=== PATIENT | female | born 1945 ===

== ENCOUNTER 2017-10-30 06:40 | Day surgery (SDC) | payer MEDICARE, OTHER ==
[2015-12-10 11:20] VITALS: BMI 24.7
[2017-10-30 07:34] LABS: INR 1.3; PROTHROMBIN TIME 14.8 SECONDS (9.7-12.2)
[2017-10-30] MEDS ORDERED: Propofol 10 mg/ml Inj (20 ML) ONE (07:43)
--- NOTE | 2017-10-30 07:46 | CP.SDSHP ---
Same Day Surgery H & P - History Proposed Procedure: EGD Pre-Op Diagnosis: epigastric pain. heartburn refractory to therapy - Previous Medical/Surgical History Cardiac: Hypertension, PVD (hyperlipidemia, Iliac occlusion/clot) Previous Surgical History: Embolectomy. EDELMIRA. Cataracts bilat - Allergies Allergies: Allergies No Known Allergies Allergy (Verified 04/23/13 07:48) - Physical Exam Vital Signs: Vital Signs 10/30/17 07:03 Temperature 99 F Pulse Rate 79 Respiratory 19 Rate Blood Pressure 145/73 O2 Sat by Pulse 100 Oximetry Mental Status: Alert & Oriented x3 Neuro: WNL Heart: WNL Lungs: WNL GI: WNL - {Optional Preform as Required} Other Pertinent Findings: Coumadin held for 4 days - Impression Impression: epigastric pain. heartburn refractory to therapy Pt. Evaluated Today:Candidate for Anesthesia & Procedure: Yes - Date & Time Date: 10/30/17 Time: 07:46 Short Stay Discharge - Short Stay Discharge Admitting Diagnosis/Reason for Visit: EPIGASTRIC PAIN / HEARTBURN / NAUSEA Disposition: HOME/ ROUTINE
[2017-10-30] MEDS ORDERED: Lactated Ringer's 1,000 ML IV ONE (07:50)
[2017-10-30] MEDS ORDERED: Pantoprazole 40 mg EC Tab PO ONE (08:00)
[2017-10-30 08:26] VITALS: TEMP 98.1
[2017-10-30 08:59] VITALS: O2SAT 100
[2017-10-30 09:04] VITALS: BP 116/70; PULSE 77; RESP 12
== END 2017-10-30 09:18 | disposition home or self-care (01) ==
LOC: C.ENDO 06:40
PROVIDERS: ATTEND Internal Medicine Gastroenterology
DX: R12 Heartburn (principal); R11.0 Nausea; K21.0 Gastro-esophageal reflux disease with esophagitis; E78.5 Hyperlipidemia, unspecified; I10 Essential (primary) hypertension; I73.9 Peripheral vascular disease, unspecified; K44.9 Diaphragmatic hernia without obstruction or gangrene; K29.50 Unspecified chronic gastritis without bleeding
CPT/HCPCS: 36415; 43239; 85610; 85730; 88305; J2001; J2704; J7120

== ENCOUNTER 2018-09-05 12:13 | Inpatient (IN) | payer MEDICARE, OTHER | END 2018-09-07 19:51 | disposition home or self-care (01) | LOC: C.ER 12:13 → C.6T 09-06 14:08 → C.3T 19:08 → C.9E 21:06 ==

== ENCOUNTER 2018-09-17 11:27 | Outpatient (CLI) | payer MEDICARE, OTHER | END 2018-09-17 11:28 | disposition home or self-care (01) | LOC: C.CTH 11:27 ==

== ENCOUNTER 2018-09-17 19:29 | Inpatient (IN) | payer MEDICARE, OTHER ==
[2018-09-17 19:29] VITALS: BMI 24.7
--- NOTE | 2018-09-17 20:00 | C.PDOC ---
History Of Present Illness The patient is a 72 year old female whose past medical history includes gastritis, hypertension, high cholesterol, previous blood clot in right lower extremity, and recent diagnosis of retroperitoneal bleed. Patent presents to the ED s/p CT angio that indicated occlusion of left lower extremity artery. Patient was endorsed by Dr. Pichardo to be started on Heparin. Patient currently reports only mild pain to her left lower extremity. She denies fever, chills, night sweats, chest pain, dark/bloody stool, back pain, abdominal pain, right-sided pain or recent falls/trauma. Time Seen by Provider: 09/17/18 20:00 Chief Complaint (Nursing): Lower Extremity Problem/Injury History Per: Patient History/Exam Limitations: no limitations Onset/Duration Of Symptoms: Hrs Current Symptoms Are (Timing): Still Present Additional History Per: Patient - Knee Description Of Injury: denies: Fell - Ankle/Foot Description Of Injury: denies: Fell Past Medical History Reviewed: Historical Data, Nursing Documentation, Vital Signs Vital Signs: Last Vital Signs Temp 98.0 F 09/17/18 19:32 Pulse 60 09/17/18 19:32 Resp 18 09/17/18 19:32 BP 127/60 09/17/18 19:32 Pulse Ox 98 09/17/18 19:32 - Medical History PMH: Alzheimer's Disease (EARLY), Gastritis, HTN, Hypercholesterolemia, Pneumonia Denies: Chronic Kidney Disease Surgical History: Endoscopy, - [facility] Procedures COLONOSCOPY (04/23/13) ESOPHAGOGASTRODUODENOSCOPY [EGD] W/CLOSED BIOPSY (04/23/13) Family History: States: Unknown Family Hx - Social History Hx Alcohol Use: No Hx Substance Use: No - Immunization History Hx Tetanus Toxoid Vaccination: (unk) Hx Influenza Vaccination: Yes Hx Pneumococcal Vaccination: No Review Of Systems Constitutional: Negative for: Fever, Chills Gastrointestinal: Negative for: Abdominal Pain Musculoskeletal: Positive for: Leg Pain (left, lower ). Negative for: Back Pain Physical Exam - Physical Exam Appears: Non-toxic, No Acute Distress Skin: Normal Color, Warm, Dry Head: Atraumatic, Normacephalic Eye(s): bilateral: Normal Inspection Oral Mucosa: Moist Neck: Supple Chest: Symmetrical, No Deformity, No Tenderness Cardiovascular: Rhythm Regular, No Murmur Respiratory: Normal Breath Sounds, No Rales, No Rhonchi, No Wheezing Back: Normal Inspection, No CVA Tenderness, No Vertebral Tenderness, No Decreased ROM, No Muscle Spasm, No Paraspinal Tenderness Extremity: Normal ROM, Capillary Refill (less than 2 seconds ), Other (no discoloration, warm to touch ) Extremity: Bilateral: Atraumatic Pulses: Left Dorsalis Pedis: Normal, Right Dorsalis Pedis: Normal Neurological/Psych: Oriented x3, Normal Speech, Normal Cognition, Normal Motor, Normal Sensation ED Course And Treatment - Laboratory Results Result Diagrams: 09/27/18 06:08 09/27/18 06:00 O2 Sat by Pulse Oximetry: 98 (on RA ) Pulse Ox Interpretation: Normal Medical Decision Making Medical Decision Making: Impression: left lower extremity arterial occlusion Progress: Bloodwork ordered and reviewed. Pt denies any flank pain or vertebral pain. No ecchymosis noted on exam. Appreciate consult with Dr. Pichardo, recommends Heparin. Case discussed with Dr. Holly, who will admit patient to his service and recommends DVT/PE nomogram without bolus. DVT/PE nomogram without bolus ordered and reviewed. Heparin IV given. Disposition - Disposition Disposition: HOSPITALIZED Disposition Time: 21:32 Condition: GOOD - Clinical Impression Clinical Impression: Arterial occlusion - Scribe Statement The provider has reviewed the documentation as recorded by the Scribe (Kiesha Mcduffie) Provider Attestation: All medical record entries made by the Scribe were at my direction and personally dictated by me. I have reviewed the chart and agree that the record accurately reflects my personal performance of the history, physical exam, medical decision making, and the department course for this patient. I have also personally directed, reviewed, and agree with the discharge instructions and disposition.
[2018-09-17] MEDS ORDERED: Heparin25000 units/250ml 1/2NS 25,000 UNITS/250 ML BAG IV ONE (20:29)
[2018-09-17 20:49] LABS: BASO # 0.1 K/uL (0.0-0.2); EOS # 0.3 K/uL (0.0-0.7); LYMPH % 9.6 % (20.0-40.0); MONO # 1.1 K/uL (0.0-0.8)
[2018-09-17 20:56] LABS: BASO % 0.8 % (0.0-2.0); EOS % 2.7 % (0.0-4.0); HEMOGLOBIN 14.6 g/dL (11.0-16.0); LYMPH # 1.1 K/uL (1.0-4.3); MEAN CORPUSCULAR HEMOGLOBIN 26.9 pg (27.0-31.0); MEAN CORPUSCULAR HGB CONC 31.7 g/dL (33.0-37.0); MEAN PLATELET VOLUME 8.5 fL (7.2-11.7); MONO % 9.3 % (0.0-10.0); NEUT # 9.2 K/uL (1.8-7.0); NEUT % 77.6 % (50.0-75.0); PLATELET COUNT 531 K/uL (130-400); RBC 5.45 Mil/uL (3.80-5.20); RED CELL DISTRIBUTION WIDTH 17.4 % (11.5-14.5); WHITE BLOOD COUNT 11.9 K/uL (4.8-10.8)
[2018-09-17 20:57] LABS: MEAN CELL VOLUME 84.7 fL (81.0-99.0)
[2018-09-17 21:06] LABS: ALB/GLOB RATIO 1.4 (1.0-2.1); ALBUMIN 4.5 g/dL (3.5-5.0); ALT/SGPT 21 U/L (9-52); AST/SGOT 68 U/L (14-36); BLOOD UREA NITROGEN 19 mg/dL (7-17); CALCIUM 9.2 mg/dl (8.6-10.4); GFR NON-AFRICAN AMERICAN > 60
[2018-09-17 21:19] LABS: EOSINOPHIL 2 % (0-4); HYPOCHROMIC SLIGHT; LYMPHOCYTE 11 % (20-40); MICROCYTOSIS SLIGHT; MONOCYTE 7 % (0-10); NEUTROPHIL 80 % (50-75); PLATELET ESTIMATE NORMAL (NORMAL); TOTAL CELLS COUNTED 100
[2018-09-17 21:23] LABS: INR 1.1; PROTHROMBIN TIME 12.2 SECONDS (9.7-12.2)
--- NOTE | 2018-09-18 02:05 | CP.PCM.CON ---
History of Present Illness - History of Present Illness History of Present Illness: Vascular Surgery Re: LLE arterial occlusion HPI: 72F well know to Dr. Pichardo's service. Pt presented to the ED s/p CTA tshowing occlusion of the left popliteal artery. Dr. Pichardo told her to come to ED for treatment and possible intervention. Pt currently has mild pain left lower extremity. Denies fever, chills, night sweats, chest pain, dark/bloody stool, back pain, abdominal pain. PMH: GERD, HTN, HLD, hx RLE DVT, hx retroperitoneal bleed, Alzheimers PSH: , Hysterectomy SH: Denies tobacco, EtOH, and drug use FH: Noncontributory All: NKDA Meds: See MAR Review of Systems - Review of Systems All systems: reviewed and no additional remarkable complaints except (as per HPI) Past Patient History - Past Medical History & Family History Past Medical History?: Yes - Past Social History Smoking Status: Never Smoked - CARDIAC Hx Hypercholesterolemia: Yes Hx Hypertension: Yes - PULMONARY Hx Pneumonia: Yes - NEUROLOGICAL Hx Alzheimer's Disease: Yes (EARLY) - HEENT Hx HEENT Problems: Yes Hx Cataracts: Yes (JOSH) - RENAL Hx Chronic Kidney Disease: No - ENDOCRINE/METABOLIC Hx Endocrine Disorders: No - HEMATOLOGICAL/ONCOLOGICAL Hx Blood Disorders: No - INTEGUMENTARY Hx Dermatological Problems: No - MUSCULOSKELETAL/RHEUMATOLOGICAL Hx Musculoskeletal Disorders: Yes Hx Degenerative Joint Disease: Yes Hx Falls: No - GASTROINTESTINAL Hx Gastritis: Yes - GENITOURINARY/GYNECOLOGICAL Hx Genitourinary Disorders: No - PSYCHIATRIC Hx Substance Use: No - SURGICAL HISTORY Hx Surgeries: Yes Hx Cataract Extraction: Yes - ANESTHESIA Hx Anesthesia: Yes Hx Anesthesia Reactions: No Hx Malignant Hyperthermia: No Meds Allergies/Adverse Reactions: Allergies Allergy/AdvReac Type Severity Reaction Status Date / Time No Known Allergies Allergy Verified 09/17/18 19:43 - Medications Medications: Current Medications Amlodipine Besylate (Norvasc) 5 mg PO DAILY [facility] Heparin Sodium/Sodium Chloride (Heparin 18135 Units/250ml 1/2 Normal Saline) 25,000 units in 250 mls @ 11.186 mls/hr IV .[id number] ONE; Protocol Stop: 09/18/18 18:49 Last Admin: 09/17/18 22:10 Dose: 18 units/kg/hr, 11.186 mls/hr Losartan Potassium (Cozaar) 25 mg PO DAILY [facility] Pneumococcal Polyvalent Vaccine (Pneumovax 23 Vaccine) 0.5 ml IM .ONCE ONE Stop: 09/20/18 14:01 Physical Exam - Constitutional Appears: Non-toxic, No Acute Distress - Head Exam Head Exam: ATRAUMATIC, NORMOCEPHALIC - Eye Exam Eye Exam: EOMI. absent: Scleral icterus - ENT Exam ENT Exam: Mucous Membranes Moist Additional comments: trachea midline - Neck Exam Neck exam: Negative for: Lymphadenopathy, Tenderness - Respiratory Exam Respiratory Exam: NORMAL BREATHING PATTERN. absent: Respiratory Distress - Cardiovascular Exam Cardiovascular Exam: +S1, +S2. absent: Bradycardia, Tachycardia - GI/Abdominal Exam GI & Abdominal Exam: Soft. absent: Distended, Tenderness - Rectal Exam Rectal Exam: Deferred - Extremities Exam Extremities exam: Positive for: pedal edema (mild). Negative for: calf tenderness Additional comments: Dopplerable pulse on RLE, no signal on LLE., legs warm to touch - Back Exam Back exam: CVA tenderness (L), CVA tenderness (R) - Neurological Exam Neurological exam: Alert, Oriented x3 - Skin Skin Exam: Dry, Warm Results - Vital Signs Recent Vital Signs: Last Vital Signs Temp 98.3 F 09/17/18 23:47 Pulse 65 09/17/18 23:47 Resp 20 09/17/18 23:47 BP 132/70 09/17/18 23:47 Pulse Ox 95 09/17/18 23:47 - Labs Result Diagrams: 09/17/18 20:37 09/17/18 20:37 Labs: Laboratory Results - last 24 hr 09/17/18 09/17/18 09/17/18 20:37 20:37 21:09 WBC 11.9 H RBC 5.45 H Hgb 14.6 Hct 46.1 MCV 84.7 D MCH 26.9 L MCHC 31.7 L RDW 17.4 H Plt Count 531 H MPV 8.5 Neut % (Auto) 77.6 H Lymph % (Auto) 9.6 L [place] % (Auto) 9.3 Eos % (Auto) 2.7 Baso % (Auto) 0.8 Neut # (Auto) 9.2 H Lymph # (Auto) 1.1 [place] # (Auto) 1.1 H Eos # (Auto) 0.3 Baso # (Auto) 0.1 Neutrophils % (Manual) 80 H Lymphocytes % (Manual) 11 L Monocytes % (Manual) 7 Eosinophils % (Manual) 2 Platelet Estimate Normal Hypochromasia (manual) Slight Microcytosis (manual) Slight PT 12.2 INR 1.1 APTT 30 Sodium 138 Potassium 5.2 Chloride 104 Carbon Dioxide 25 Anion Gap 15 BUN 19 H Creatinine 0.9 Est GFR ( Amer) > 60 Est GFR (Non-Af Amer) > 60 Random Glucose 143 H Calcium 9.2 Total Bilirubin 0.7 AST 68 H D ALT 21 Alkaline Phosphatase 68 Total Protein 7.7 Albumin 4.5 Globulin 3.2 Albumin/Globulin Ratio 1.4 Blood Type Antibody Screen 09/17/18 21:09 WBC RBC Hgb Hct MCV MCH MCHC RDW Plt Count MPV Neut % (Auto) Lymph % (Auto) [place] % (Auto) Eos % (Auto) Baso % (Auto) Neut # (Auto) Lymph # (Auto) [place] # (Auto) Eos # (Auto) Baso # (Auto) Neutrophils % (Manual) Lymphocytes % (Manual) Monocytes % (Manual) Eosinophils % (Manual) Platelet Estimate Hypochromasia (manual) Microcytosis (manual) PT INR APTT Sodium Potassium Chloride Carbon Dioxide Anion Gap BUN Creatinine Est GFR ( Amer) Est GFR (Non-Af Amer) Random Glucose Calcium Total Bilirubin AST ALT Alkaline Phosphatase Total Protein Albumin Globulin Albumin/Globulin Ratio Blood Type A POSITIVE Antibody Screen Negative - Imaging and Cardiology CT scan - abdomen Status: Image reviewed by me, Report reviewed by me CT scan - Angio Status: Image reviewed by me, Report reviewed by me Assessment & Plan - Assessment and Plan (Free Text) Assessment: 72F with LLE popliteal occlusion Plan: Heparin GTT CTA Chest in AM NPO Planning for Thrombectomy D/W Dr. Kylee Randolph PGY4
[2018-09-18 09:40] LABS: HEMOGLOBIN 14.5 g/dL (11.0-16.0); MEAN CELL VOLUME 83.5 fL (81.0-99.0); MEAN CORPUSCULAR HEMOGLOBIN 27.6 pg (27.0-31.0); MEAN CORPUSCULAR HGB CONC 33.1 g/dL (33.0-37.0); RBC 5.26 Mil/uL (3.80-5.20); RED CELL DISTRIBUTION WIDTH 16.6 % (11.5-14.5); WHITE BLOOD COUNT 9.7 K/uL (4.8-10.8)
[2018-09-18 10:00] LABS: ALB/GLOB RATIO 1.4 (1.0-2.1); ALBUMIN 4.2 g/dL (3.5-5.0); ALT/SGPT 26 U/L (9-52); AST/SGOT 41 U/L (14-36); BLOOD UREA NITROGEN 11 mg/dL (7-17); CALCIUM 9.3 mg/dl (8.6-10.4); GFR NON-AFRICAN AMERICAN > 60
--- NOTE | 2018-09-18 11:56 | CP.PCM.CON ---
History of Present Illness - History of Present Illness History of Present Illness: CC: CLI HPI: 72 year old female with following chronic medical problems 1. PVD s/p revascularization now with occlusion of popliteal artery 2. hyperlipidemia chronic and stable on statin 3. HTN is chronic and stable on losartan and norvasc Review of Systems - Review of Systems All systems: reviewed and no additional remarkable complaints except Review of Systems: + Leg pain Past Patient History - Past Medical History & Family History Past Medical History?: Yes - Past Social History Smoking Status: Never Smoked - CARDIAC Hx Hypercholesterolemia: Yes Hx Hypertension: Yes - PULMONARY Hx Pneumonia: Yes - NEUROLOGICAL Hx Alzheimer's Disease: Yes (EARLY) - HEENT Hx HEENT Problems: Yes Hx Cataracts: Yes (JOSH) - RENAL Hx Chronic Kidney Disease: No - ENDOCRINE/METABOLIC Hx Endocrine Disorders: No - HEMATOLOGICAL/ONCOLOGICAL Hx Blood Disorders: No - INTEGUMENTARY Hx Dermatological Problems: No - MUSCULOSKELETAL/RHEUMATOLOGICAL Hx Musculoskeletal Disorders: Yes Hx Degenerative Joint Disease: Yes Hx Falls: No - GASTROINTESTINAL Hx Gastritis: Yes - GENITOURINARY/GYNECOLOGICAL Hx Genitourinary Disorders: No - PSYCHIATRIC Hx Substance Use: No - SURGICAL HISTORY Hx Surgeries: Yes Hx Cataract Extraction: Yes - ANESTHESIA Hx Anesthesia: Yes Hx Anesthesia Reactions: No Hx Malignant Hyperthermia: No Meds Allergies/Adverse Reactions: Allergies Allergy/AdvReac Type Severity Reaction Status Date / Time No Known Allergies Allergy Verified 09/17/18 19:43 - Medications Medications: Current Medications Amlodipine Besylate (Norvasc) 5 mg PO DAILY [facility] Heparin Sodium/Sodium Chloride (Heparin 46055 Units/250ml 1/2 Normal Saline) 25,000 units in 250 mls @ 11.186 mls/hr IV .[id number] ONE; Protocol Stop: 09/18/18 18:49 Last Admin: 09/17/18 22:10 Dose: 18 units/kg/hr, 11.186 mls/hr Losartan Potassium (Cozaar) 25 mg PO DAILY [facility] Pneumococcal Polyvalent Vaccine (Pneumovax 23 Vaccine) 0.5 ml IM .ONCE ONE Stop: 09/20/18 14:01 Physical Exam - Constitutional Appears: Well, Non-toxic - Head Exam Head Exam: ATRAUMATIC, NORMAL INSPECTION - Eye Exam Eye Exam: PERRL, Scleral icterus - ENT Exam ENT Exam: Mucous Membranes Moist, Normal External Ear Exam - Neck Exam Neck exam: Positive for: Full Rom. Negative for: Lymphadenopathy, Thyromegaly - Respiratory Exam Respiratory Exam: Clear to Auscultation Bilateral, NORMAL BREATHING PATTERN - Cardiovascular Exam Cardiovascular Exam: REGULAR RHYTHM, RRR, +S1, +S2. absent: JVD Additional comments: cool right lower extremtiy, + sensation, absent DP, absent PT - GI/Abdominal Exam GI & Abdominal Exam: Normal Bowel Sounds. absent: Organomegaly - Extremities Exam Extremities exam: Positive for: normal inspection. Negative for: calf tenderness - Neurological Exam Neurological exam: CN II-XII Intact, Oriented x3 - Psychiatric Exam Psychiatric exam: Normal Affect, Normal Mood Results - Vital Signs Recent Vital Signs: Last Vital Signs Temp 98.3 F 09/17/18 23:47 Pulse 68 09/18/18 01:00 Resp 20 09/17/18 23:47 BP 132/70 09/17/18 23:47 Pulse Ox 95 09/17/18 23:47 - Labs Result Diagrams: 09/18/18 09:15 09/18/18 09:15 Labs: Laboratory Results - last 24 hr 09/17/18 09/17/18 09/17/18 20:37 20:37 21:09 WBC 11.9 H RBC 5.45 H Hgb 14.6 Hct 46.1 MCV 84.7 D MCH 26.9 L MCHC 31.7 L RDW 17.4 H Plt Count 531 H MPV 8.5 Neut % (Auto) 77.6 H Lymph % (Auto) 9.6 L [place] % (Auto) 9.3 Eos % (Auto) 2.7 Baso % (Auto) 0.8 Neut # (Auto) 9.2 H Lymph # (Auto) 1.1 [place] # (Auto) 1.1 H Eos # (Auto) 0.3 Baso # (Auto) 0.1 Neutrophils % (Manual) 80 H Lymphocytes % (Manual) 11 L Monocytes % (Manual) 7 Eosinophils % (Manual) 2 Platelet Estimate Normal Hypochromasia (manual) Slight Microcytosis (manual) Slight PT 12.2 INR 1.1 APTT 30 Sodium 138 Potassium 5.2 Chloride 104 Carbon Dioxide 25 Anion Gap 15 BUN 19 H Creatinine 0.9 Est GFR ( Amer) > 60 Est GFR (Non-Af Amer) > 60 Random Glucose 143 H Calcium 9.2 Phosphorus Magnesium Total Bilirubin 0.7 AST 68 H D ALT 21 Alkaline Phosphatase 68 Total Protein 7.7 Albumin 4.5 Globulin 3.2 Albumin/Globulin Ratio 1.4 Blood Type Antibody Screen 09/17/18 09/18/18 09/18/18 21:09 03:32 09:15 WBC 9.7 RBC 5.26 H Hgb 14.5 Hct 43.9 MCV 83.5 MCH 27.6 MCHC 33.1 RDW 16.6 H Plt Count 439 H MPV 8.0 Neut % (Auto) Lymph % (Auto) [place] % (Auto) Eos % (Auto) Baso % (Auto) Neut # (Auto) Lymph # (Auto) [place] # (Auto) Eos # (Auto) Baso # (Auto) Neutrophils % (Manual) Lymphocytes % (Manual) Monocytes % (Manual) Eosinophils % (Manual) Platelet Estimate Hypochromasia (manual) Microcytosis (manual) PT INR APTT 77 H D Sodium Potassium Chloride Carbon Dioxide Anion Gap BUN Creatinine Est GFR ( Amer) Est GFR (Non-Af Amer) Random Glucose Calcium Phosphorus Magnesium Total Bilirubin AST ALT Alkaline Phosphatase Total Protein Albumin Globulin Albumin/Globulin Ratio Blood Type A POSITIVE Antibody Screen Negative 09/18/18 09/18/18 09:15 09:15 WBC RBC Hgb Hct MCV MCH MCHC RDW Plt Count MPV Neut % (Auto) Lymph % (Auto) [place] % (Auto) Eos % (Auto) Baso % (Auto) Neut # (Auto) Lymph # (Auto) [place] # (Auto) Eos # (Auto) Baso # (Auto) Neutrophils % (Manual) Lymphocytes % (Manual) Monocytes % (Manual) Eosinophils % (Manual) Platelet Estimate Hypochromasia (manual) Microcytosis (manual) PT INR APTT 73 H Sodium 138 Potassium 4.4 Chloride 104 Carbon Dioxide 28 Anion Gap 10 BUN 11 Creatinine 0.7 Est GFR ( Amer) > 60 Est GFR (Non-Af Amer) > 60 Random Glucose 156 H Calcium 9.3 Phosphorus 3.3 Magnesium 1.9 Total Bilirubin 0.5 AST 41 H D ALT 26 Alkaline Phosphatase 78 Total Protein 7.1 Albumin 4.2 Globulin 2.9 Albumin/Globulin Ratio 1.4 Blood Type Antibody Screen - Imaging and Cardiology CT scan - abdomen Status: Pending Assessment & Plan - Assessment and Plan (Free Text) Assessment: 72 year old female wtih coagulopathy now with critical limb ischemia she is acceptable risk for urgent procedure, 2D echo shows normal filling pressures and normal systolic function no further work up is required hypercoagulable state - Hematology, anticoagulation Ideally the bleeding nidus should be identified and possibly removed surgically to allow watcher automat long goods anticoagulation Hyperlipidemia chronic and stable on statin HTN is chronic amlodipine and losartan Discussed the difficult therapeutic challenge we are in with the patient and her daughter
[2018-09-18] MEDS: Morphine 4 MG/ML VIAL IVP PRN (12:56)
--- NOTE | 2018-09-18 12:56 | CT ---
Date of service: 09/18/2018 PROCEDURE: CT Abdomen and Pelvis without intravenous contrast HISTORY: bleeding COMPARISON: 09/07/2018 TECHNIQUE: Without contrast.. Contrast dose: 0 Radiation dose: Total exam DLP = 520.56 mGy-cm. This CT exam was performed using one or more of the following dose reduction techniques: Automated exposure control, adjustment of the mA and/or kV according to patient size, and/or use of iterative reconstruction technique. FINDINGS: LOWER THORAX: Unremarkable. LIVER: Normal size, contour and attenuation. Rounded low-attenuation 1.5 cm mass in right lobe of liver. Nonspecific. Possible cyst or hemangioma. GALLBLADDER AND BILE DUCTS: Unremarkable. PANCREAS: Unremarkable. No gross lesion or ductal dilatation. SPLEEN: Unremarkable. ADRENALS: There is a subacute hematoma in the region of the right adrenal gland, possibly an adrenal hemorrhage. There is retroperitoneal hemorrhage adjacent to the right adrenal gland extending to the level of the inferior vena cava the retroperitoneal hemorrhage seen inferior to this on examination of 09/07/2018 has resolved. The left adrenal is unremarkable in appearance. KIDNEYS AND URETERS: There is residual contrast seen still within the renal cortex bilaterally raising suspicion of acute kidney injury, possibly contrast induced. In addition, there are several wedge shaped areas of nonenhancement in the right renal cortex which may reflect pyelonephritis or areas of focal cortical infarction. There is some linear high attenuation seen in the upper pole right kidney extending through the cortex. There is similar linear high attenuation seen in the mid left kidney extending through the cortex. Significance uncertain on these long delayed images following contrast administration on the previous day. VASCULATURE: Unremarkable. No aortic aneurysm. There is calcification of the abdominal aorta. BOWEL: Unremarkable. No obstruction. No gross mural thickening. APPENDIX: Unremarkable. Normal appendix. PERITONEUM: No ascites or pneumoperitoneum. There is a small amount of blood seen along the lower right paracolic gutter. LYMPH NODES: Unremarkable. No enlarged lymph nodes. BLADDER: Bladder is poorly distended. High attenuation excreted contrast material is seen within the bladder lumen. REPRODUCTIVE: Status post hysterectomy BONES: Thoracolumbar levoscoliosis. No acute fracture. OTHER FINDINGS: None. IMPRESSION: Retained cortical contrast in both kidneys from contrast study of the previous day. This raises a suspicion of contrast induced nephropathy or acute kidney injury. Also noted is several wedge-shaped areas of poor enhancement in the right renal cortex raising suspicion of renal infarcts. Differential diagnosis includes pyelonephritis. Correlate with urinalysis and history.. Right adrenal hemorrhage, subacute. Additional minor findings as above.
[2018-09-18] MEDS ORDERED: Iohexol 350mg/ml 100 ML ONE (13:23)
--- NOTE | 2018-09-18 13:50 | CARD ---
APPROVED REPORT Date of service: 09/18/2018 EXAM: Two-dimensional and M-mode echocardiogram with Doppler and color Doppler. Other Information Quality : GoodRhythm : INDICATION Pre-Op RISK FACTORS Hypertension 2D DIMENSIONS IVSd0.7 (0.7-1.1cm)LVDd3.8 (3.9-5.9cm) PWd1.0 (0.7-1.1cm)LA Sznuvx35 (18-58mL) LVDs2.7 (2.5-4.0cm)FS (%) 28.4 % LVEF (%)55.5 (>50%)LVEF (Story's)68.48 % IVC0.00 cm M-Mode DIMENSIONS RVDd1.31 (2.1-3.2cm)Left Atrium (MM)4.16 (2.5-4.0cm) IVSd1.28 (0.7-1.1cm)Aortic Root2.67 (2.2-3.7cm) LVDd5.04 (4.0-5.6cm)Aortic Cusp Exc.1.99 (1.5-2.0cm) PWd0.85 (0.7-1.1cm)FS (%) 51 % LVDs2.46 (2.0-3.8cm)LVEF (%)60 (>50%) Mitral Valve MV E Amyxrucf386.1cm/sMV A Bfwpvpbm89.8cm/sE/A ratio1.2 TDI Lateral E' Peak V8.35cm/sMedial E' Peak V8.48cm/sE/Lateral E'12.0 E/Medial E'11.8 Tricuspid Valve TR Peak [id number]/sTR Peak Gr.[id number] LEFT VENTRICLE The left ventricle is normal size. There is normal left ventricular wall thickness. The Ejection Fraction is 60-65%. There is normal LV segmental wall motion. The left ventricular diastolic function is normal. RIGHT VENTRICLE The right ventricle is normal size. The right ventricular systolic function is normal. ATRIA The left atrium is mildly dilated. The right atrium size is normal. The interatrial septum is intact with no evidence for an atrial septal defect. AORTIC VALVE The aortic valve is normal in structure. No aortic regurgitation is present. MITRAL VALVE The mitral valve is normal in structure. Mitral regurgitation is trace. TRICUSPID VALVE The tricuspid valve is normal in structure. There is mild tricuspid regurgitation. Right ventricular systolic pressure is estimated at 28 mmHg. There is no pulmonary hypertension. PULMONIC VALVE The pulmonary valve is normal in structure. There is mild pulmonic valvular regurgitation. GREAT VESSELS The aortic root is normal in size. The IVC is normal in size and collapses >50% with inspiration. PERICARDIAL EFFUSION small posterior pericardial effusion is noted. <Conclusion> The left ventricle is normal size. There is normal left ventricular wall thickness. The Ejection Fraction is 60-65%. The left ventricular diastolic function is normal. The left atrium is mildly dilated. There is mild tricuspid regurgitation. Right ventricular systolic pressure is estimated at 28 mmHg. There is no pulmonary hypertension. The aortic root is normal in size. The IVC is normal in size and collapses >50% with inspiration. small posterior pericardial effusion is noted.
[2018-09-18] MEDS ORDERED: Magnesium Citrate Oral SOL (300 ml) PO ONE (14:30)
[2018-09-18] MEDS ORDERED: Iodixanol 320 mg/ml 150 ml Bottle IV ONE (15:43)
--- NOTE | 2018-09-18 17:00 | CP.PCM.CON ---
History of Present Illness - History of Present Illness History of Present Illness: 72 yo woman admitted for thrombectomy after she was seen by Vascular and found to have an acute popliteal artery thrombus. PMHx- The patient has a history of Rt. lower extremity thrombus in 2016, s/p thrombectomy, placed on coumadin and Pletal, did fairly well, until recently when she c/o Rt. flank pain and a scan showed adrenal and retroperitoneal hemorrhage, requiring her to stop the Coumadin and Pletal. 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 The patient denies any past history of bleeding, easy bruising, other DVTs, early losses Past Patient History - Past Medical History & Family History Past Medical History?: Yes - Past Social History Smoking Status: Never Smoked - CARDIAC Hx Hypercholesterolemia: Yes Hx Hypertension: Yes - PULMONARY Hx Pneumonia: Yes - NEUROLOGICAL Hx Alzheimer's Disease: Yes (EARLY) - HEENT Hx HEENT Problems: Yes Hx Cataracts: Yes (JOSH) - RENAL Hx Chronic Kidney Disease: No - ENDOCRINE/METABOLIC Hx Endocrine Disorders: No - HEMATOLOGICAL/ONCOLOGICAL Hx Blood Disorders: No - INTEGUMENTARY Hx Dermatological Problems: No - MUSCULOSKELETAL/RHEUMATOLOGICAL Hx Musculoskeletal Disorders: Yes Hx Degenerative Joint Disease: Yes Hx Falls: No - GASTROINTESTINAL Hx Gastritis: Yes - GENITOURINARY/GYNECOLOGICAL Hx Genitourinary Disorders: No - PSYCHIATRIC Hx Substance Use: No - SURGICAL HISTORY Hx Surgeries: Yes Hx Cataract Extraction: Yes - ANESTHESIA Hx Anesthesia: Yes Hx Anesthesia Reactions: No Hx Malignant Hyperthermia: No Meds Allergies/Adverse Reactions: Allergies Allergy/AdvReac Type Severity Reaction Status Date / Time No Known Allergies Allergy Verified 09/17/18 19:43 - Medications Medications: Current Medications Amlodipine Besylate (Norvasc) 5 mg PO DAILY [facility] Last Admin: 09/18/18 12:06 Dose: 5 mg Heparin Sodium/Sodium Chloride (Heparin 81201 Units/250ml 1/2 Normal Saline) 25,000 units in 250 mls @ 11.186 mls/hr IV .[id number] ONE; Protocol Stop: 09/18/18 18:49 Last Admin: 09/17/18 22:10 Dose: 18 units/kg/hr, 11.186 mls/hr Losartan Potassium (Cozaar) 25 mg PO DAILY [facility] Last Admin: 09/18/18 12:06 Dose: 25 mg Morphine Sulfate (Morphine) 2 mg IVP Q4 PRN PRN Reason: Pain, severe (8-10) Last Admin: 09/18/18 12:56 Dose: 2 mg Pneumococcal Polyvalent Vaccine (Pneumovax 23 Vaccine) 0.5 ml IM .ONCE ONE Stop: 09/20/18 14:01 Results - Vital Signs Recent Vital Signs: Last Vital Signs Temp 98 F 09/18/18 16:48 Pulse 78 09/18/18 16:48 Resp 20 09/18/18 16:48 BP 156/78 H 09/18/18 16:48 Pulse Ox 95 09/18/18 16:48 - Labs Result Diagrams: 09/18/18 09:15 09/18/18 09:15 Labs: Laboratory Results - last 24 hr 09/17/18 09/17/18 09/17/18 20:37 20:37 21:09 WBC 11.9 H RBC 5.45 H Hgb 14.6 Hct 46.1 MCV 84.7 D MCH 26.9 L MCHC 31.7 L RDW 17.4 H Plt Count 531 H MPV 8.5 Neut % (Auto) 77.6 H Lymph % (Auto) 9.6 L [place] % (Auto) 9.3 Eos % (Auto) 2.7 Baso % (Auto) 0.8 Neut # (Auto) 9.2 H Lymph # (Auto) 1.1 [place] # (Auto) 1.1 H Eos # (Auto) 0.3 Baso # (Auto) 0.1 Neutrophils % (Manual) 80 H Lymphocytes % (Manual) 11 L Monocytes % (Manual) 7 Eosinophils % (Manual) 2 Platelet Estimate Normal Hypochromasia (manual) Slight Microcytosis (manual) Slight PT 12.2 INR 1.1 APTT 30 Sodium 138 Potassium 5.2 Chloride 104 Carbon Dioxide 25 Anion Gap 15 BUN 19 H Creatinine 0.9 Est GFR ( Amer) > 60 Est GFR (Non-Af Amer) > 60 Random Glucose 143 H Calcium 9.2 Phosphorus Magnesium Total Bilirubin 0.7 AST 68 H D ALT 21 Alkaline Phosphatase 68 Total Protein 7.7 Albumin 4.5 Globulin 3.2 Albumin/Globulin Ratio 1.4 Blood Type Antibody Screen 09/17/18 09/18/18 09/18/18 21:09 03:32 09:15 WBC 9.7 RBC 5.26 H Hgb 14.5 Hct 43.9 MCV 83.5 MCH 27.6 MCHC 33.1 RDW 16.6 H Plt Count 439 H MPV 8.0 Neut % (Auto) Lymph % (Auto) [place] % (Auto) Eos % (Auto) Baso % (Auto) Neut # (Auto) Lymph # (Auto) [place] # (Auto) Eos # (Auto) Baso # (Auto) Neutrophils % (Manual) Lymphocytes % (Manual) Monocytes % (Manual) Eosinophils % (Manual) Platelet Estimate Hypochromasia (manual) Microcytosis (manual) PT INR APTT 77 H D Sodium Potassium Chloride Carbon Dioxide Anion Gap BUN Creatinine Est GFR ( Amer) Est GFR (Non-Af Amer) Random Glucose Calcium Phosphorus Magnesium Total Bilirubin AST ALT Alkaline Phosphatase Total Protein Albumin Globulin Albumin/Globulin Ratio Blood Type A POSITIVE Antibody Screen Negative 09/18/18 09/18/18 09:15 09:15 WBC RBC Hgb Hct MCV MCH MCHC RDW Plt Count MPV Neut % (Auto) Lymph % (Auto) [place] % (Auto) Eos % (Auto) Baso % (Auto) Neut # (Auto) Lymph # (Auto) [place] # (Auto) Eos # (Auto) Baso # (Auto) Neutrophils % (Manual) Lymphocytes % (Manual) Monocytes % (Manual) Eosinophils % (Manual) Platelet Estimate Hypochromasia (manual) Microcytosis (manual) PT INR APTT 73 H Sodium 138 Potassium 4.4 Chloride 104 Carbon Dioxide 28 Anion Gap 10 BUN 11 Creatinine 0.7 Est GFR ( Amer) > 60 Est GFR (Non-Af Amer) > 60 Random Glucose 156 H Calcium 9.3 Phosphorus 3.3 Magnesium 1.9 Total Bilirubin 0.5 AST 41 H D ALT 26 Alkaline Phosphatase 78 Total Protein 7.1 Albumin 4.2 Globulin 2.9 Albumin/Globulin Ratio 1.4 Blood Type Antibody Screen Assessment & Plan - Assessment and Plan (Free Text) Assessment: 72 yo woman admitted with left lower extremity acute arterial thrombus, found when she c/o leg pain and went to see the vascular surgeon. The patient has a history of recurrent arterial thrombi, with no obvious risk factors or atherosclerotic changes in her vessels. Will do a hypercoagulable work up, including lupus anticoagulant. Agree with AC+ antiplatelet agent. Because of her persistently elevated platelet count, need to r/o myeloproliferative disease even though the increase is mild and likely reactive.
--- NOTE | 2018-09-18 17:18 | CT ---
PROCEDURE: CT Angiography Chest, Abdomen and Pelvis with and without intravenous contrast HISTORY: Evaluate Thoracic Aorta COMPARISON: CT abdomen/pelvis 09/18/2018 and 09/07/2018 TECHNIQUE: Contiguous axial images of the chest, abdomen and pelvis were obtained in the phase of aortic enhancement. A noncontrast enhanced CT of the chest was also obtained to evaluate for possible intramural thrombus. Coronal and sagittal reformats were generated. IV dose administered: 100 mL Visipaque 320 Radiation dose: Total exam DLP = 953.79 mGy-cm. This CT exam was performed using one or more of the following dose reduction techniques: Automated exposure control, adjustment of the mA and/or kV according to patient size, and/or use of iterative reconstruction technique. FINDINGS: CT ANGIOGRAPHY OF THE CHEST WITH & WITHOUT CONTRAST: AORTA (CHEST AND ABDOMEN): There is no evidence of thoracic aortic dissection. There is atherosclerotic plaque seen in the mid to distal descending thoracic aorta. There is no atherosclerotic plaque seen in the aortic arch or ascending thoracic aorta. There is minimal atherosclerotic intimal calcification seen throughout the thoracic aorta The celiac axis, superior mesenteric artery, inferior mesenteric artery and the renal arteries are widely patent. The iliac bifurcation is unremarkable. LUNGS: Minimal linear scar/atelectasis in the left lower lobe. No pulmonary mass. No infiltrate. MEDIASTINUM: Unremarkable. Normal caliber aorta and pulmonary arterial trunk. No aortic dissection. Normal size heart. LYMPH NODES: Unremarkable. PLEURA: Unremarkable. No pneumothorax. No pleural fluid. BONES: Unremarkable. OTHER FINDINGS: None. CT ANGIOGRAPHY OF THE ABDOMEN AND PELVIS WITH CONTRAST: LIVER: Nonspecific 1.5 cm rounded low low-attenuation mass in the right lobe of the liver otherwise unremarkable. GALLBLADDER AND BILE DUCTS: Unremarkable. PANCREAS: Diffuse pancreatic ductal dilatation.. No pancreatic mass identified. There is a question of pancreas divisum on the basis of this examination. Recommend gastroenterology consult in consideration of possible endoscopic ultrasound examination the possibility of ampullary stricture or ampullary neoplasm should also be considered.. SPLEEN: Several wedge-shaped areas of low attenuation may reflect prior splenic infarcts. No discrete mass. ADRENALS: Right adrenal hemorrhage again noted as described on earlier examination of the same date. Unremarkable left adrenal. KIDNEYS AND URETERS: Several wedge-shaped areas of poor enhancement in the right renal cortex may reflect areas of infarction or pyelonephritis. There is probable old infarct in the upper pole left kidney with cortical scar VASCULATURE: No evidence of abdominal aortic aneurysm. There is atherosclerotic calcification of the abdominal aorta STOMACH AND BOWEL: Unremarkable. No obstruction. No gross mural thickening. APPENDIX: Not included PERITONEUM: Unremarkable. No free fluid. No free air. LYMPH NODES: Unremarkable. No enlarged lymph nodes. BLADDER: Not incur REPRODUCTIVE: Not included BONES: No acute fracture. OTHER FINDINGS: None. IMPRESSION: Atherosclerotic plaque is seen along the mid and distal thoracic aorta. No evidence of aortic dissection or aneurysmal dilatation. Question is raised of possible pancreas divisum. Recommend gastroenterology consult in consideration of possible the endoscopic ultrasound. Question of splenic infarcts. Question of right renal infarcts versus right pyelonephritis right adrenal hemorrhage, stable
--- NOTE | 2018-09-18 20:42 | CP.PCM.HP ---
History of Present Illness - History of Present Illness History of Present Illness: Chief complaint: Worsening left leg pain. HPI: 72-year-old female with a history of thromboembolism, hypertension, hyperlipidemia, gastroesophageal reflux disease came to the emergency room with increasing pain in the left leg. She was recently hospitalized with a retroperitoneal bleed. Following that episode the patient was not taking the Coumadin as well as a Pletal as per cardiology, vascular surgical and PMD opinion.. Patient went to see PMD. At that time she was complaining of left leg pain. Patient was also seen by program project analyst, and then seen by electronic industrial controls mechanic vascular surgery. Patient was having increasing pain in the left leg. Immediately she had CT angiogram, showing evidence of arterial occlusion of the left leg. I spoke to the vascular surgeon Dr. Pichardo, patient needed hospitalization. She came into the emergency room with worsening pain. She has a cold lower extremity on the left side. Worsening pain even at rest noted. Mild nausea vomiting no abdominal pain. Past medical history: DVT, hypertension, hyperlipidemia, gastroesophageal reflux disease Surgical history: Hysterectomy. CT angiogram of the right leg with thrombolysis for acute thrombotic ectatic of the right leg Family history noncontributory Social history non-smoker nonalcoholic. No known drug allergy Medications reviewed. Review of system: Patient is currently having flank pain. Mild nausea noted. No chest pain or shortness of breath On examination: Vital signs stable otherwise. Chest good air entry no rales noted. Heart sounds are regular Abdomen soft. Tenderness in the left leg noted. Patient has a cold lower extremity in the left side. Labs reviewed Persistent bleeding. Stable. Bleeding in the CT scan of the abdomen showing Otherwise labs are stable. Assessment and recommendation: 72-year-old female with a history of arterial thromboembolism, hypertension, hyperlipidemia, gastroesophageal reflux disease. Patient also has a thrombotic episodes. History of thrombocytosis. Patient now admitted with acute retroperitoneal bleeding on the right side involving the adrenal glands. Patient now admitted with a possible ischemia of the left lower extremity. We will get vascular surgery evaluation. Started on IV heparin. We will closely monitor the retroperitoneal hematoma. Patient is at high risk for bleeding and also high risk for thrombosis. Cardiology, hematology evaluation. Discussed with the family. We will follow the patient Present on Admission - Present on Admission Any Indicators Present on Admission: No History of DVT/PE: No History of Uncontrolled Diabetes: No Urinary Catheter: No Decubitus Ulcer Present: No Past Patient History - Past Medical History & Family History Past Medical History?: Yes - Past Social History Smoking Status: Never Smoked - CARDIAC Hx Hypercholesterolemia: Yes Hx Hypertension: Yes - PULMONARY Hx Pneumonia: Yes - NEUROLOGICAL Hx Alzheimer's Disease: Yes (EARLY) - HEENT Hx HEENT Problems: Yes Hx Cataracts: Yes (JOSH) - RENAL Hx Chronic Kidney Disease: No - ENDOCRINE/METABOLIC Hx Endocrine Disorders: No - HEMATOLOGICAL/ONCOLOGICAL Hx Blood Disorders: No - INTEGUMENTARY Hx Dermatological Problems: No - MUSCULOSKELETAL/RHEUMATOLOGICAL Hx Musculoskeletal Disorders: Yes Hx Degenerative Joint Disease: Yes Hx Falls: No - GASTROINTESTINAL Hx Gastritis: Yes - GENITOURINARY/GYNECOLOGICAL Hx Genitourinary Disorders: No - PSYCHIATRIC Hx Substance Use: No - SURGICAL HISTORY Hx Surgeries: Yes Hx Cataract Extraction: Yes - ANESTHESIA Hx Anesthesia: Yes Hx Anesthesia Reactions: No Hx Malignant Hyperthermia: No Meds Allergies/Adverse Reactions: Allergies Allergy/AdvReac Type Severity Reaction Status Date / Time No Known Allergies Allergy Verified 09/17/18 19:43 Results - Vital Signs Recent Vital Signs: Last Vital Signs Temp 98 F 09/18/18 16:48 Pulse 78 09/18/18 16:48 Resp 20 09/18/18 16:48 BP 156/78 H 09/18/18 16:48 Pulse Ox 95 09/18/18 16:48 - Labs Result Diagrams: 09/18/18 09:15 09/18/18 09:15 Labs: Laboratory Results - last 24 hr 09/17/18 09/17/18 09/17/18 20:37 20:37 21:09 WBC 11.9 H RBC 5.45 H Hgb 14.6 Hct 46.1 MCV 84.7 D MCH 26.9 L MCHC 31.7 L RDW 17.4 H Plt Count 531 H MPV 8.5 Neut % (Auto) 77.6 H Lymph % (Auto) 9.6 L [place] % (Auto) 9.3 Eos % (Auto) 2.7 Baso % (Auto) 0.8 Neut # (Auto) 9.2 H Lymph # (Auto) 1.1 [place] # (Auto) 1.1 H Eos # (Auto) 0.3 Baso # (Auto) 0.1 Neutrophils % (Manual) 80 H Lymphocytes % (Manual) 11 L Monocytes % (Manual) 7 Eosinophils % (Manual) 2 Platelet Estimate Normal Hypochromasia (manual) Slight Microcytosis (manual) Slight PT 12.2 INR 1.1 APTT 30 Sodium 138 Potassium 5.2 Chloride 104 Carbon Dioxide 25 Anion Gap 15 BUN 19 H Creatinine 0.9 Est GFR ( Amer) > 60 Est GFR (Non-Af Amer) > 60 Random Glucose 143 H Calcium 9.2 Phosphorus Magnesium Total Bilirubin 0.7 AST 68 H D ALT 21 Alkaline Phosphatase 68 Total Protein 7.7 Albumin 4.5 Globulin 3.2 Albumin/Globulin Ratio 1.4 Blood Type Antibody Screen 09/17/18 09/18/18 09/18/18 21:09 03:32 09:15 WBC 9.7 RBC 5.26 H Hgb 14.5 Hct 43.9 MCV 83.5 MCH 27.6 MCHC 33.1 RDW 16.6 H Plt Count 439 H MPV 8.0 Neut % (Auto) Lymph % (Auto) [place] % (Auto) Eos % (Auto) Baso % (Auto) Neut # (Auto) Lymph # (Auto) [place] # (Auto) Eos # (Auto) Baso # (Auto) Neutrophils % (Manual) Lymphocytes % (Manual) Monocytes % (Manual) Eosinophils % (Manual) Platelet Estimate Hypochromasia (manual) Microcytosis (manual) PT INR APTT 77 H D Sodium Potassium Chloride Carbon Dioxide Anion Gap BUN Creatinine Est GFR ( Amer) Est GFR (Non-Af Amer) Random Glucose Calcium Phosphorus Magnesium Total Bilirubin AST ALT Alkaline Phosphatase Total Protein Albumin Globulin Albumin/Globulin Ratio Blood Type A POSITIVE Antibody Screen Negative 09/18/18 09/18/18 09:15 09:15 WBC RBC Hgb Hct MCV MCH MCHC RDW Plt Count MPV Neut % (Auto) Lymph % (Auto) [place] % (Auto) Eos % (Auto) Baso % (Auto) Neut # (Auto) Lymph # (Auto) [place] # (Auto) Eos # (Auto) Baso # (Auto) Neutrophils % (Manual) Lymphocytes % (Manual) Monocytes % (Manual) Eosinophils % (Manual) Platelet Estimate Hypochromasia (manual) Microcytosis (manual) PT INR APTT 73 H Sodium 138 Potassium 4.4 Chloride 104 Carbon Dioxide 28 Anion Gap 10 BUN 11 Creatinine 0.7 Est GFR ( Amer) > 60 Est GFR (Non-Af Amer) > 60 Random Glucose 156 H Calcium 9.3 Phosphorus 3.3 Magnesium 1.9 Total Bilirubin 0.5 AST 41 H D ALT 26 Alkaline Phosphatase 78 Total Protein 7.1 Albumin 4.2 Globulin 2.9 Albumin/Globulin Ratio 1.4 Blood Type Antibody Screen
[2018-09-19] MEDS ORDERED: ceFAZolin 1 gm in NS 1 GM/100 ML BAG IVPB ONE ×2 (07:01→12:49)
[2018-09-19] MEDS ORDERED: HEPARIN-NS 5,000 UNITS/500 ML 5,000 UNIT/500 ML BAG IV ONE ×2 (07:01→10:54)
[2018-09-19] MEDS ORDERED: Iodixanol 320 MG/ML 200 ML BOTTLE IV ONE ×2 (07:02→10:54)
[2018-09-19] MEDS ORDERED: Thrombin Topical 20,000 Intl Units Spray Kit TOP ONE (07:02)
[2018-09-19 07:29] LABS: BASO # 0.1 K/uL (0.0-0.2); BASO % 1.2 % (0.0-2.0); EOS # 0.2 K/uL (0.0-0.7); EOS % 2.6 % (0.0-4.0); HEMOGLOBIN 14.4 g/dL (11.0-16.0); LYMPH # 0.9 K/uL (1.0-4.3); LYMPH % 10.1 % (20.0-40.0); MEAN CELL VOLUME 84.1 fL (81.0-99.0); MEAN CORPUSCULAR HEMOGLOBIN 26.9 pg (27.0-31.0); MEAN PLATELET VOLUME 7.9 fL (7.2-11.7); MONO # 0.8 K/uL (0.0-0.8); MONO % 9.4 % (0.0-10.0); NEUT # 6.9 K/uL (1.8-7.0); NEUT % 76.7 % (50.0-75.0); RBC 5.35 Mil/uL (3.80-5.20); RED CELL DISTRIBUTION WIDTH 17.4 % (11.5-14.5)
[2018-09-19 07:31] LABS: INR 1.1; PROTHROMBIN TIME 11.8 SECONDS (9.7-12.2)
[2018-09-19] MEDS ORDERED: Propofol 10 mg/ml Inj (20 ML) ONE (07:55)
[2018-09-19 08:05] LABS: BLOOD UREA NITROGEN 16 mg/dL (7-17); CALCIUM 9.3 mg/dl (8.6-10.4); GFR NON-AFRICAN AMERICAN > 60
[2018-09-19] MEDS ORDERED: Heparin25000 units/250ml 1/2NS 25,000 UNITS/250 ML BAG IV PRN (08:42)
[2018-09-19] MEDS ORDERED: Rocuronium 10 mg/ml (10 ml) ONE (09:51)
[2018-09-19] MEDS ORDERED: HEPARIN-NS 5,000 UNITS/500 ML 10,000 UNIT/1,000 ML BAG IV ONE (12:08)
[2018-09-19] MEDS: Iodixanol 320 MG/ML 200 ML BOTTLE IV ONE ×2 (12:47→17:08)
[2018-09-19] MEDS ORDERED: Lactated Ringer's 1,000 ML IV ONE (13:35)
[2018-09-19] MEDS ORDERED: HYDROmorphone 0.5 mg/0.5 ml ISec IVP PRN ×2 (13:54→14:01)
--- NOTE | 2018-09-19 14:19 | PCM.SURG1 ---
Surgeon's Initial Post Op Note - Surgeon's Notes Surgeon: Dr. Pichardo Abrasive Water Jet Cutter Operator: Estrada PGY2; Beni MS3 Type of Anesthesia: General Endo Anesthesia Administered By: Dr. Casper Pre-Operative Diagnosis: Bilateral Lower Extremity Embolic Occlusive Disease Operative Findings: See operative report. Retained clot left AT. No doppler signals at L DP. Post-Operative Diagnosis: same Operation Performed: Bilateral Transfemoral Embolectomy. Patch closure Right Common Femoral. Balloon Angioplasty Left Anterior Tibial and Left Peroneal. Thrombolysis Left Anterior Tibial and Left Peroneal. Specimen/Specimens Removed: Right leg emboli. Left leg emboli Estimated Blood Loss: EBL {In ML}: 350 Blood Products Given: N/A Drains Used: No Drains Post-Op Condition: Fair Date of Surgery/Procedure: 09/19/18 Time of Surgery/Procedure: 14:00
--- NOTE | 2018-09-19 14:21 | CP.PCM.CON ---
<Chung Teixeira - Last Filed: 09/19/18 16:26> History of Present Illness - History of Present Illness History of Present Illness: PGY-1 ICU consult note for Dr Yvonne Forde reason for consult: s/p b/l femoral embolectomy Patient is a 72 year old female with pmhx of GERD, HTN, HLD, RLE DVT s/p embolectomy 10 years ago, came to ED for increasing pain in left leg, was on c oumadin and Pletal, but was stopped 2-3 weeks ago due to patient diagnosed with a retroperitoneal bleed. 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 Patient was seen by vascular surgeon Dr Pichardo, performed a bilateral transfemoral embolectomy on 09/19, with patch closure right common femoral, balloon angioplasty left anterior tibial and left perioneal thrombolysis, with EBL of 350ml. As per surgery, clots are still present in anterior tibial arteries that will require patient to return to OR on sunday. Patient currently now on heparin drip. Patient complaints of throat pain and leg pain from the surgery. Denies any other complaints, states original left leg pain has improved. denies fevers, chills, chest pain, shortness of breath or abdominal pain. PMhx: as stated in HPI Shx: embolectomy (2008), , hysterectomy, Gluteal debridement from abscess All: NKDA Meds: see MAR FH: Alzheimers, throat cancer (mother) Schx: denies tobacco, ETOH and drug use Past Patient History - Past Medical History & Family History Past Medical History?: Yes - Past Social History Smoking Status: Never Smoked - CARDIAC Hx Hypercholesterolemia: Yes Hx Hypertension: Yes - PULMONARY Hx Pneumonia: Yes - NEUROLOGICAL Hx Alzheimer's Disease: Yes (EARLY) - HEENT Hx HEENT Problems: Yes Hx Cataracts: Yes (JOSH) - RENAL Hx Chronic Kidney Disease: No - ENDOCRINE/METABOLIC Hx Endocrine Disorders: No - HEMATOLOGICAL/ONCOLOGICAL Hx Blood Disorders: No - INTEGUMENTARY Hx Dermatological Problems: No - MUSCULOSKELETAL/RHEUMATOLOGICAL Hx Musculoskeletal Disorders: Yes Hx Degenerative Joint Disease: Yes Hx Falls: No - GASTROINTESTINAL Hx Gastritis: Yes - GENITOURINARY/GYNECOLOGICAL Hx Genitourinary Disorders: No - PSYCHIATRIC Hx Substance Use: No - SURGICAL HISTORY Hx Surgeries: Yes Hx Cataract Extraction: Yes - ANESTHESIA Hx Anesthesia: Yes Hx Anesthesia Reactions: No Hx Malignant Hyperthermia: No Meds Allergies/Adverse Reactions: Allergies Allergy/AdvReac Type Severity Reaction Status Date / Time No Known Allergies Allergy Verified 09/17/18 19:43 - Medications Medications: Current Medications Amlodipine Besylate (Norvasc) 5 mg PO DAILY [facility] Last Admin: 09/18/18 12:06 Dose: 5 mg Folic Acid (Folic Acid) 1 mg PO DAILY [facility] Hydromorphone HCl (Dilaudid) 0.5 mg IVP Q5M PRN PRN Reason: Pain, severe (8-10) Last Admin: 09/19/18 14:05 Dose: 0.5 mg Heparin Sodium/Sodium Chloride (Heparin 29731 Units/250ml 1/2 Normal Saline) 25,000 units in 250 mls @ 11.186 mls/hr IV .[id number] PRN; Protocol PRN Reason: PROTOCOL Losartan Potassium (Cozaar) 25 mg PO DAILY [facility] Last Admin: 09/18/18 12:06 Dose: 25 mg Morphine Sulfate (Morphine) 2 mg IVP Q4 PRN PRN Reason: Pain, severe (8-10) Last Admin: 09/18/18 12:56 Dose: 2 mg Pneumococcal Polyvalent Vaccine (Pneumovax 23 Vaccine) 0.5 ml IM .ONCE ONE Stop: 09/20/18 14:01 Trazodone HCl (Desyrel) 50 mg PO [facility] Last Admin: 09/18/18 21:44 Dose: 50 mg Physical Exam - Constitutional Appears: Non-toxic, No Acute Distress - Head Exam Head Exam: ATRAUMATIC, NORMAL INSPECTION, NORMOCEPHALIC - Eye Exam Eye Exam: EOMI, Normal appearance - ENT Exam ENT Exam: Mucous Membranes Moist, Normal Exam - Neck Exam Neck exam: Positive for: Normal Inspection - Respiratory Exam Respiratory Exam: Clear to Auscultation Bilateral, NORMAL BREATHING PATTERN - Cardiovascular Exam Cardiovascular Exam: REGULAR RHYTHM, +S1, +S2 - GI/Abdominal Exam GI & Abdominal Exam: Normal Bowel Sounds, Soft. absent: Tenderness - Extremities Exam Extremities exam: Negative for: pedal edema Additional comments: left foot cold to palpation subtle DP pulse on left foot, no TP pulse Right foot DP pulse - Back Exam Back exam: NORMAL INSPECTION - Neurological Exam Neurological exam: Alert, Normal Gait, Oriented x3 - Psychiatric Exam Psychiatric exam: Normal Affect, Normal Mood - Skin Skin Exam: Dry, Intact, Normal Color, Warm Results - Vital Signs Recent Vital Signs: Last Vital Signs Temp 97.2 F L 09/19/18 13:35 Pulse 116 H 09/19/18 13:35 Resp 16 09/19/18 13:35 BP 122/69 09/19/18 13:35 Pulse Ox 98 09/19/18 13:35 - Labs Result Diagrams: 09/19/18 07:18 09/19/18 07:18 Labs: Laboratory Results - last 24 hr 09/19/18 09/19/18 09/19/18 07:18 07:18 07:18 WBC 9.0 RBC 5.35 H Hgb 14.4 Hct 44.9 MCV 84.1 MCH 26.9 L MCHC 32.0 L RDW 17.4 H Plt Count 474 H MPV 7.9 Neut % (Auto) 76.7 H Lymph % (Auto) 10.1 L [place] % (Auto) 9.4 Eos % (Auto) 2.6 Baso % (Auto) 1.2 Neut # (Auto) 6.9 Lymph # (Auto) 0.9 L [place] # (Auto) 0.8 Eos # (Auto) 0.2 Baso # (Auto) 0.1 ESR 26 H PT 11.8 INR 1.1 APTT 33 D Sodium 138 Potassium 4.6 Chloride 103 Carbon Dioxide 30 Anion Gap 8 L BUN 16 Creatinine 0.8 Est GFR ( Amer) > 60 Est GFR (Non-Af Amer) > 60 Random Glucose 112 H D Calcium 9.3 C-Reactive Protein 21.20 H Vitamin B12 557 Blood Type Antibody Screen 09/19/18 07:18 WBC RBC Hgb Hct MCV MCH MCHC RDW Plt Count MPV Neut % (Auto) Lymph % (Auto) [place] % (Auto) Eos % (Auto) Baso % (Auto) Neut # (Auto) Lymph # (Auto) [place] # (Auto) Eos # (Auto) Baso # (Auto) ESR PT INR APTT Sodium Potassium Chloride Carbon Dioxide Anion Gap BUN Creatinine Est GFR ( Amer) Est GFR (Non-Af Amer) Random Glucose Calcium C-Reactive Protein Vitamin B12 Blood Type A POSITIVE Antibody Screen Negative Assessment & Plan - Assessment and Plan (Free Text) Plan: Patient is a 72 year old female with pmhx of HTN, GERD, HLD, RLE DVT s/p embolectomy, retroperitoneal bleed admitted to hospital for occlusion of left popliteal artery as showed on CTA, Vasc surgery on case performed B/l femoral embolectomy on 09/17 with patch closure right common fem and ballon angioplasty left ant tibial and left peroneal with thrombolysis left ant tibial and left peroneal, on heparin drip transferred to ICU for further management, possible going to OR for further vasc surgery on saturday 09/23 Neuro AAOx3 no acute issues Cardio repeat labs tonight am labs On heparin drip - DVT protocol Hx of HTN - continue amlodipine and coozar fluids for washing IV contrast A line placed Pulm O2 via nasal canula GI Heart healthy diet Endo hx of retroperitoneal hematoma - right adrenal gland CTA - subacute right adrenal hemorrhage continue to monitor Nephro continue LR @ 75 cc/hr continue fluids for washing IV contrast on randolph - monitor I/O - goal 30-40 cc/hr Ext Left popliteal occlusion on CTA s/p bl l femoral embolectomy/thrombectomy 09/19 Heparin drip continue fluids repeat pm labs and am labs tomorrow Kylee - vasc surgery PPx DVT :heparin GI: not indicated Morphine 2mg IVP Q4 PRN Percocet 1 tab PO Q6 PRN, Dilaudid .5 mg PRN Dispo: will follow with Dr Pichardo's team on cont surgical intervention and management. Plan discussed with Dr Maurisio Teixeira, PGY-1 - Date & Time Date: 09/19/18 Time: 15:55 <Del Forde - Last Filed: 09/19/18 18:03> Meds - Medications Medications: Current Medications Amlodipine Besylate (Norvasc) 5 mg PO DAILY [facility] Last Admin: 09/18/18 12:06 Dose: 5 mg Folic Acid (Folic Acid) 1 mg PO DAILY [facility] Hydromorphone HCl (Dilaudid) 0.5 mg IVP Q5M PRN PRN Reason: Pain, severe (8-10) Last Admin: 09/19/18 14:05 Dose: 0.5 mg Heparin Sodium/Sodium Chloride (Heparin 27457 Units/250ml 1/2 Normal Saline) 25,000 units in 250 mls @ 11.186 mls/hr IV .[id number] PRN; Protocol PRN Reason: PROTOCOL Last Admin: 09/19/18 17:05 Dose: 18 units/kg/hr, 11.186 mls/hr Lactated Ringer's (Lactated Ringer's) 1,000 mls @ 75 mls/hr IV .[id number] [facility] Last Admin: 09/19/18 17:00 Dose: 75 mls/hr Losartan Potassium (Cozaar) 25 mg PO DAILY [facility] Last Admin: 09/18/18 12:06 Dose: 25 mg Morphine Sulfate (Morphine) 2 mg IVP Q4 PRN PRN Reason: Pain, severe (8-10) Last Admin: 09/18/18 12:56 Dose: 2 mg Oxycodone/Acetaminophen (Percocet 5/325 Mg Tab) 1 tab PO Q6H PRN PRN Reason: Pain, moderate (4-7) Stop: 09/22/18 14:40 Pneumococcal Polyvalent Vaccine (Pneumovax 23 Vaccine) 0.5 ml IM .ONCE ONE Stop: 09/20/18 14:01 Trazodone HCl (Desyrel) 50 mg PO HS [facility] Last Admin: 09/18/18 21:44 Dose: 50 mg Results - Vital Signs Recent Vital Signs: Last Vital Signs Temp 97.7 F 09/19/18 15:26 Pulse 79 09/19/18 15:50 Resp 10 L 09/19/18 15:50 BP 134/58 L 09/19/18 15:19 Pulse Ox 100 09/19/18 15:50 - Labs Result Diagrams: 09/19/18 07:18 09/19/18 07:18 Labs: Laboratory Results - last 24 hr 09/19/18 09/19/18 09/19/18 07:18 07:18 07:18 WBC 9.0 RBC 5.35 H Hgb 14.4 Hct 44.9 MCV 84.1 MCH 26.9 L MCHC 32.0 L RDW 17.4 H Plt Count 474 H MPV 7.9 Neut % (Auto) 76.7 H Lymph % (Auto) 10.1 L [place] % (Auto) 9.4 Eos % (Auto) 2.6 Baso % (Auto) 1.2 Neut # (Auto) 6.9 Lymph # (Auto) 0.9 L [place] # (Auto) 0.8 Eos # (Auto) 0.2 Baso # (Auto) 0.1 ESR 26 H PT 11.8 INR 1.1 APTT 33 D Sodium 138 Potassium 4.6 Chloride 103 Carbon Dioxide 30 Anion Gap 8 L BUN 16 Creatinine 0.8 Est GFR ( Amer) > 60 Est GFR (Non-Af Amer) > 60 Random Glucose 112 H D Calcium 9.3 C-Reactive Protein 21.20 H Vitamin B12 557 Blood Type Antibody Screen 09/19/18 07:18 WBC RBC Hgb Hct MCV MCH MCHC RDW Plt Count MPV Neut % (Auto) Lymph % (Auto) [place] % (Auto) Eos % (Auto) Baso % (Auto) Neut # (Auto) Lymph # (Auto) [place] # (Auto) Eos # (Auto) Baso # (Auto) ESR PT INR APTT Sodium Potassium Chloride Carbon Dioxide Anion Gap BUN Creatinine Est GFR ( Amer) Est GFR (Non-Af Amer) Random Glucose Calcium C-Reactive Protein Vitamin B12 Blood Type A POSITIVE Antibody Screen Negative Attending/Attestation - Attestation I have personally seen and examined this patient.: Yes I have fully participated in the care of the patient.: Yes I have reviewed all pertinent clinical information: Yes Notes (Text): 09/19/18 18:02 I have seen and examined the patient. Medical records, lab studies, and imaging were reviewed by me and a management plan was formulated on multidisciplinary rounds with resident Dr. Teixeira. I agree with their documented assessment and plan. Patient to be monitored s/p thrombectomy. Thrombectomy not complete and patient may need to go back to the OR for LE arterial bypass. Continued on heparin gtt. Monitor in ICU for any post-op bleeding complications. Critical Care Time 35 minutes. Multi-disciplinary rounds were performed with house staff, nursing, speech therapy, respiratory therapy, pharmacy and nutrition with integrated input from the primary team/attending and other consulting services. The documented time is cumulative and includes review of patient data/exams/labs/chart review and examination of the patient on rounds and throughout the day; time is exclusive of any procedures or teaching time.
[2018-09-19] MEDS: Lactated Ringer's 1,000 ML IV SCH (17:00)
[2018-09-19] MEDS: Heparin25000 units/250ml 1/2NS 25,000 UNITS/250 ML BAG IV PRN (17:05)
--- NOTE | 2018-09-19 18:30 | RAD ---
Date of service: 09/19/2018 PROCEDURE: Intraoperative Fluoroscopy. HISTORY: PVD FINDINGS: Fluoroscopic assistance was provided for roadmap, peripheral vascular disease.. Please refer to the operative report from ESTEVAN Serrano. Total fluoroscopic time (continuous mode) utilized during the procedure 1170.4 seconds. Total exam DLP: 53.94 (mGy).
[2018-09-19 21:06] LABS: ALBUMIN 2.1 g/dL (3.5-5.0); ALT/SGPT 20 U/L (9-52); AST/SGOT 18 U/L (14-36); BLOOD UREA NITROGEN 10 mg/dL (7-17); CALCIUM 6.2 mg/dl (8.6-10.4); GFR NON-AFRICAN AMERICAN > 60
[2018-09-19 21:13] LABS: BASO # 0.1 K/uL (0.0-0.2); BASO % 0.5 % (0.0-2.0); EOS # 0.1 K/uL (0.0-0.7); EOS % 0.5 % (0.0-4.0); LYMPH # 0.6 K/uL (1.0-4.3); LYMPH % 4.5 % (20.0-40.0); MEAN CELL VOLUME 83.7 fL (81.0-99.0); MEAN CORPUSCULAR HEMOGLOBIN 27.3 pg (27.0-31.0); MEAN CORPUSCULAR HGB CONC 32.6 g/dL (33.0-37.0); MEAN PLATELET VOLUME 7.9 fL (7.2-11.7); MONO # 0.9 K/uL (0.0-0.8); MONO % 7.2 % (0.0-10.0); NEUT # 11.2 K/uL (1.8-7.0); NEUT % 87.3 % (50.0-75.0); PLATELET COUNT 478 K/uL (130-400); RBC 4.11 Mil/uL (3.80-5.20); RED CELL DISTRIBUTION WIDTH 17.3 % (11.5-14.5); WHITE BLOOD COUNT 12.8 K/uL (4.8-10.8)
[2018-09-19 21:16] LABS: CK-MB 0.57 ng/mL (0.0-3.38)
[2018-09-19 21:17] LABS: HEMOGLOBIN 11.2 g/dL (11.0-16.0)
[2018-09-19 22:03] LABS: BANDS 1 % (0-2); HYPOCHROMIC SLIGHT; LARGE PLATELETS PRESENT; LYMPHOCYTE 2 % (20-40); MICROCYTOSIS SLIGHT; MONOCYTE 10 % (0-10); NEUTROPHIL 87 % (50-75); OVALOCYTES SLIGHT; PLATELET ESTIMATE NORMAL (NORMAL); TOTAL CELLS COUNTED 100
[2018-09-19] MEDS: Morphine 4 MG/ML VIAL IVP PRN (22:30)
[2018-09-19 23:35] LABS: INR 1.2; PROTHROMBIN TIME 13.5 SECONDS (9.7-12.2)
--- NOTE | 2018-09-20 02:06 | OP ---
PROCEDURE DATE: 09/19/2018 PREOPERATIVE DIAGNOSIS: Left popliteal thrombosis and right profundus thrombosis. SURGEON: Zak Pichardo Jr., MD [employer] INSTRUCTOR: Kian Dorado DO ANESTHESIOLOGIST: Israel Casper MD ANESTHESIA: General anesthesia. INDICATIONS: A 72-year-old woman who approximately 10 years ago presented with arterial and venous thrombosis to the right leg. At that time, she underwent sympathectomy in [place] and subsequently underwent a right common and external iliac thrombectomy and hinduism of the flow into the right leg. Since that time, she has been maintained on Coumadin and has done relatively well. Recently, she was admitted to hospital with severe anemia and back pain. At that time, she was found to have retroperitoneal bleed on the right side, on Coumadin. The INR was not particularly elevated. Coumadin was then suspended. She was subsequently discharged to home. She came back again complaining of pain in both legs. CT angiography demonstrated the patient had popliteal thrombosis on the left side as well as right SFA occlusion. Tibial vessels available below this and clots throughout her profundus system. The patient was admitted, started on heparin. Appropriate consultation is required. OPERATION CARRIED OUT: Bilateral transfemoral embolectomy, multiple intraoperative arteriograms, patch angioplasty to right common femoral artery, and then thrombolysis of left popliteal artery and tibial vessels using a Morenita catheter, also used Penumbra Catheter System to try to extract residual clot and subsequently balloon angioplasty of the anterior tibial and perineal artery. ESTIMATED BLOOD LOSS OF THIS PROCEDURE: About 400 mL. DESCRIPTION OF PROCEDURE: The patient was given general anesthesia and intravenous antibiotics. Both legs were entirely prepped from the lower abdomen down to the legs. Both groins were dissected out. The right side was far more difficult because of the previous surgery in this area, but the common femoral profunda and superficial femoral arteries were all controlled. Heparin was given. The left side was explored first. We were able to extract initially great deal of clot and pass the catheter all way down into the perineum. However at this point, we were unable to extract all the clots. Completion of angiogram showed that despite removing great deal of clots there was residual clot present. We then placed a Morenita catheter and instilled tPA approximately 6 mg into this area with improvement in removal of residual clot. We then used an [id number] balloon embolectomy assistance to extract clot from the distal popliteal artery. This resulted in no flow into the anterior tibial, perineal, or posterior tibial. The posterior tibial in particular was seen distally. We then with a variety of wires and devices including the use of a Penumbra suction system and instillation of tPA, we were unable to extract this. We then used a 2-mm balloon and attempted to do angioplasty, clots that we cannot remove, may be atherosclerotic debris. This was unsuccessful. Throughout at the end, we had restored the flow down through the popliteal artery into the trifurcation, but none of the main vessels were identified at the trifurcation on completion films. We tried different maneuvers again including use of [id number] embolectomy catheters, traditional Telly catheters, Morenita catheter to instill tPA and these balloon angioplasties were unsuccessful and . We then closed the groin without the use of patch and went to the other side. In the right side, we had removed a great deal of clot from the profunda femoris artery but this was in segment, some areas removed fair amount but there was good retrieval of clot from the right side. We also removed some clot from right superficial femoral artery. This appeared to be old. We then closed the patch on the right side. This was an area of previous scarring. We then terminated the procedure. Numerous intraoperative arteriograms were taken showing various degrees of removable clot, very successful placement of catheters and variety of other devices. However, the final completion films still showed a direct flow into the anterior tibial which is not successful. The proximal portion of the peroneal and distally only showed the PT as a significant vessel. We then terminated the procedure, closed the groins. OPERATION CARRIED OUT: Bilateral femoral embolectomy, patch angioplasty of right common femoral artery, tPA infusion using Morenita catheter in the left popliteal artery with angioplasty of the anterior tibial, posterior tibial, and perineal arteries. Zak Pichardo Jr., MD [facility]
[2018-09-20] MEDS: Lactated Ringer's 1,000 ML IV SCH ×2 (06:15→21:28)
[2018-09-20 06:31] LABS: BASO # 0.1 K/uL (0.0-0.2); BASO % 0.5 % (0.0-2.0); EOS # 0.1 K/uL (0.0-0.7); EOS % 1.1 % (0.0-4.0); HEMOGLOBIN 10.2 g/dL (11.0-16.0); LYMPH % 8.4 % (20.0-40.0); MEAN CELL VOLUME 84.1 fL (81.0-99.0); MEAN CORPUSCULAR HEMOGLOBIN 27.5 pg (27.0-31.0); MEAN CORPUSCULAR HGB CONC 32.7 g/dL (33.0-37.0); MEAN PLATELET VOLUME 8.9 fL (7.2-11.7); MONO % 8.7 % (0.0-10.0); NEUT # 9.8 K/uL (1.8-7.0); NEUT % 81.3 % (50.0-75.0); PLATELET COUNT 475 K/uL (130-400); RBC 3.72 Mil/uL (3.80-5.20); RED CELL DISTRIBUTION WIDTH 17.2 % (11.5-14.5); WHITE BLOOD COUNT 12.1 K/uL (4.8-10.8)
[2018-09-20 06:54] LABS: ALB/GLOB RATIO 1.2 (1.0-2.1); ALBUMIN 2.7 g/dL (3.5-5.0); ALT/SGPT 22 U/L (9-52); AST/SGOT 29 U/L (14-36); BLOOD UREA NITROGEN 12 mg/dL (7-17); CALCIUM 8.2 mg/dl (8.6-10.4); GFR NON-AFRICAN AMERICAN > 60
[2018-09-20 08:37] LABS: ANISOCYTOSIS SLIGHT; EOSINOPHIL 1 % (0-4); LYMPHOCYTE 5 % (20-40); MONOCYTE 8 % (0-10); NEUTROPHIL 86 % (50-75); PLATELET ESTIMATE SLIGHTLY INCREASED (NORMAL); TOTAL CELLS COUNTED 100
--- NOTE | 2018-09-20 09:40 | CP.PCM.PN ---
Subjective - Date & Time of Evaluation Date of Evaluation: 09/20/18 Time of Evaluation: 07:00 - Subjective Subjective: VASCULAR SURGERY PROGRESS NOTE FOR DR. VALENZUELA Pt seen and examined at bedside in ICU. Reports pain in her legs. Remains on heparin drip. Objective - Vital Signs/Intake and Output Vital Signs (last 24 hours): Temp Pulse Resp BP Pulse Ox 98.6 F 78 16 128/55 L 99 09/20/18 08:00 09/20/18 08:19 09/20/18 08:19 09/20/18 08:19 09/20/18 08:19 Intake and Output: 09/20/18 09/20/18 06:59 18:59 Intake Total 1134.4 172.4 Output Total 390 135 Balance 744.4 37.4 - Medications Medications: Current Medications Amlodipine Besylate (Norvasc) 5 mg PO DAILY [facility] Last Admin: 09/19/18 18:37 Dose: 5 mg Folic Acid (Folic Acid) 1 mg PO DAILY [facility] Last Admin: 09/20/18 09:25 Dose: 1 mg Hydromorphone HCl (Dilaudid) 0.5 mg IVP Q5M PRN PRN Reason: Pain, severe (8-10) Last Admin: 09/19/18 14:05 Dose: 0.5 mg Heparin Sodium/Sodium Chloride (Heparin 14602 Units/250ml 1/2 Normal Saline) 25,000 units in 250 mls @ 11.186 mls/hr IV .[id number] PRN; Protocol PRN Reason: PROTOCOL Last Admin: 09/19/18 17:05 Dose: 18 units/kg/hr, 11.186 mls/hr Lactated Ringer's (Lactated Ringer's) 1,000 mls @ 75 mls/hr IV .[id number] [facility] Last Admin: 09/20/18 06:15 Dose: 75 mls/hr Losartan Potassium (Cozaar) 25 mg PO DAILY [facility] Last Admin: 09/19/18 18:37 Dose: 25 mg Morphine Sulfate (Morphine) 2 mg IVP Q4 PRN PRN Reason: Pain, severe (8-10) Last Admin: 09/19/18 22:30 Dose: 2 mg Oxycodone/Acetaminophen (Percocet 5/325 Mg Tab) 1 tab PO Q6H PRN PRN Reason: Pain, moderate (4-7) Stop: 09/22/18 14:40 Pneumococcal Polyvalent Vaccine (Pneumovax 23 Vaccine) 0.5 ml IM .ONCE ONE Stop: 09/20/18 14:01 Trazodone HCl (Desyrel) 50 mg PO HS [facility] Last Admin: 09/19/18 21:35 Dose: 50 mg - Labs Labs: 09/20/18 06:26 09/20/18 06:24 PT 13.5 SECONDS (9.7-12.2) H 09/19/18 23:23 INR 1.2 09/19/18 23:23 APTT 73 SECONDS (21-34) H 09/20/18 06:26 - Constitutional Appears: Non-toxic, No Acute Distress - Respiratory Exam Respiratory Exam: NORMAL BREATHING PATTERN. absent: Respiratory Distress - Cardiovascular Exam Cardiovascular Exam: +S1, +S2 - GI/Abdominal Exam GI & Abdominal Exam: Distended, Soft. absent: Tenderness - Extremities Exam Additional comments: Bilateral groin pressure dressings clean/dry/intact Doppler signals to bilateral DP & PT Bilateral feet warm - Neurological Exam Neurological Exam: Alert, Awake, Oriented x3 - Psychiatric Exam Psychiatric exam: Normal Affect, Normal Mood - Skin Skin Exam: Dry, Warm Assessment and Plan - Assessment and Plan (Free Text) Assessment: 72yo F with bilateral lower extremity embolic occlusive disease now s/p alexei ateral transfemoral embolectomy w/ balloon angioplasty left anterior tibial and left peroneal. Thrombolysis left anterior tibial and left peroneal,POD#1 - Dopper signals to bilateral DP & PT - No need for bypass - Continue heparin drip - Discussed plan with Dr. Kylee Carcamo PGY-4
[2018-09-20] MEDS: Oxycodone/Acetaminophen 5/325 mg Tab PO PRN ×2 (10:27→17:25)
--- NOTE | 2018-09-20 12:32 | CP.PCM.CON ---
History of Present Illness - History of Present Illness History of Present Illness: Patient is a 72 yo female known to me previously due to GERD with esophagitis, Gastritis S/P EGD 2017. I am asked to evaluate due to pancreatic ductal dilatation showing on arteriography and possible pancreas divisum. No pancreatic findings on CT Scan performed earlier. Patient has h/o HTN, HLD, RLE DVT s/p embolectomy 10 years ago, came to ED for increasing pain in left leg, was on coumadin and Pletal, but was stopped 2-3 weeks ago due to patient diagnosed with a retroperitoneal bleed. 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 Patient was seen by vascular surgeon Dr Pichardo, performed a bilateral transfemoral embolectomy on 09/19, with patch closure right common femoral, balloon angioplasty left anterior tibial and left perioneal thrombolysis, with EBL of 350ml. As per surgery, clots are still present in anterior tibial arteries that will require patient to return to OR on sunday. Patient currently now on heparin drip. Patient complaints of throat pain and leg pain from the surgery. Denies any other complaints, states original left leg pain has improved. denies fevers, chills, chest pain, shortness of breath or abdominal pain. Patient denies abdominal pain or other GI complaints. Has not been seen in my office in one year. Had last been given Protonix and Carafate for complaints of epigastric pain, heartburn and bloating. Review of Systems - Cardiovascular Cardiovascular: absent: Chest Pain, Dyspnea - Respiratory Respiratory: absent: Cough, Snoring - Gastrointestinal Gastrointestinal: As Per HPI. absent: Abdominal Pain, Melena, Nausea, Vomiting Past Patient History - Past Medical History & Family History Past Medical History?: Yes - Past Social History Smoking Status: Never Smoked - CARDIAC Hx Hypercholesterolemia: Yes Hx Hypertension: Yes - PULMONARY Hx Pneumonia: Yes - NEUROLOGICAL Hx Alzheimer's Disease: Yes (EARLY) - HEENT Hx HEENT Problems: Yes Hx Cataracts: Yes (JOSH) - RENAL Hx Chronic Kidney Disease: No - ENDOCRINE/METABOLIC Hx Endocrine Disorders: No - HEMATOLOGICAL/ONCOLOGICAL Hx Blood Disorders: No - INTEGUMENTARY Hx Dermatological Problems: No - MUSCULOSKELETAL/RHEUMATOLOGICAL Hx Musculoskeletal Disorders: Yes Hx Degenerative Joint Disease: Yes Hx Falls: No - GASTROINTESTINAL Hx Gastrointestinal Disorders: Yes Hx Bowel Surgery: No Hx Clostridium Difficile: No Hx Colitis: No Hx Colostomy: No Hx Constipation: No Hx Crohn's Disease: No Hx Diarrhea: No Hx Diverticulitis: No Hx Esophageal Varices: No Hx Fatty Liver Disease: No Hx Gall Bladder Disease: No Hx Gastritis: Yes Hx Gastroesophageal Reflux: Yes Hx Hemorrhoids: Yes Hx Ileostomy: No Hx Irritable Bowel: No Hx Liver Failure: No Hx Nausea: No Hx Pancreatitis: No HX Swallowing Problems: No Hx Ulcer: No Hx Vomiting: No - GENITOURINARY/GYNECOLOGICAL Hx Genitourinary Disorders: No - PSYCHIATRIC Hx Substance Use: No - SURGICAL HISTORY Hx Surgeries: Yes Hx Cataract Extraction: Yes - ANESTHESIA Hx Anesthesia: Yes Hx Anesthesia Reactions: No Hx Malignant Hyperthermia: No Meds Allergies/Adverse Reactions: Allergies Allergy/AdvReac Type Severity Reaction Status Date / Time No Known Allergies Allergy Verified 09/17/18 19:43 - Medications Medications: Current Medications Amlodipine Besylate (Norvasc) 5 mg PO DAILY [facility] Last Admin: 09/20/18 10:00 Dose: Not Given Folic Acid (Folic Acid) 1 mg PO DAILY [facility] Last Admin: 09/20/18 09:25 Dose: 1 mg Hydromorphone HCl (Dilaudid) 0.5 mg IVP Q5M PRN PRN Reason: Pain, severe (8-10) Last Admin: 09/19/18 14:05 Dose: 0.5 mg Heparin Sodium/Sodium Chloride (Heparin 02856 Units/250ml 1/2 Normal Saline) 25,000 units in 250 mls @ 11.186 mls/hr IV .[id number] PRN; Protocol PRN Reason: PROTOCOL Last Admin: 09/19/18 17:05 Dose: 18 units/kg/hr, 11.186 mls/hr Lactated Ringer's (Lactated Ringer's) 1,000 mls @ 75 mls/hr IV .[id number] [facility] Last Admin: 09/20/18 06:15 Dose: 75 mls/hr Losartan Potassium (Cozaar) 25 mg PO DAILY [facility] Last Admin: 09/20/18 10:00 Dose: Not Given Morphine Sulfate (Morphine) 2 mg IVP Q4 PRN PRN Reason: Pain, severe (8-10) Last Admin: 09/19/18 22:30 Dose: 2 mg Oxycodone/Acetaminophen (Percocet 5/325 Mg Tab) 1 tab PO Q6H PRN PRN Reason: Pain, moderate (4-7) Stop: 09/22/18 14:40 Last Admin: 09/20/18 10:27 Dose: 1 tab Pneumococcal Polyvalent Vaccine (Pneumovax 23 Vaccine) 0.5 ml IM .ONCE ONE Stop: 09/20/18 14:01 Trazodone HCl (Desyrel) 50 mg PO HS [facility] Last Admin: 09/19/18 21:35 Dose: 50 mg Physical Exam - Constitutional Appears: No Acute Distress - Head Exam Head Exam: ATRAUMATIC, NORMOCEPHALIC - Eye Exam Eye Exam: EOMI, PERRL - Respiratory Exam Respiratory Exam: NORMAL BREATHING PATTERN - Cardiovascular Exam Cardiovascular Exam: REGULAR RHYTHM, +S1 - GI/Abdominal Exam GI & Abdominal Exam: Normal Bowel Sounds, Soft. absent: Mass, Rigid, Tenderness - Rectal Exam Rectal Exam: Deferred Results - Vital Signs Recent Vital Signs: Last Vital Signs Temp 98.9 F 09/20/18 12:00 Pulse 82 09/20/18 12:00 Resp 17 09/20/18 12:00 BP 122/54 L 09/20/18 11:47 Pulse Ox 99 09/20/18 12:00 - Labs Result Diagrams: 09/20/18 06:26 09/20/18 06:24 Labs: Laboratory Results - last 24 hr 09/19/18 09/19/18 09/19/18 20:47 21:10 23:23 WBC 12.8 H RBC 4.11 Hgb 11.2 D Hct 34.3 MCV 83.7 MCH 27.3 MCHC 32.6 L RDW 17.3 H Plt Count 478 H MPV 7.9 Neut % (Auto) 87.3 H Lymph % (Auto) 4.5 L [place] % (Auto) 7.2 Eos % (Auto) 0.5 Baso % (Auto) 0.5 Neut # (Auto) 11.2 H Lymph # (Auto) 0.6 L [place] # (Auto) 0.9 H Eos # (Auto) 0.1 Baso # (Auto) 0.1 Neutrophils % (Manual) 87 H Band Neutrophils % 1 Lymphocytes % (Manual) 2 L Monocytes % (Manual) 10 Eosinophils % (Manual) Platelet Estimate Normal Large Platelets Present Hypochromasia (manual) Slight Anisocytosis (manual) Microcytosis (manual) Slight Ovalocytes Slight PT 13.5 H INR 1.2 APTT 77 H D Sodium 138 Potassium 3.6 Chloride 114 H Carbon Dioxide 22 Anion Gap 6 L BUN 10 Creatinine 0.5 L Est GFR ( Amer) > 60 Est GFR (Non-Af Amer) > 60 Random Glucose 132 H Calcium 6.2 L Phosphorus 2.7 Magnesium 1.6 Total Bilirubin 0.3 AST 18 ALT 20 Alkaline Phosphatase 45 Total Creatine Kinase 110 CK-MB (Mass) 0.57 Troponin I < 0.0120 Total Protein 4.1 L Albumin 2.1 L D Globulin 2.1 L Albumin/Globulin Ratio 1.0 09/20/18 09/20/18 09/20/18 06:24 06:26 06:26 WBC 12.1 H RBC 3.72 L Hgb 10.2 L Hct 31.3 L MCV 84.1 MCH 27.5 MCHC 32.7 L RDW 17.2 H Plt Count 475 H MPV 8.9 Neut % (Auto) 81.3 H Lymph % (Auto) 8.4 L [place] % (Auto) 8.7 Eos % (Auto) 1.1 Baso % (Auto) 0.5 Neut # (Auto) 9.8 H Lymph # (Auto) 1.0 [place] # (Auto) 1.0 H Eos # (Auto) 0.1 Baso # (Auto) 0.1 Neutrophils % (Manual) 86 H Band Neutrophils % Lymphocytes % (Manual) 5 L Monocytes % (Manual) 8 Eosinophils % (Manual) 1 Platelet Estimate Slightly increased H Large Platelets Hypochromasia (manual) Anisocytosis (manual) Slight Microcytosis (manual) Ovalocytes PT INR APTT 73 H Sodium 132 Potassium 4.4 Chloride 100 Carbon Dioxide 28 Anion Gap 8 L BUN 12 Creatinine 0.7 Est GFR ( Amer) > 60 Est GFR (Non-Af Amer) > 60 Random Glucose 159 H D Calcium 8.2 L Phosphorus 3.2 Magnesium 2.1 Total Bilirubin 0.3 AST 29 ALT 22 Alkaline Phosphatase 49 Total Creatine Kinase CK-MB (Mass) Troponin I Total Protein 5.1 L Albumin 2.7 L D Globulin 2.3 Albumin/Globulin Ratio 1.2 - Imaging and Cardiology CT scan - abdomen Status: Image reviewed by me, Report reviewed by me Assessment & Plan (1) Reflux esophagitis Assessment and Plan: Continue Protonix Iv/po and observe Status: Acute (2) Dilated pancreatic duct Assessment and Plan: In absence of mass or pathology on CT and no enzyme abnormalities this may be a normal variant, Pancreas Divisum. Can obtain MRCP to better identify ductal anatomy and r/o PD or referral can be made for EUS when patients current medical problems have been resolved. No acute pathology suspected at this time. Will follow as needed. Status: Acute
--- NOTE | 2018-09-20 12:56 | CP.CCUPN ---
<Chung Teixeira - Last Filed: 09/20/18 16:04> CCU Subjective - Physician Review Subjective (Free Text): PGY-1 ICU consult note for Dr Yvonne Forde Patient is seen and examined at bedside. no acute events overnight. Patient states feeling better today. Admits to pain in her left arm/hand from IV line site, reports no pain in her legs. denies any other complaints at this time. Critical Care Time Spent (in minutes): 40 CCU Objective - Vital Signs / Intake & Output Vital Signs (Last 4 hours): Vital Signs Temp Pulse Resp BP BP Pulse Ox 09/20/18 12:00 98.9 F 82 17 99 09/20/18 11:47 80 19 122/54 L 100 09/20/18 11:18 82 15 121/58 L 98 09/20/18 11:00 83 14 100 09/20/18 10:18 77 16 107/42 L 100 09/20/18 10:00 90 16 100/55 L 99 09/20/18 09:19 80 16 125/49 L 100 09/20/18 09:00 91 H 19 100 Intake and Output (Last 8hrs): Intake & Output 09/19/18 09/20/18 09/20/18 22:59 06:59 14:59 Intake Total 897.2 689.6 757.2 Output Total 515 255 335 Balance 382.2 434.6 422.2 Weight 137 lb Intake: Intake, IV Amount 517.2 689.6 517.2 Left Forearm 375 Left Hand 450 600 75 Right Hand 67.2 89.6 11.2 Right Wrist 56.0 Oral 380 240 Output: Urine 515 255 335 Urethral (Randolph) 365 255 335 Stool 0 0 - Physical Exam Head: Positive for: Atraumatic, Normocephalic Pupils: Positive for: PERRL Extroacular Muscles: Positive for: EOMI Conjunctiva: Positive for: Normal Mouth: Positive for: Moist Mucous Membranes Neck: Positive for: Normal Range of Motion Respiratory/Chest: Positive for: Clear to Auscultation Cardiovascular: Positive for: Regular Rate and Rhythm, Normal S1, S2 Abdomen: Positive for: Normal Bowel Sounds Upper Extremity: Positive for: Normal Inspection. Negative for: Edema Lower Extremity: Positive for: Normal Inspection. Negative for: Edema Neurological: Positive for: CN II-XII Intact Skin: Positive for: Warm, Normal Color Psychiatric: Positive for: Alert, Oriented x 3, Normal Insight, Normal Concentration - Medications Active Medications: Active Medications Generic Name Dose Route Start Last Admin Trade Name Freq PRN Reason Stop Dose Admin Amlodipine Besylate 5 mg 09/18/18 10:00 09/20/18 10:00 Norvasc PO Not Given DAILY VIVIAN Folic Acid 1 mg 09/19/18 10:00 09/20/18 09:25 Folic Acid PO 1 mg DAILY VIVIAN Administration Hydromorphone HCl 0.5 mg 09/19/18 14:01 09/19/18 14:05 Dilaudid IVP 0.5 mg Q5M PRN Administration Pain, severe (8-10) Heparin Sodium/Sodium Chloride 25,000 units in 250 mls @ 11.186 mls/hr 09/19/18 08:45 09/19/18 17:05 Heparin 79410 Units/250ml 1/2 Normal Saline IV 18 units/kg/hr .[id number] PRN 11.186 mls/hr PROTOCOL Administration Protocol 18 UNITS/KG/HR Lactated Ringer's 1,000 mls @ 75 mls/hr 09/19/18 16:45 09/20/18 06:15 Lactated Ringer's IV 75 mls/hr .[id number] VIVIAN Administration Losartan Potassium 25 mg 09/18/18 10:00 09/20/18 10:00 Cozaar PO Not Given DAILY [facility] Morphine Sulfate 2 mg 09/18/18 12:31 09/19/18 22:30 Morphine IVP 2 mg Q4 PRN Administration Pain, severe (8-10) Oxycodone/Acetaminophen 1 tab 09/19/18 14:39 09/20/18 10:27 Percocet 5/325 Mg Tab PO 09/22/18 14:40 1 tab Q6H PRN Administration Pain, moderate (4-7) Pneumococcal Polyvalent Vaccine 0.5 ml 09/20/18 14:00 Pneumovax 23 Vaccine IM 09/20/18 14:01 .ONCE ONE Trazodone HCl 50 mg 09/18/18 22:00 09/19/18 21:35 Desyrel PO 50 mg HS VIVIAN Administration - Patient Studies Lab Studies: Lab Studies 09/20/18 09/20/18 09/20/18 Range/Units 06:26 06:26 06:24 WBC 12.1 H (4.8-10.8) K/uL RBC 3.72 L (3.80-5.20) Mil/uL Hgb 10.2 L (11.0-16.0) g/dL Hct 31.3 L (34.0-47.0) % MCV 84.1 (81.0-99.0) fL MCH 27.5 (27.0-31.0) pg MCHC 32.7 L (33.0-37.0) g/dL RDW 17.2 H (11.5-14.5) % Plt Count 475 H (130-400) K/uL MPV 8.9 (7.2-11.7) fL Neut % (Auto) 81.3 H (50.0-75.0) % Lymph % (Auto) 8.4 L (20.0-40.0) % [place] % (Auto) 8.7 (0.0-10.0) % Eos % (Auto) 1.1 (0.0-4.0) % Baso % (Auto) 0.5 (0.0-2.0) % Neut # (Auto) 9.8 H (1.8-7.0) K/uL Lymph # (Auto) 1.0 (1.0-4.3) K/uL [place] # (Auto) 1.0 H (0.0-0.8) K/uL Eos # (Auto) 0.1 (0.0-0.7) K/uL Baso # (Auto) 0.1 (0.0-0.2) K/uL Neutrophils % (Manual) 86 H (50-75) % Band Neutrophils % (0-2) % Lymphocytes % (Manual) 5 L (20-40) % Monocytes % (Manual) 8 (0-10) % Eosinophils % (Manual) 1 (0-4) % Platelet Estimate Slightly increased H (NORMAL) Large Platelets Hypochromasia (manual) Anisocytosis (manual) Slight Microcytosis (manual) Ovalocytes PT (9.7-12.2) SECONDS INR APTT 73 H (21-34) SECONDS Sodium 132 (132-148) mmol/L Potassium 4.4 (3.6-5.2) mmol/L Chloride 100 (98-107) mmol/L Carbon Dioxide 28 (22-30) mmol/L Anion Gap 8 L (10-20) BUN 12 (7-17) mg/dL Creatinine 0.7 (0.7-1.2) mg/dL Est GFR ( Amer) > 60 Est GFR (Non-Af Amer) > 60 Random Glucose 159 H D (65-105) mg/dL Calcium 8.2 L (8.6-10.4) mg/dl Phosphorus 3.2 (2.5-4.5) mg/dL Magnesium 2.1 (1.6-2.3) mg/dL Total Bilirubin 0.3 (0.2-1.3) mg/dL AST 29 (14-36) U/L ALT 22 (9-52) U/L Alkaline Phosphatase 49 (38-126) U/L Total Creatine Kinase (30-135) U/L CK-MB (Mass) (0.0-3.38) ng/mL Troponin I (0.00-0.120) ng/mL Total Protein 5.1 L (6.3-8.3) g/dL Albumin 2.7 L D (3.5-5.0) g/dL Globulin 2.3 (2.2-3.9) gm/dL Albumin/Globulin Ratio 1.2 (1.0-2.1) 09/19/18 09/19/18 09/19/18 Range/Units 23:23 21:10 20:47 WBC 12.8 H (4.8-10.8) K/uL RBC 4.11 (3.80-5.20) Mil/uL Hgb 11.2 D (11.0-16.0) g/dL Hct 34.3 (34.0-47.0) % MCV 83.7 (81.0-99.0) fL MCH 27.3 (27.0-31.0) pg MCHC 32.6 L (33.0-37.0) g/dL RDW 17.3 H (11.5-14.5) % Plt Count 478 H (130-400) K/uL MPV 7.9 (7.2-11.7) fL Neut % (Auto) 87.3 H (50.0-75.0) % Lymph % (Auto) 4.5 L (20.0-40.0) % [place] % (Auto) 7.2 (0.0-10.0) % Eos % (Auto) 0.5 (0.0-4.0) % Baso % (Auto) 0.5 (0.0-2.0) % Neut # (Auto) 11.2 H (1.8-7.0) K/uL Lymph # (Auto) 0.6 L (1.0-4.3) K/uL [place] # (Auto) 0.9 H (0.0-0.8) K/uL Eos # (Auto) 0.1 (0.0-0.7) K/uL Baso # (Auto) 0.1 (0.0-0.2) K/uL Neutrophils % (Manual) 87 H (50-75) % Band Neutrophils % 1 (0-2) % Lymphocytes % (Manual) 2 L (20-40) % Monocytes % (Manual) 10 (0-10) % Eosinophils % (Manual) (0-4) % Platelet Estimate Normal (NORMAL) Large Platelets Present Hypochromasia (manual) Slight Anisocytosis (manual) Microcytosis (manual) Slight Ovalocytes Slight PT 13.5 H (9.7-12.2) SECONDS INR 1.2 APTT 77 H D (21-34) SECONDS Sodium 138 (132-148) mmol/L Potassium 3.6 (3.6-5.2) mmol/L Chloride 114 H (98-107) mmol/L Carbon Dioxide 22 (22-30) mmol/L Anion Gap 6 L (10-20) BUN 10 (7-17) mg/dL Creatinine 0.5 L (0.7-1.2) mg/dL Est GFR ( Amer) > 60 Est GFR (Non-Af Amer) > 60 Random Glucose 132 H (65-105) mg/dL Calcium 6.2 L (8.6-10.4) mg/dl Phosphorus 2.7 (2.5-4.5) mg/dL Magnesium 1.6 (1.6-2.3) mg/dL Total Bilirubin 0.3 (0.2-1.3) mg/dL AST 18 (14-36) U/L ALT 20 (9-52) U/L Alkaline Phosphatase 45 (38-126) U/L Total Creatine Kinase 110 (30-135) U/L CK-MB (Mass) 0.57 (0.0-3.38) ng/mL Troponin I < 0.0120 (0.00-0.120) ng/mL Total Protein 4.1 L (6.3-8.3) g/dL Albumin 2.1 L D (3.5-5.0) g/dL Globulin 2.1 L (2.2-3.9) gm/dL Albumin/Globulin Ratio 1.0 (1.0-2.1) Laboratory Results - last 24 hr 09/19/18 09/19/18 09/19/18 20:47 21:10 23:23 WBC 12.8 H RBC 4.11 Hgb 11.2 D Hct 34.3 MCV 83.7 MCH 27.3 MCHC 32.6 L RDW 17.3 H Plt Count 478 H MPV 7.9 Neut % (Auto) 87.3 H Lymph % (Auto) 4.5 L [place] % (Auto) 7.2 Eos % (Auto) 0.5 Baso % (Auto) 0.5 Neut # (Auto) 11.2 H Lymph # (Auto) 0.6 L [place] # (Auto) 0.9 H Eos # (Auto) 0.1 Baso # (Auto) 0.1 Neutrophils % (Manual) 87 H Band Neutrophils % 1 Lymphocytes % (Manual) 2 L Monocytes % (Manual) 10 Eosinophils % (Manual) Platelet Estimate Normal Large Platelets Present Hypochromasia (manual) Slight Anisocytosis (manual) Microcytosis (manual) Slight Ovalocytes Slight PT 13.5 H INR 1.2 APTT 77 H D Sodium 138 Potassium 3.6 Chloride 114 H Carbon Dioxide 22 Anion Gap 6 L BUN 10 Creatinine 0.5 L Est GFR ( Amer) > 60 Est GFR (Non-Af Amer) > 60 Random Glucose 132 H Calcium 6.2 L Phosphorus 2.7 Magnesium 1.6 Total Bilirubin 0.3 AST 18 ALT 20 Alkaline Phosphatase 45 Total Creatine Kinase 110 CK-MB (Mass) 0.57 Troponin I < 0.0120 Total Protein 4.1 L Albumin 2.1 L D Globulin 2.1 L Albumin/Globulin Ratio 1.0 09/20/18 09/20/1819 06:24 06:26 06:26 WBC 12.1 H RBC 3.72 L Hgb 10.2 L Hct 31.3 L MCV 84.1 MCH 27.5 MCHC 32.7 L RDW 17.2 H Plt Count 475 H MPV 8.9 Neut % (Auto) 81.3 H Lymph % (Auto) 8.4 L [place] % (Auto) 8.7 Eos % (Auto) 1.1 Baso % (Auto) 0.5 Neut # (Auto) 9.8 H Lymph # (Auto) 1.0 [place] # (Auto) 1.0 H Eos # (Auto) 0.1 Baso # (Auto) 0.1 Neutrophils % (Manual) 86 H Band Neutrophils % Lymphocytes % (Manual) 5 L Monocytes % (Manual) 8 Eosinophils % (Manual) 1 Platelet Estimate Slightly increased H Large Platelets Hypochromasia (manual) Anisocytosis (manual) Slight Microcytosis (manual) Ovalocytes PT INR APTT 73 H Sodium 132 Potassium 4.4 Chloride 100 Carbon Dioxide 28 Anion Gap 8 L BUN 12 Creatinine 0.7 Est GFR ( Amer) > 60 Est GFR (Non-Af Amer) > 60 Random Glucose 159 H D Calcium 8.2 L Phosphorus 3.2 Magnesium 2.1 Total Bilirubin 0.3 AST 29 ALT 22 Alkaline Phosphatase 49 Total Creatine Kinase CK-MB (Mass) Troponin I Total Protein 5.1 L Albumin 2.7 L D Globulin 2.3 Albumin/Globulin Ratio 1.2 Critical Care Progress Note - Nutrition Nutrition: Nutrition Category Date Time Status Heart Healthy Diet [DIET] Diets 09/19/18 Breakfast Active Assessment/Plan - Assessment and Plan (Free Text) Plan: Patient is a 72 year old female with pmhx of HTN, GERD, HLD, RLE DVT s/p embolectomy in 2008, retroperitoneal bleed admitted to hospital for occlusion of left popliteal artery as showed on CTA, Vasc surgery on case performed B/l femoral embolectomy pod#1 with patch closure right common fem and ballon angioplasty left ant tibial and left peroneal with thrombolysis left ant tibial and left peroneal, continued on heparin drip transferred to ICU for further management, and for possible surgical intervention. no acute changes overnight, pedal pulses noted b/l with doppler Neuro AAOx3 no acute issues Cardio continue heparin drip - DVT protocol - as per surgery coags yesterday - PT 13.5, PTT 77, INR 1.2 Hx of HTN - amlodipine and coozar Pulm O2 via nasal canula O2 wnl, RR 17 GI Heart healthy diet Endo hx of retroperitoneal hematoma - right adrenal gland CTA - subacute right adrenal hemorrhage continue to monitor Heme H/H stable at 10.2, prev 11.2 continue to mon platelets 475 Nephro LR @ 75 cc/hr continue fluids for washing IV contrast on randolph - monitor I/O - 709ml past 24 hours no electrolytes abnormalities cont to monitor Ext Left popliteal occlusion on CTA s/p bl l femoral embolectomy/thrombectomy 09/19 Heparin drip continue fluids pulses noted with doppler. [facility] surgery - as per surgical team, no plans for bypass PPx DVT :heparin drip GI: not indicated Morphine 2mg IVP Q4 PRN Percocet 1 tab PO Q6 PRN, Dilaudid .5 mg PRN Dispo: will follow with Dr Colby's team on cont surgical intervention and management. Plan discussed with Dr Maurisio Teixeira, PGY-1 - Date & Time Date: 09/20/18 Time: 09:00 <Del Forde - Last Filed: 09/20/18 17:09> CCU Objective - Vital Signs / Intake & Output Vital Signs (Last 4 hours): Vital Signs Temp Pulse Resp BP BP Pulse Ox 09/20/18 16:00 98.4 F 74 16 91/46 L 99 09/20/18 15:44 77 16 118/44 L 100 09/20/18 15:18 73 13 109/44 L 99 09/20/18 14:18 77 17 115/47 L 100 09/20/18 14:00 108/96 H 09/20/18 13:18 74 16 124/53 L 100 Intake and Output (Last 8hrs): Intake & Output 09/20/18 09/20/18 09/20/18 06:59 14:59 22:59 Intake Total 689.6 1169.6 422.4 Output Total 255 710 90 Balance 434.6 459.6 332.4 Weight 137 lb Intake: IV 250 Intake, IV Amount 689.6 689.6 172.4 Left Forearm 525 150 Left Hand 600 75 Right Hand 89.6 11.2 Right Wrist 78.4 22.4 Oral 480 Output: Urine 255 710 90 Urethral (Randolph) 255 710 90 Stool 0 - Medications Active Medications: Active Medications Generic Name Dose Route Start Last Admin Trade Name Freq PRN Reason Stop Dose Admin Amlodipine Besylate 5 mg 09/18/18 10:00 09/20/18 10:00 Norvasc PO Not Given DAILY VIVIAN Folic Acid 1 mg 09/19/18 10:00 09/20/18 09:25 Folic Acid PO 1 mg DAILY VIVIAN Administration Hydromorphone HCl 0.5 mg 09/19/18 14:01 09/19/18 14:05 Dilaudid IVP 0.5 mg Q5M PRN Administration Pain, severe (8-10) Heparin Sodium/Sodium Chloride 25,000 units in 250 mls @ 11.186 mls/hr 09/19/18 08:45 09/20/18 15:11 Heparin 54838 Units/250ml 1/2 Normal Saline IV 18 units/kg/hr .[id number] PRN 11.186 mls/hr PROTOCOL Administration Protocol 18 UNITS/KG/HR Lactated Ringer's 1,000 mls @ 75 mls/hr 09/19/18 16:45 09/20/18 06:15 Lactated Ringer's IV 75 mls/hr .[id number] VIVIAN Administration Losartan Potassium 25 mg 09/18/18 10:00 09/20/18 10:00 Cozaar PO Not Given DAILY VIVIAN Morphine Sulfate 2 mg 09/18/18 12:31 09/19/18 22:30 Morphine IVP 2 mg Q4 PRN Administration Pain, severe (8-10) Oxycodone/Acetaminophen 1 tab 09/19/18 14:39 09/20/18 10:27 Percocet 5/325 Mg Tab PO 09/22/18 14:40 1 tab Q6H PRN Administration Pain, moderate (4-7) Trazodone HCl 50 mg 09/18/18 22:00 09/19/18 21:35 Desyrel PO 50 mg HS VIVIAN Administration - Patient Studies Lab Studies: Lab Studies 09/20/18 09/20/18 09/20/18 Range/Units 06:26 06:26 06:24 WBC 12.1 H (4.8-10.8) K/uL RBC 3.72 L (3.80-5.20) Mil/uL Hgb 10.2 L (11.0-16.0) g/dL Hct 31.3 L (34.0-47.0) % MCV 84.1 (81.0-99.0) fL MCH 27.5 (27.0-31.0) pg MCHC 32.7 L (33.0-37.0) g/dL RDW 17.2 H (11.5-14.5) % Plt Count 475 H (130-400) K/uL MPV 8.9 (7.2-11.7) fL Neut % (Auto) 81.3 H (50.0-75.0) % Lymph % (Auto) 8.4 L (20.0-40.0) % [place] % (Auto) 8.7 (0.0-10.0) % Eos % (Auto) 1.1 (0.0-4.0) % Baso % (Auto) 0.5 (0.0-2.0) % Neut # (Auto) 9.8 H (1.8-7.0) K/uL Lymph # (Auto) 1.0 (1.0-4.3) K/uL [place] # (Auto) 1.0 H (0.0-0.8) K/uL Eos # (Auto) 0.1 (0.0-0.7) K/uL Baso # (Auto) 0.1 (0.0-0.2) K/uL Neutrophils % (Manual) 86 H (50-75) % Band Neutrophils % (0-2) % Lymphocytes % (Manual) 5 L (20-40) % Monocytes % (Manual) 8 (0-10) % Eosinophils % (Manual) 1 (0-4) % Platelet Estimate Slightly increased H (NORMAL) Large Platelets Hypochromasia (manual) Anisocytosis (manual) Slight Microcytosis (manual) Ovalocytes PT (9.7-12.2) SECONDS INR APTT 73 H (21-34) SECONDS Sodium 132 (132-148) mmol/L Potassium 4.4 (3.6-5.2) mmol/L Chloride 100 (98-107) mmol/L Carbon Dioxide 28 (22-30) mmol/L Anion Gap 8 L (10-20) BUN 12 (7-17) mg/dL Creatinine 0.7 (0.7-1.2) mg/dL Est GFR ( Amer) > 60 Est GFR (Non-Af Amer) > 60 Random Glucose 159 H D (65-105) mg/dL Calcium 8.2 L (8.6-10.4) mg/dl Phosphorus 3.2 (2.5-4.5) mg/dL Magnesium 2.1 (1.6-2.3) mg/dL Total Bilirubin 0.3 (0.2-1.3) mg/dL AST 29 (14-36) U/L ALT 22 (9-52) U/L Alkaline Phosphatase 49 (38-126) U/L Total Creatine Kinase (30-135) U/L CK-MB (Mass) (0.0-3.38) ng/mL Troponin I (0.00-0.120) ng/mL Total Protein 5.1 L (6.3-8.3) g/dL Albumin 2.7 L D (3.5-5.0) g/dL Globulin 2.3 (2.2-3.9) gm/dL Albumin/Globulin Ratio 1.2 (1.0-2.1) 09/19/18 09/19/18 09/19/18 Range/Units 23:23 21:10 20:47 WBC 12.8 H (4.8-10.8) K/uL RBC 4.11 (3.80-5.20) Mil/uL Hgb 11.2 D (11.0-16.0) g/dL Hct 34.3 (34.0-47.0) % MCV 83.7 (81.0-99.0) fL MCH 27.3 (27.0-31.0) pg MCHC 32.6 L (33.0-37.0) g/dL RDW 17.3 H (11.5-14.5) % Plt Count 478 H (130-400) K/uL MPV 7.9 (7.2-11.7) fL Neut % (Auto) 87.3 H (50.0-75.0) % Lymph % (Auto) 4.5 L (20.0-40.0) % [place] % (Auto) 7.2 (0.0-10.0) % Eos % (Auto) 0.5 (0.0-4.0) % Baso % (Auto) 0.5 (0.0-2.0) % Neut # (Auto) 11.2 H (1.8-7.0) K/uL Lymph # (Auto) 0.6 L (1.0-4.3) K/uL [place] # (Auto) 0.9 H (0.0-0.8) K/uL Eos # (Auto) 0.1 (0.0-0.7) K/uL Baso # (Auto) 0.1 (0.0-0.2) K/uL Neutrophils % (Manual) 87 H (50-75) % Band Neutrophils % 1 (0-2) % Lymphocytes % (Manual) 2 L (20-40) % Monocytes % (Manual) 10 (0-10) % Eosinophils % (Manual) (0-4) % Platelet Estimate Normal (NORMAL) Large Platelets Present Hypochromasia (manual) Slight Anisocytosis (manual) Microcytosis (manual) Slight Ovalocytes Slight PT 13.5 H (9.7-12.2) SECONDS INR 1.2 APTT 77 H D (21-34) SECONDS Sodium 138 (132-148) mmol/L Potassium 3.6 (3.6-5.2) mmol/L Chloride 114 H (98-107) mmol/L Carbon Dioxide 22 (22-30) mmol/L Anion Gap 6 L (10-20) BUN 10 (7-17) mg/dL Creatinine 0.5 L (0.7-1.2) mg/dL Est GFR ( Amer) > 60 Est GFR (Non-Af Amer) > 60 Random Glucose 132 H (65-105) mg/dL Calcium 6.2 L (8.6-10.4) mg/dl Phosphorus 2.7 (2.5-4.5) mg/dL Magnesium 1.6 (1.6-2.3) mg/dL Total Bilirubin 0.3 (0.2-1.3) mg/dL AST 18 (14-36) U/L ALT 20 (9-52) U/L Alkaline Phosphatase 45 (38-126) U/L Total Creatine Kinase 110 (30-135) U/L CK-MB (Mass) 0.57 (0.0-3.38) ng/mL Troponin I < 0.0120 (0.00-0.120) ng/mL Total Protein 4.1 L (6.3-8.3) g/dL Albumin 2.1 L D (3.5-5.0) g/dL Globulin 2.1 L (2.2-3.9) gm/dL Albumin/Globulin Ratio 1.0 (1.0-2.1) Laboratory Results - last 24 hr 09/19/18 09/19/18 09/19/18 20:47 21:10 23:23 WBC 12.8 H RBC 4.11 Hgb 11.2 D Hct 34.3 MCV 83.7 MCH 27.3 MCHC 32.6 L RDW 17.3 H Plt Count 478 H MPV 7.9 Neut % (Auto) 87.3 H Lymph % (Auto) 4.5 L [place] % (Auto) 7.2 Eos % (Auto) 0.5 Baso % (Auto) 0.5 Neut # (Auto) 11.2 H Lymph # (Auto) 0.6 L [place] # (Auto) 0.9 H Eos # (Auto) 0.1 Baso # (Auto) 0.1 Neutrophils % (Manual) 87 H Band Neutrophils % 1 Lymphocytes % (Manual) 2 L Monocytes % (Manual) 10 Eosinophils % (Manual) Platelet Estimate Normal Large Platelets Present Hypochromasia (manual) Slight Anisocytosis (manual) Microcytosis (manual) Slight Ovalocytes Slight PT 13.5 H INR 1.2 APTT 77 H D Sodium 138 Potassium 3.6 Chloride 114 H Carbon Dioxide 22 Anion Gap 6 L BUN 10 Creatinine 0.5 L Est GFR ( Amer) > 60 Est GFR (Non-Af Amer) > 60 Random Glucose 132 H Calcium 6.2 L Phosphorus 2.7 Magnesium 1.6 Total Bilirubin 0.3 AST 18 ALT 20 Alkaline Phosphatase 45 Total Creatine Kinase 110 CK-MB (Mass) 0.57 Troponin I < 0.0120 Total Protein 4.1 L Albumin 2.1 L D Globulin 2.1 L Albumin/Globulin Ratio 1.0 09/20/18 09/20/18 09/20/18 06:24 06:26 06:26 WBC 12.1 H RBC 3.72 L Hgb 10.2 L Hct 31.3 L MCV 84.1 MCH 27.5 MCHC 32.7 L RDW 17.2 H Plt Count 475 H MPV 8.9 Neut % (Auto) 81.3 H Lymph % (Auto) 8.4 L [place] % (Auto) 8.7 Eos % (Auto) 1.1 Baso % (Auto) 0.5 Neut # (Auto) 9.8 H Lymph # (Auto) 1.0 [place] # (Auto) 1.0 H Eos # (Auto) 0.1 Baso # (Auto) 0.1 Neutrophils % (Manual) 86 H Band Neutrophils % Lymphocytes % (Manual) 5 L Monocytes % (Manual) 8 Eosinophils % (Manual) 1 Platelet Estimate Slightly increased H Large Platelets Hypochromasia (manual) Anisocytosis (manual) Slight Microcytosis (manual) Ovalocytes PT INR APTT 73 H Sodium 132 Potassium 4.4 Chloride 100 Carbon Dioxide 28 Anion Gap 8 L BUN 12 Creatinine 0.7 Est GFR ( Amer) > 60 Est GFR (Non-Af Amer) > 60 Random Glucose 159 H D Calcium 8.2 L Phosphorus 3.2 Magnesium 2.1 Total Bilirubin 0.3 AST 29 ALT 22 Alkaline Phosphatase 49 Total Creatine Kinase CK-MB (Mass) Troponin I Total Protein 5.1 L Albumin 2.7 L D Globulin 2.3 Albumin/Globulin Ratio 1.2 Critical Care Progress Note - Nutrition Nutrition: Nutrition Category Date Time Status Heart Healthy Diet [DIET] Diets 09/19/18 Breakfast Active Attending/Attestation - Attestation I have personally seen and examined this patient.: Yes I have fully participated in the care of the patient.: Yes I have reviewed all pertinent clinical information: Yes Notes (Text): 09/20/18 17:08 I have seen and examined the patient. Medical records, lab studies, and imaging were reviewed by me and a management plan was formulated on multidisciplinary rounds with resident Dr. Teixeira. I agree with their documented assessment and plan. Patient is clinically stable, has dopplerable pulses bilaterally, no current need for bypass, continuing heparin gtt, no bleeding complications so far. Critical Care Time 35 minutes. Multi-disciplinary rounds were performed with house staff, nursing, speech therapy, respiratory therapy, pharmacy and nutrition with integrated input from the primary team/attending and other consulting services. The documented time is cumulative and includes review of patient data/exams/labs/chart review and examination of the patient on rounds and throughout the day; time is exclusive of any procedures or teaching time.
[2018-09-20] MEDS ORDERED: Pneumococcal 23-Valent Vaccine IM ONE (14:00)
[2018-09-20] MEDS: Heparin25000 units/250ml 1/2NS 25,000 UNITS/250 ML BAG IV PRN (15:11)
--- NOTE | 2018-09-20 19:44 | CP.PCM.PN ---
Subjective - Date & Time of Evaluation Date of Evaluation: 09/20/18 Time of Evaluation: 19:38 - Subjective Subjective: The pt is alert, awake, c/o some pain at the A-line site, Hgb decreased from baseline, no active bleeding from catheter sites, no bruising. Objective - Vital Signs/Intake and Output Vital Signs (last 24 hours): Temp Pulse Resp BP Pulse Ox 98.4 F 84 14 125/56 L 99 09/20/18 16:00 09/20/18 18:00 09/20/18 18:00 09/20/18 17:18 09/20/18 18:00 Intake and Output: 09/20/18 09/21/18 18:59 06:59 Intake Total 2004.4 Output Total 1000 Balance 1004.4 - Medications Medications: Current Medications Amlodipine Besylate (Norvasc) 5 mg PO DAILY [facility] Last Admin: 09/20/18 10:00 Dose: Not Given Folic Acid (Folic Acid) 1 mg PO DAILY [facility] Last Admin: 09/20/18 09:25 Dose: 1 mg Hydromorphone HCl (Dilaudid) 0.5 mg IVP Q5M PRN PRN Reason: Pain, severe (8-10) Last Admin: 09/19/18 14:05 Dose: 0.5 mg Heparin Sodium/Sodium Chloride (Heparin 90074 Units/250ml 1/2 Normal Saline) 25,000 units in 250 mls @ 11.186 mls/hr IV .[id number] PRN; Protocol PRN Reason: PROTOCOL Last Admin: 09/20/18 15:11 Dose: 18 units/kg/hr, 11.186 mls/hr Lactated Ringer's (Lactated Ringer's) 1,000 mls @ 75 mls/hr IV .[id number] [facility] Last Admin: 09/20/18 06:15 Dose: 75 mls/hr Losartan Potassium (Cozaar) 25 mg PO DAILY [facility] Last Admin: 09/20/18 10:00 Dose: Not Given Morphine Sulfate (Morphine) 2 mg IVP Q4 PRN PRN Reason: Pain, severe (8-10) Last Admin: 09/19/18 22:30 Dose: 2 mg Oxycodone/Acetaminophen (Percocet 5/325 Mg Tab) 1 tab PO Q6H PRN PRN Reason: Pain, moderate (4-7) Stop: 09/22/18 14:40 Last Admin: 09/20/18 17:25 Dose: 1 tab Trazodone HCl (Desyrel) 50 mg PO HS [facility] Last Admin: 09/19/18 21:35 Dose: 50 mg - Labs Labs: 09/20/18 06:26 09/20/18 06:24 PT 13.5 SECONDS (9.7-12.2) H 09/19/18 23:23 INR 1.2 09/19/18 23:23 APTT 73 SECONDS (21-34) H 09/20/18 06:26 Assessment and Plan (1) Thrombocytosis Assessment & Plan: 72 yo woman with thrombocytosis, work up showing JEANNINE-2 mutation positive, at this time will hold off on PO hydrea because of immediate post-op status. Will monitor H/H. Status: Acute
--- NOTE | 2018-09-20 21:11 | CP.PCM.PN ---
Subjective - Date & Time of Evaluation Date of Evaluation: 09/19/18 Time of Evaluation: 21:09 - Subjective Subjective: Patient postoperative. Monitoring in the intensive care unit. Currently receiving heparin drip. Left leg thrombolysis of the popliteal artery. Still mild dopplerable pulse only, and dorsalis pedis is not dopplerable. Continue the current treatment. Pain management. Spoke to the family and will follow the patient Objective - Vital Signs/Intake and Output Vital Signs (last 24 hours): Temp Pulse Resp BP Pulse Ox 98.4 F 79 19 113/46 L 99 09/20/18 16:00 09/20/18 19:18 09/20/18 19:18 09/20/18 19:18 09/20/18 19:18 Intake and Output: 09/20/18 09/21/18 18:59 06:59 Intake Total 2004.4 86.2 Output Total 1000 75 Balance 1004.4 11.2 - Medications Medications: Current Medications Amlodipine Besylate (Norvasc) 5 mg PO DAILY [facility] Last Admin: 09/20/18 10:00 Dose: Not Given Folic Acid (Folic Acid) 1 mg PO DAILY [facility] Last Admin: 09/20/18 09:25 Dose: 1 mg Hydromorphone HCl (Dilaudid) 0.5 mg IVP Q5M PRN PRN Reason: Pain, severe (8-10) Last Admin: 09/19/18 14:05 Dose: 0.5 mg Heparin Sodium/Sodium Chloride (Heparin 28606 Units/250ml 1/2 Normal Saline) 25,000 units in 250 mls @ 11.186 mls/hr IV .[id number] PRN; Protocol PRN Reason: PROTOCOL Last Admin: 09/20/18 15:11 Dose: 18 units/kg/hr, 11.186 mls/hr Lactated Ringer's (Lactated Ringer's) 1,000 mls @ 75 mls/hr IV .[id number] [facility] Last Admin: 09/20/18 06:15 Dose: 75 mls/hr Losartan Potassium (Cozaar) 25 mg PO DAILY [facility] Last Admin: 09/20/18 10:00 Dose: Not Given Morphine Sulfate (Morphine) 2 mg IVP Q4 PRN PRN Reason: Pain, severe (8-10) Last Admin: 09/19/18 22:30 Dose: 2 mg Oxycodone/Acetaminophen (Percocet 5/325 Mg Tab) 1 tab PO Q6H PRN PRN Reason: Pain, moderate (4-7) Stop: 09/22/18 14:40 Last Admin: 09/20/18 17:25 Dose: 1 tab Saliva Substitute (First Magic Mouthwash) 5 ml PO TID [facility] Trazodone HCl (Desyrel) 50 mg PO [facility] Last Admin: 09/19/18 21:35 Dose: 50 mg - Labs Labs: 09/20/18 06:26 09/20/18 06:24 PT 13.5 SECONDS (9.7-12.2) H 09/19/18 23:23 INR 1.2 09/19/18 23:23 APTT 73 SECONDS (21-34) H 09/20/18 06:26
--- NOTE | 2018-09-20 21:12 | CP.PCM.PN ---
Subjective - Date & Time of Evaluation Date of Evaluation: 09/20/18 Time of Evaluation: 21:11 - Subjective Subjective: Patient is comfortably lying down. The left leg is more warm than yesterday. Patient has a dopplerable pulse in both the dorsalis pedis and posterior tibial on the left side. Currently receiving heparin drip. No abdominal pain. Poorly eating. Blood pressure stable Vital signs otherwise stable. Chest good air entry Regular hs Nontender abdomen Labs reviewed I discussed with the oncologist lang path therapist. We will continue to monitor. Patient is a 72-year-old female with a history of hypertension and HLD. Peripheral vascular disease. Patient also has a thrombocytosis. Associated with the atherosclerotic disease. With embolic episodes. Acute embolism of the left lower extremity, status post thrombolysis on heparin drip. We will closely monitor the hemoglobin and will follow the patient Objective - Vital Signs/Intake and Output Vital Signs (last 24 hours): Temp Pulse Resp BP Pulse Ox 98.4 F 79 19 113/46 L 99 09/20/18 16:00 09/20/18 19:18 09/20/18 19:18 09/20/18 19:18 09/20/18 19:18 Intake and Output: 09/20/18 09/21/18 18:59 06:59 Intake Total 2004.4 86.2 Output Total 1000 75 Balance 1004.4 11.2 - Medications Medications: Current Medications Amlodipine Besylate (Norvasc) 5 mg PO DAILY [facility] Last Admin: 09/20/18 10:00 Dose: Not Given Folic Acid (Folic Acid) 1 mg PO DAILY [facility] Last Admin: 09/20/18 09:25 Dose: 1 mg Hydromorphone HCl (Dilaudid) 0.5 mg IVP Q5M PRN PRN Reason: Pain, severe (8-10) Last Admin: 09/19/18 14:05 Dose: 0.5 mg Heparin Sodium/Sodium Chloride (Heparin 81424 Units/250ml 1/2 Normal Saline) 25,000 units in 250 mls @ 11.186 mls/hr IV .[id number] PRN; Protocol PRN Reason: PROTOCOL Last Admin: 09/20/18 15:11 Dose: 18 units/kg/hr, 11.186 mls/hr Lactated Ringer's (Lactated Ringer's) 1,000 mls @ 75 mls/hr IV .[id number] [facility] Last Admin: 09/20/18 06:15 Dose: 75 mls/hr Losartan Potassium (Cozaar) 25 mg PO DAILY [facility] Last Admin: 09/20/18 10:00 Dose: Not Given Morphine Sulfate (Morphine) 2 mg IVP Q4 PRN PRN Reason: Pain, severe (8-10) Last Admin: 09/19/18 22:30 Dose: 2 mg Oxycodone/Acetaminophen (Percocet 5/325 Mg Tab) 1 tab PO Q6H PRN PRN Reason: Pain, moderate (4-7) Stop: 09/22/18 14:40 Last Admin: 09/20/18 17:25 Dose: 1 tab Saliva Substitute (First Magic Mouthwash) 5 ml PO TID [facility] Trazodone HCl (Desyrel) 50 mg PO HS [facility] Last Admin: 09/19/18 21:35 Dose: 50 mg - Labs Labs: 09/20/18 06:26 09/20/18 06:24 PT 13.5 SECONDS (9.7-12.2) H 09/19/18 23:23 INR 1.2 09/19/18 23:23 APTT 73 SECONDS (21-34) H 09/20/18 06:26
--- NOTE | 2018-09-21 03:41 | CP.PCM.PN ---
Subjective - Date & Time of Evaluation Date of Evaluation: 09/21/18 Time of Evaluation: 03:40 - Subjective Subjective: SURGERY NOTE FOR DR. VALENZUELA 72F seen and examined at bedside. Tenderness in lower extremities. Heparin gtt. Objective - Vital Signs/Intake and Output Vital Signs (last 24 hours): Temp Pulse Resp BP Pulse Ox 98.1 F 80 16 132/54 L 100 09/21/18 00:00 09/21/18 01:18 09/21/18 01:18 09/21/18 01:18 09/21/18 01:18 Intake and Output: 09/20/18 09/21/18 18:59 06:59 Intake Total 2004.4 603.4 Output Total 1000 675 Balance 1004.4 -71.6 - Medications Medications: Current Medications Amlodipine Besylate (Norvasc) 5 mg PO DAILY [facility] Last Admin: 09/20/18 10:00 Dose: Not Given Folic Acid (Folic Acid) 1 mg PO DAILY [facility] Last Admin: 09/20/18 09:25 Dose: 1 mg Hydromorphone HCl (Dilaudid) 0.5 mg IVP Q5M PRN PRN Reason: Pain, severe (8-10) Last Admin: 09/19/18 14:05 Dose: 0.5 mg Heparin Sodium/Sodium Chloride (Heparin 93786 Units/250ml 1/2 Normal Saline) 25,000 units in 250 mls @ 11.186 mls/hr IV .[id number] PRN; Protocol PRN Reason: PROTOCOL Last Admin: 09/20/18 15:11 Dose: 18 units/kg/hr, 11.186 mls/hr Lactated Ringer's (Lactated Ringer's) 1,000 mls @ 75 mls/hr IV .[id number] [facility] Last Admin: 09/20/18 21:28 Dose: Not Given Losartan Potassium (Cozaar) 25 mg PO DAILY [facility] Last Admin: 09/20/18 10:00 Dose: Not Given Morphine Sulfate (Morphine) 2 mg IVP Q4 PRN PRN Reason: Pain, severe (8-10) Last Admin: 09/19/18 22:30 Dose: 2 mg Oxycodone/Acetaminophen (Percocet 5/325 Mg Tab) 1 tab PO Q6H PRN PRN Reason: Pain, moderate (4-7) Stop: 02/03/19 14:40 Last Admin: 09/20/18 17:25 Dose: 1 tab Saliva Substitute (First Magic Mouthwash) 5 ml PO TID [facility] Trazodone HCl (Desyrel) 50 mg PO HS [facility] Last Admin: 09/20/18 22:58 Dose: 50 mg - Labs Labs: 09/20/18 06:26 09/20/18 06:24 PT 13.5 SECONDS (9.7-12.2) H 09/19/18 23:23 INR 1.2 09/19/18 23:23 APTT 73 SECONDS (21-34) H 09/20/18 06:26 - Constitutional Appears: Non-toxic, No Acute Distress - Respiratory Exam Respiratory Exam: Clear to Ausculation Bilateral, NORMAL BREATHING PATTERN - Cardiovascular Exam Cardiovascular Exam: REGULAR RHYTHM, +S1, +S2 - GI/Abdominal Exam GI & Abdominal Exam: Soft. absent: Distended, Firm, Guarding, Rigid, Tenderness - Extremities Exam Additional comments: dopplerable signals in DP/PT bilaterally - Neurological Exam Neurological Exam: Alert, Awake Assessment and Plan - Assessment and Plan (Free Text) Assessment: 72yo F with bilateral lower extremity embolic occlusive disease now s/p bilateral transfemoral embolectomy w/ balloon angioplasty left anterior tibial and left peroneal. Thrombolysis left anterior tibial and left peroneal POD#2 Plan: - cont hep gtt - doppler checks Further recs discuss with Dr. Lasha Blackwell, PGY3
[2018-09-21 05:53] LABS: BASO # 0.1 K/uL (0.0-0.2); BASO % 0.6 % (0.0-2.0); EOS # 0.4 K/uL (0.0-0.7); EOS % 3.2 % (0.0-4.0); HEMOGLOBIN 9.7 g/dL (11.0-16.0); LYMPH % 9.1 % (20.0-40.0); MEAN CORPUSCULAR HEMOGLOBIN 27.2 pg (27.0-31.0); MEAN CORPUSCULAR HGB CONC 32.4 g/dL (33.0-37.0); MEAN PLATELET VOLUME 8.2 fL (7.2-11.7); MONO # 0.9 K/uL (0.0-0.8); MONO % 7.5 % (0.0-10.0); NEUT # 9.1 K/uL (1.8-7.0); NEUT % 79.6 % (50.0-75.0); PLATELET COUNT 515 K/uL (130-400); RBC 3.57 Mil/uL (3.80-5.20); RED CELL DISTRIBUTION WIDTH 17.6 % (11.5-14.5); WHITE BLOOD COUNT 11.5 K/uL (4.8-10.8)
[2018-09-21 06:08] LABS: ALB/GLOB RATIO 1.1 (1.0-2.1); ALBUMIN 2.8 g/dL (3.5-5.0); ALT/SGPT 20 U/L (9-52); AST/SGOT 24 U/L (14-36); BLOOD UREA NITROGEN 9 mg/dL (7-17); CALCIUM 8.3 mg/dl (8.6-10.4); GFR NON-AFRICAN AMERICAN > 60
[2018-09-21 06:11] LABS: INR 1.3; PROTHROMBIN TIME 14.2 SECONDS (9.7-12.2)
[2018-09-21 07:13] LABS: BANDS 1 % (0-2); EOSINOPHIL 5 % (0-4); LYMPHOCYTE 8 % (20-40); MONOCYTE 3 % (0-10); NEUTROPHIL 83 % (50-75); TOTAL CELLS COUNTED 100
[2018-09-21 07:14] LABS: PLATELET ESTIMATE NORMAL (NORMAL)
[2018-09-21] MEDS: Mag&Al/Simet/Diphen/Lido 237 ML KIT PO SCH ×3 (09:27→17:37)
--- NOTE | 2018-09-21 09:49 | CP.PCM.PN ---
Subjective - Date & Time of Evaluation Date of Evaluation: 09/21/18 Time of Evaluation: 09:35 - Subjective Subjective: Covering DR Eason. F/u panc duct dil Denies abd pain, fever, Sz, RB, melena, fever, hematuria, hemoptysis. + constip Objective - Vital Signs/Intake and Output Vital Signs (last 24 hours): Temp Pulse Resp BP Pulse Ox 99.1 F 77 14 148/61 94 L 09/21/18 08:00 09/21/18 08:18 09/21/18 08:18 09/21/18 08:18 09/21/18 08:18 Intake and Output: 09/21/18 09/21/18 06:59 18:59 Intake Total 1034.4 172.4 Output Total 1475 0 Balance -440.6 172.4 - Medications Medications: Current Medications Amlodipine Besylate (Norvasc) 5 mg PO DAILY [facility] Last Admin: 09/21/18 09:27 Dose: 5 mg Folic Acid (Folic Acid) 1 mg PO DAILY [facility] Last Admin: 09/21/18 09:26 Dose: 1 mg Hydromorphone HCl (Dilaudid) 0.5 mg IVP Q5M PRN PRN Reason: Pain, severe (8-10) Last Admin: 09/19/18 14:05 Dose: 0.5 mg Heparin Sodium/Sodium Chloride (Heparin 79363 Units/250ml 1/2 Normal Saline) 25,000 units in 250 mls @ 11.186 mls/hr IV .[id number] PRN; Protocol PRN Reason: PROTOCOL Last Admin: 09/20/18 15:11 Dose: 18 units/kg/hr, 11.186 mls/hr Lactated Ringer's (Lactated Ringer's) 1,000 mls @ 75 mls/hr IV .[id number] [facility] Last Admin: 09/20/18 21:28 Dose: Not Given Losartan Potassium (Cozaar) 25 mg PO DAILY [facility] Last Admin: 09/21/18 09:26 Dose: 25 mg Morphine Sulfate (Morphine) 2 mg IVP Q4 PRN PRN Reason: Pain, severe (8-10) Last Admin: 09/19/18 22:30 Dose: 2 mg Oxycodone/Acetaminophen (Percocet 5/325 Mg Tab) 1 tab PO Q6H PRN PRN Reason: Pain, moderate (4-7) Stop: 09/22/18 14:40 Last Admin: 09/20/18 17:25 Dose: 1 tab Saliva Substitute (First Magic Mouthwash) 5 ml PO TID [facility] Last Admin: 09/21/18 09:27 Dose: 5 ml Trazodone HCl (Desyrel) 50 mg PO HS [facility] Last Admin: 09/20/18 22:58 Dose: 50 mg - Labs Labs: 09/21/18 05:49 09/21/18 05:49 PT 14.2 SECONDS (9.7-12.2) H 09/21/18 05:49 INR 1.3 09/21/18 05:49 APTT 58 SECONDS (21-34) H D 09/21/18 05:49 - Constitutional Appears: Well - Respiratory Exam Respiratory Exam: Clear to Ausculation Bilateral - Cardiovascular Exam Cardiovascular Exam: RRR - GI/Abdominal Exam GI & Abdominal Exam: Soft, Normal Bowel Sounds. absent: Tenderness - Neurological Exam Neurological Exam: Alert, Awake, Oriented x3 Assessment and Plan (1) Dilated pancreatic duct Assessment & Plan: Consider MRCP Pt is s/p thrombectomy Status: Acute (2) Reflux esophagitis Status: Acute (3) HTN (hypertension) Status: Acute (4) Anemia Assessment & Plan: drop in Hb. P- check Hb, OB, PPI Status: Acute
[2018-09-21] MEDS: Lactated Ringer's 1,000 ML IV SCH (10:27)
--- NOTE | 2018-09-21 11:57 | CP.PCM.PN ---
Subjective - Date & Time of Evaluation Date of Evaluation: 09/21/18 Time of Evaluation: 11:55 - Subjective Subjective: No cardiac complaints of CP or SOB No fevers or chills NSR LE warm, pulses + by doppler Sitting up in chair Objective - Vital Signs/Intake and Output Vital Signs (last 24 hours): Temp Pulse Resp BP Pulse Ox 99.1 F 80 18 129/50 L 96 09/21/18 08:00 09/21/18 11:00 09/21/18 11:00 09/21/18 10:18 09/21/18 11:00 Intake and Output: 09/21/18 09/21/18 06:59 18:59 Intake Total 1034.4 731.0 Output Total 1475 400 Balance -440.6 331.0 - Medications Medications: Current Medications Amlodipine Besylate (Norvasc) 5 mg PO DAILY [facility] Last Admin: 09/21/18 09:27 Dose: 5 mg Docusate Sodium (Colace) 100 mg PO BID [facility] Last Admin: 09/21/18 10:25 Dose: 100 mg Folic Acid (Folic Acid) 1 mg PO DAILY [facility] Last Admin: 09/21/18 09:26 Dose: 1 mg Hydromorphone HCl (Dilaudid) 0.5 mg IVP Q5M PRN PRN Reason: Pain, severe (8-10) Last Admin: 09/19/18 14:05 Dose: 0.5 mg Heparin Sodium/Sodium Chloride (Heparin 12335 Units/250ml 1/2 Normal Saline) 25,000 units in 250 mls @ 11.186 mls/hr IV .[id number] PRN; Protocol PRN Reason: PROTOCOL Last Admin: 09/20/18 15:11 Dose: 18 units/kg/hr, 11.186 mls/hr Lactated Ringer's (Lactated Ringer's) 1,000 mls @ 75 mls/hr IV .[id number] [facility] Last Admin: 09/21/18 10:27 Dose: 75 mls/hr Losartan Potassium (Cozaar) 25 mg PO DAILY [facility] Last Admin: 09/21/18 09:26 Dose: 25 mg Morphine Sulfate (Morphine) 2 mg IVP Q4 PRN PRN Reason: Pain, severe (8-10) Last Admin: 09/19/18 22:30 Dose: 2 mg Oxycodone/Acetaminophen (Percocet 5/325 Mg Tab) 1 tab PO Q6H PRN PRN Reason: Pain, moderate (4-7) Stop: 09/22/18 14:40 Last Admin: 09/20/18 17:25 Dose: 1 tab Saliva Substitute (First Magic Mouthwash) 5 ml PO TID [facility] Last Admin: 09/21/18 09:27 Dose: 5 ml Trazodone HCl (Desyrel) 50 mg PO HS [facility] Last Admin: 09/20/18 22:58 Dose: 50 mg - Labs Labs: 09/21/18 05:49 09/21/18 05:49 PT 14.2 SECONDS (9.7-12.2) H 09/21/18 05:49 INR 1.3 09/21/18 05:49 APTT 58 SECONDS (21-34) H D 09/21/18 05:49 - Constitutional Appears: No Acute Distress - Head Exam Head Exam: ATRAUMATIC, NORMAL INSPECTION, NORMOCEPHALIC - Eye Exam Eye Exam: EOMI, Normal appearance - ENT Exam ENT Exam: Mucous Membranes Moist, Normal Oropharynx - Respiratory Exam Respiratory Exam: Clear to Ausculation Bilateral, NORMAL BREATHING PATTERN. absent: Rhonchi, Wheezes - Cardiovascular Exam Cardiovascular Exam: REGULAR RHYTHM, +S1, +S2. absent: Murmur - GI/Abdominal Exam GI & Abdominal Exam: Soft, Normal Bowel Sounds. absent: Tenderness - Extremities Exam Extremities Exam: Normal Inspection. absent: Calf Tenderness - Neurological Exam Neurological Exam: Alert, Awake, Oriented x3 - Psychiatric Exam Psychiatric exam: Normal Affect, Normal Mood - Skin Skin Exam: Normal Color, Warm Assessment and Plan - Assessment and Plan (Free Text) Assessment: Patient with hx of RSFA acute trombotic occlusion in 2008 RX with embolectomy and since has been on antiplatelet and coumadin. > Recent need for cessation of anticoagulation due to retroperitoneal bleed and right adrenal hemmorhage Aug 2018 complicated by recurrence of thrombotic occlusion in the LE's. Now s/p Bilateral Transfemoral Embolectomy. Patch closure Right Common Femo ral. Balloon Angioplasty Left Anterior Tibial and Left Peroneal. Thrombolysis Left Anterior Tibial and Left Peroneal. Additional suspicion of pancreatic duct dilation and possibility of renal and splenic infarcts on CT/abdominal imaging Heme w/u done [thrombocytosis, work up showing JEANNINE-2 mutation positive] may be starting Hydrea Rx Plan: Cont heparin GTT -> current Hgb 9.7, PLT 515 Eventual will need to transition into a NOAC or coumadin per HEME/ONC suggestion Monitor for any recurrence of retroperotoneal blled or GI/Abd sx's BP is controlled ECHO: normal LVEF and wall motion On norvasc and cozaar
[2018-09-21] MEDS: Heparin25000 units/250ml 1/2NS 25,000 UNITS/250 ML BAG IV PRN (13:32)
[2018-09-21] MEDS: Oxycodone/Acetaminophen 5/325 mg Tab PO PRN (14:31)
[2018-09-22 05:36] LABS: CARDIOLIPIN AB (IGA) <11 APL (<=11); CARDIOLIPIN AB (IGG) <14 GPL (<=14)
[2018-09-22 05:55] LABS: B2 GLYCOPROTEIN I AB(IGA) <9 SAU (<=20); B2 GLYCOPROTEIN I AB(IGG) <9 SGU (<=20); B2 GLYCOPROTEIN I AB(IGM) <9 SMU (<=20)
[2018-09-22 06:35] LABS: CARDIOLIPIN AB (IGM) <12 MPL (<=12); PHOSPHATIDYLSERINE AB IGA <20 U/mL (<20); PHOSPHATIDYLSERINE AB IGG <10 U/mL (<10); PHOSPHATIDYLSERINE AB IGM <25 U/mL (<25)
--- NOTE | 2018-09-22 08:04 | CP.PCM.PN ---
Subjective - Date & Time of Evaluation Date of Evaluation: 09/22/18 Time of Evaluation: 08:02 - Subjective Subjective: Vascular Surgery Dr. Pichardo Pt S&E @bedside. No acute events overnight. Pt reports OOB to chair though no ambulation through hallways. c/o pain to shoulders and low back, likely 2/2 hospital bed. denies F/C, N/V. tolerating diet. pain controlled. Objective - Vital Signs/Intake and Output Vital Signs (last 24 hours): Temp Pulse Resp BP Pulse Ox 100.0 F H 86 20 122/70 95 09/22/18 04:57 09/22/18 04:57 09/22/18 04:57 09/22/18 04:57 09/22/18 04:57 - Medications Medications: Current Medications Amlodipine Besylate (Norvasc) 5 mg PO DAILY [facility] Last Admin: 09/21/18 09:27 Dose: 5 mg Docusate Sodium (Colace) 100 mg PO BID [facility] Last Admin: 09/21/18 17:36 Dose: 100 mg Folic Acid (Folic Acid) 1 mg PO DAILY [facility] Last Admin: 09/21/18 09:26 Dose: 1 mg Hydromorphone HCl (Dilaudid) 0.5 mg IVP Q5M PRN PRN Reason: Pain, severe (8-10) Last Admin: 09/19/18 14:05 Dose: 0.5 mg Heparin Sodium/Sodium Chloride (Heparin 57589 Units/250ml 1/2 Normal Saline) 25,000 units in 250 mls @ 11.186 mls/hr IV .[id number] PRN; Protocol PRN Reason: PROTOCOL Last Admin: 09/21/18 13:32 Dose: 18 units/kg/hr, 11.186 mls/hr Losartan Potassium (Cozaar) 25 mg PO DAILY [facility] Last Admin: 09/21/18 09:26 Dose: 25 mg Morphine Sulfate (Morphine) 2 mg IVP Q4 PRN PRN Reason: Pain, severe (8-10) Last Admin: 09/19/18 22:30 Dose: 2 mg Oxycodone/Acetaminophen (Percocet 5/325 Mg Tab) 1 tab PO Q6H PRN PRN Reason: Pain, moderate (4-7) Stop: 09/22/18 14:40 Last Admin: 09/21/18 14:31 Dose: 1 tab Saliva Substitute (First Magic Mouthwash) 5 ml PO TID [facility] Last Admin: 09/21/18 17:37 Dose: 5 ml Trazodone HCl (Desyrel) 50 mg PO HS [facility] Last Admin: 09/21/18 21:27 Dose: 50 mg - Labs Labs: 09/21/18 05:49 09/21/18 05:49 PT 14.2 SECONDS (9.7-12.2) H 09/21/18 05:49 INR 1.3 09/21/18 05:49 APTT 58 SECONDS (21-34) H D 09/21/18 05:49 - Constitutional Appears: Non-toxic, No Acute Distress - Head Exam Head Exam: NORMAL INSPECTION - Eye Exam Eye Exam: Normal appearance - ENT Exam ENT Exam: Mucous Membranes Moist - Respiratory Exam Respiratory Exam: NORMAL BREATHING PATTERN. absent: Accessory Muscle Use, Respiratory Distress - Cardiovascular Exam Cardiovascular Exam: REGULAR RHYTHM. absent: Bradycardia, Tachycardia - GI/Abdominal Exam GI & Abdominal Exam: Soft. absent: Distended, Tenderness - Extremities Exam Extremities Exam: Normal Capillary Refill. absent: Tenderness Additional comments: b/l pressure dressings in place. no hematoma noted. dopplerable B/L DP/PT. B/L LE warm - Neurological Exam Neurological Exam: Alert, Awake, Oriented x3 - Psychiatric Exam Psychiatric exam: Normal Affect, Normal Mood - Skin Skin Exam: Dry, Intact, Normal Color, Warm Assessment and Plan - Assessment and Plan (Free Text) Assessment: 72 y/o F w/ B/L LE embolic occlusive disease, POD#3 s/p bilateral trans-femoral embolectomy w/ balloon angioplasty and thrombolysis of left anterior tibial and left peroneal. Plan: - cont hep gtt - will need transition to PO anticoagulation - cont vascular checks - PT eval and treat - encourage OOB to chair/Amb/IS use Pt discussed w/ Dr. Kylee Cox DO PGY3
[2018-09-22 08:30] LABS: HEMOGLOBIN 10.4 g/dL (11.0-16.0); MEAN CELL VOLUME 84.2 fL (81.0-99.0); MEAN CORPUSCULAR HEMOGLOBIN 28.4 pg (27.0-31.0); MEAN CORPUSCULAR HGB CONC 33.7 g/dL (33.0-37.0); MEAN PLATELET VOLUME 8.1 fL (7.2-11.7); RBC 3.67 Mil/uL (3.80-5.20); RED CELL DISTRIBUTION WIDTH 17.2 % (11.5-14.5); WHITE BLOOD COUNT 9.4 K/uL (4.8-10.8)
[2018-09-22 08:47] LABS: ALB/GLOB RATIO 1.2 (1.0-2.1); ALBUMIN 3.3 g/dL (3.5-5.0); ALT/SGPT 17 U/L (9-52); AST/SGOT 31 U/L (14-36); BLOOD UREA NITROGEN 11 mg/dL (7-17); CALCIUM 8.9 mg/dl (8.6-10.4); GFR NON-AFRICAN AMERICAN > 60
[2018-09-22] MEDS: Mag&Al/Simet/Diphen/Lido 237 ML KIT PO SCH ×3 (10:10→17:22)
--- NOTE | 2018-09-22 10:17 | CP.PCM.PN ---
Subjective - Date & Time of Evaluation Date of Evaluation: 09/22/18 Time of Evaluation: 09:30 - Subjective Subjective: f/u reflux, anemia Covering Dr Eason Denies Cp, SOB, LOERA, cough, SZ, abdom pain, RB, melena. + constipation Objective - Vital Signs/Intake and Output Vital Signs (last 24 hours): Temp Pulse Resp BP Pulse Ox 99.6 F 80 20 133/79 95 09/22/18 07:00 09/22/18 07:00 09/22/18 07:00 09/22/18 07:00 09/22/18 07:00 - Medications Medications: Current Medications Amlodipine Besylate (Norvasc) 5 mg PO DAILY [facility] Last Admin: 09/22/18 10:09 Dose: 5 mg Docusate Sodium (Colace) 100 mg PO BID [facility] Last Admin: 09/22/18 10:10 Dose: 100 mg Folic Acid (Folic Acid) 1 mg PO DAILY [facility] Last Admin: 09/22/18 10:10 Dose: 1 mg Hydromorphone HCl (Dilaudid) 0.5 mg IVP Q5M PRN PRN Reason: Pain, severe (8-10) Last Admin: 09/19/18 14:05 Dose: 0.5 mg Losartan Potassium (Cozaar) 25 mg PO DAILY [facility] Last Admin: 09/22/18 10:10 Dose: 25 mg Morphine Sulfate (Morphine) 2 mg IVP Q4 PRN PRN Reason: Pain, severe (8-10) Last Admin: 09/19/18 22:30 Dose: 2 mg Oxycodone/Acetaminophen (Percocet 5/325 Mg Tab) 1 tab PO Q6H PRN PRN Reason: Pain, moderate (4-7) Stop: 09/22/18 14:40 Last Admin: 09/21/18 14:31 Dose: 1 tab Saliva Substitute (First Magic Mouthwash) 5 ml PO TID [facility] Last Admin: 09/22/18 10:10 Dose: 5 ml Trazodone HCl (Desyrel) 50 mg PO HS [facility] Last Admin: 09/21/18 21:27 Dose: 50 mg - Labs Labs: 09/22/18 08:10 09/22/18 08:10 PT 14.2 SECONDS (9.7-12.2) H 02/02/19 05:49 INR 1.3 09/21/18 05:49 APTT 65 SECONDS (21-34) H D 09/22/18 08:10 - Constitutional Appears: Well - Respiratory Exam Respiratory Exam: Clear to Ausculation Bilateral - Cardiovascular Exam Cardiovascular Exam: RRR - GI/Abdominal Exam GI & Abdominal Exam: Soft, Normal Bowel Sounds. absent: Tenderness, Mass - Neurological Exam Neurological Exam: Alert, Awake, Oriented x3 Assessment and Plan (1) Dilated pancreatic duct Status: Acute (2) Reflux esophagitis Status: Acute (3) HTN (hypertension) Status: Acute (4) Anemia Status: Acute (5) Constipation Status: Acute
--- NOTE | 2018-09-22 13:19 | CP.PCM.PN ---
Subjective - Date & Time of Evaluation Date of Evaluation: 09/21/18 Time of Evaluation: 13:19 - Subjective Subjective: Patient this morning was doing well. Less pain in the leg noted. She did not have any chest pain. Eating well. Able to sit up and stand up. Patient was being transferred to floor. Vital signs stable. She is currently on heparin drip We will continue to monitor the hemoglobin. Repeat the hemoglobin in the morning. We will follow the patient Objective - Vital Signs/Intake and Output Vital Signs (last 24 hours): Temp Pulse Resp BP Pulse Ox 99.6 F 80 20 133/79 95 09/22/18 07:00 09/22/18 07:00 09/22/18 07:00 09/22/18 07:00 09/22/18 07:00 - Medications Medications: Current Medications Amlodipine Besylate (Norvasc) 5 mg PO DAILY [facility] Last Admin: 09/22/18 10:09 Dose: 5 mg Docusate Sodium (Colace) 100 mg PO BID [facility] Last Admin: 09/22/18 10:10 Dose: 100 mg Folic Acid (Folic Acid) 1 mg PO DAILY [facility] Last Admin: 09/22/18 10:10 Dose: 1 mg Hydromorphone HCl (Dilaudid) 0.5 mg IVP Q5M PRN PRN Reason: Pain, severe (8-10) Last Admin: 09/19/18 14:05 Dose: 0.5 mg Losartan Potassium (Cozaar) 25 mg PO DAILY [facility] Last Admin: 09/22/18 10:10 Dose: 25 mg Oxycodone/Acetaminophen (Percocet 5/325 Mg Tab) 1 tab PO Q6H PRN PRN Reason: Pain, moderate (4-7) Stop: 09/22/18 14:40 Last Admin: 09/21/18 14:31 Dose: 1 tab Saliva Substitute (First Magic Mouthwash) 5 ml PO TID [facility] Last Admin: 09/22/18 10:10 Dose: 5 ml Trazodone HCl (Desyrel) 50 mg PO HS [facility] Last Admin: 09/21/18 21:27 Dose: 50 mg - Labs Labs: 09/22/18 08:10 09/22/18 08:10 PT 14.2 SECONDS (9.7-12.2) H 09/21/18 05:49 INR 1.3 09/21/18 05:49 APTT 65 SECONDS (21-34) H D 09/22/18 08:10
--- NOTE | 2018-09-22 13:31 | CP.PCM.PN ---
Subjective - Date & Time of Evaluation Date of Evaluation: 09/22/18 Time of Evaluation: 13:31 - Subjective Subjective: Patient this morning was receiving the heparin drip. The PTT was therapeutic in the morning. But around 1 PM the heparin was not continued, it was discontinued for at least 1 hour. Patient started having some numbness. Cold. Dorsalis pedis pulse present, but posterior tibial is not palpable. She is feeling somewhat tingling in the feet and toes noted On examination: Vital signs otherwise stable. She is comfortable otherwise. Eating well. I advised the nurse to to resume the heparin drip again. Follow the nomogram. We will repeat the hemoglobin Spoke to the patient's daughter in detail. We will follow the patient Objective - Vital Signs/Intake and Output Vital Signs (last 24 hours): Temp Pulse Resp BP Pulse Ox 99.6 F 80 20 133/79 95 09/22/18 07:00 09/22/18 07:00 09/22/18 07:00 09/22/18 07:00 09/22/18 07:00 - Medications Medications: Current Medications Amlodipine Besylate (Norvasc) 5 mg PO DAILY [facility] Last Admin: 09/22/18 10:09 Dose: 5 mg Docusate Sodium (Colace) 100 mg PO BID [facility] Last Admin: 09/22/18 10:10 Dose: 100 mg Folic Acid (Folic Acid) 1 mg PO DAILY [facility] Last Admin: 09/22/18 10:10 Dose: 1 mg Hydromorphone HCl (Dilaudid) 0.5 mg IVP Q5M PRN PRN Reason: Pain, severe (8-10) Last Admin: 09/19/18 14:05 Dose: 0.5 mg Heparin Sodium/Sodium Chloride (Heparin 58229 Units/250ml 1/2 Normal Saline) 25,000 units in 250 mls @ 11.186 mls/hr IV .[id number] PRN; Protocol PRN Reason: ADJUST RATE PER PROTOCOL Losartan Potassium (Cozaar) 25 mg PO DAILY [facility] Last Admin: 09/22/18 10:10 Dose: 25 mg Oxycodone/Acetaminophen (Percocet 5/325 Mg Tab) 1 tab PO Q6H PRN PRN Reason: Pain, moderate (4-7) Stop: 09/22/18 14:40 Last Admin: 09/21/18 14:31 Dose: 1 tab Saliva Substitute (First Magic Mouthwash) 5 ml PO TID [facility] Last Admin: 09/22/18 10:10 Dose: 5 ml Trazodone HCl (Desyrel) 50 mg PO HS [facility] Last Admin: 09/21/18 21:27 Dose: 50 mg - Labs Labs: 09/22/18 08:10 09/22/18 08:10 PT 14.2 SECONDS (9.7-12.2) H 09/21/18 05:49 INR 1.3 09/21/18 05:49 APTT 65 SECONDS (21-34) H D 09/22/18 08:10
[2018-09-22] MEDS: Heparin25000 units/250ml 1/2NS 25,000 UNITS/250 ML BAG IV PRN (13:52)
[2018-09-22] MEDS: Oxycodone/Acetaminophen 5/325 mg Tab PO PRN (13:58)
[2018-09-23 07:39] LABS: BASO # 0.1 K/uL (0.0-0.2); BASO % 1.3 % (0.0-2.0); EOS # 0.4 K/uL (0.0-0.7); EOS % 4.4 % (0.0-4.0); HEMOGLOBIN 9.8 g/dL (11.0-16.0); LYMPH # 1.2 K/uL (1.0-4.3); LYMPH % 13.3 % (20.0-40.0); MEAN CELL VOLUME 83.5 fL (81.0-99.0); MEAN CORPUSCULAR HEMOGLOBIN 27.6 pg (27.0-31.0); MEAN PLATELET VOLUME 7.9 fL (7.2-11.7); MONO # 0.7 K/uL (0.0-0.8); MONO % 7.7 % (0.0-10.0); NEUT # 6.4 K/uL (1.8-7.0); NEUT % 73.3 % (50.0-75.0); RBC 3.55 Mil/uL (3.80-5.20); RED CELL DISTRIBUTION WIDTH 17.2 % (11.5-14.5); WHITE BLOOD COUNT 8.8 K/uL (4.8-10.8)
[2018-09-23 08:14] LABS: ALB/GLOB RATIO 1.2 (1.0-2.1); ALBUMIN 3.2 g/dL (3.5-5.0); ALT/SGPT 24 U/L (9-52); AST/SGOT 39 U/L (14-36); BLOOD UREA NITROGEN 14 mg/dL (7-17); CALCIUM 8.9 mg/dl (8.6-10.4); GFR NON-AFRICAN AMERICAN > 60
[2018-09-23] MEDS ORDERED: Iodixanol 320 MG/ML 100 ML BOTTLE IV ONE (09:08)
[2018-09-23] MEDS: Heparin25000 units/250ml 1/2NS 25,000 UNITS/250 ML BAG IV PRN ×2 (10:20→20:00)
[2018-09-23] MEDS: Mag&Al/Simet/Diphen/Lido 237 ML KIT PO SCH ×2 (10:29→14:00)
[2018-09-23] MEDS ORDERED: POLYETHYLENE GLYCOL 3350 17 GM/Dose PACKET PO PRN (11:12)
--- NOTE | 2018-09-23 11:14 | CP.PCM.PN ---
Subjective - Date & Time of Evaluation Date of Evaluation: 09/23/18 Time of Evaluation: 11:10 - Subjective Subjective: c/o constipation Objective - Vital Signs/Intake and Output Vital Signs (last 24 hours): Temp Pulse Resp BP Pulse Ox 98.2 F 71 18 122/74 100 09/23/18 08:00 09/23/18 08:00 09/23/18 08:00 09/23/18 08:00 09/23/18 08:00 Intake and Output: 09/23/18 09/23/18 06:59 18:59 Intake Total 250 Balance 250 - Medications Medications: Current Medications Amlodipine Besylate (Norvasc) 5 mg PO DAILY [facility] Last Admin: 09/23/18 10:02 Dose: 5 mg Docusate Sodium (Colace) 100 mg PO BID [facility] Last Admin: 09/23/18 10:02 Dose: 100 mg Folic Acid (Folic Acid) 1 mg PO DAILY [facility] Last Admin: 09/23/18 10:02 Dose: 1 mg Heparin Sodium/Sodium Chloride (Heparin 18942 Units/250ml 1/2 Normal Saline) 25,000 units in 250 mls @ 11.186 mls/hr IV .[id number] PRN; Protocol PRN Reason: ADJUST RATE PER PROTOCOL Last Admin: 09/23/18 10:20 Dose: 18 units/kg/hr, 11.186 mls/hr Losartan Potassium (Cozaar) 25 mg PO DAILY [facility] Last Admin: 09/23/18 10:03 Dose: 25 mg Saliva Substitute (First Magic Mouthwash) 5 ml PO TID [facility] Last Admin: 09/23/18 10:29 Dose: 5 ml Trazodone HCl (Desyrel) 50 mg PO HS [facility] Last Admin: 09/22/18 21:46 Dose: 50 mg - Labs Labs: 09/23/18 07:29 09/23/18 07:29 PT 14.2 SECONDS (9.7-12.2) H 09/21/18 05:49 INR 1.3 09/21/18 05:49 APTT 64 SECONDS (21-34) H 09/23/18 07:29 - Constitutional Appears: No Acute Distress - Head Exam Head Exam: ATRAUMATIC, NORMOCEPHALIC - Respiratory Exam Respiratory Exam: NORMAL BREATHING PATTERN - Cardiovascular Exam Cardiovascular Exam: REGULAR RHYTHM - GI/Abdominal Exam GI & Abdominal Exam: Soft, Normal Bowel Sounds. absent: Tenderness Assessment and Plan (1) Reflux esophagitis Assessment & Plan: continue supportive care Status: Acute (2) Dilated pancreatic duct Assessment & Plan: MRCP/EUS when clinically stable. No acute pathology Status: Acute (3) Constipation Assessment & Plan: Colace and MIralox prn Status: Acute
[2018-09-23] MEDS ORDERED: Propofol 10 mg/ml Inj (20 ML) ONE (12:06)
[2018-09-23] MEDS ORDERED: Midazolam 2 MG/2 ML VIAL ONE (12:06)
[2018-09-23] MEDS ORDERED: Thrombin Topical 20,000 Intl Units Spray Kit TOP ONE (12:11)
[2018-09-23] MEDS ORDERED: HEPARIN-NS 5,000 UNITS/500 ML 10,000 UNIT/1,000 ML BAG IV ONE (12:11)
[2018-09-23] MEDS ORDERED: ceFAZolin 1 gm in NS 1 GM/100 ML BAG IVPB ONE (12:11)
[2018-09-23] MEDS ORDERED: Iodixanol 320 MG/ML 200 ML BOTTLE IV ONE (12:12)
[2018-09-23] MEDS ORDERED: HEPARIN-NS 5,000 UNITS/500 ML 5,000 UNIT/500 ML BAG IV ONE (15:27)
[2018-09-23] MEDS ORDERED: Iodixanol 320 mg/ml 150 ml Bottle IV ONE (15:58)
--- NOTE | 2018-09-23 17:17 | PCM.SURG1 ---
Surgeon's Initial Post Op Note - Surgeon's Notes Surgeon: Dr. Pichardo Policy Cancellation Clerk: Dr. Strickland PGY-3 Type of Anesthesia: General Endo Pre-Operative Diagnosis: Peripheral arterial disease Operative Findings: See operative report Post-Operative Diagnosis: Same Operation Performed: 1) Left Peripheral Angiography. 2) Mechanical Thromobolysis using power pulse angiojet. 3) Pathway atherectomy of posterior tibial & peroneal arteries. 4) Balloon Angioplasty of posterior tibial & peroneal arteries Specimen/Specimens Removed: none Estimated Blood Loss: EBL {In ML}: 100 Blood Products Given: N/A Drains Used: No Drains Post-Op Condition: Good Date of Surgery/Procedure: 09/23/18 Time of Surgery/Procedure: 17:18
[2018-09-23 18:43] LABS: INR 1.2; PROTHROMBIN TIME 12.9 SECONDS (9.7-12.2)
[2018-09-23] MEDS: HYDROmorphone 0.5 mg/0.5 ml ISec IVP PRN ×2 (19:00→19:20)
[2018-09-23] MEDS: Oxycodone/Acetaminophen 5/325 mg Tab PO PRN (23:43)
--- NOTE | 2018-09-23 23:49 | CARD ---
APPROVED REPORT Date of service: 09/18/2018 EKG Measurement Heart [id number] <Conclusion> Sinus bradycardia with sinus arrhythmia Cannot rule out Anterior infarct, age undetermined Abnormal ECG
[2018-09-24] MEDS: Oxycodone/Acetaminophen 5/325 mg Tab PO PRN ×2 (03:31→11:23)
[2018-09-24 05:40] LABS: BASO # 0.1 K/uL (0.0-0.2); BASO % 0.7 % (0.0-2.0); EOS # 0.1 K/uL (0.0-0.7); EOS % 0.6 % (0.0-4.0); HEMOGLOBIN 9.4 g/dL (11.0-16.0); LYMPH # 1.2 K/uL (1.0-4.3); LYMPH % 8.4 % (20.0-40.0); MEAN CELL VOLUME 83.5 fL (81.0-99.0); MEAN CORPUSCULAR HEMOGLOBIN 27.7 pg (27.0-31.0); MEAN CORPUSCULAR HGB CONC 33.2 g/dL (33.0-37.0); MEAN PLATELET VOLUME 7.6 fL (7.2-11.7); MONO # 1.2 K/uL (0.0-0.8); MONO % 8.4 % (0.0-10.0); NEUT # 11.5 K/uL (1.8-7.0); NEUT % 81.9 % (50.0-75.0); PLATELET COUNT 609 K/uL (130-400); RED CELL DISTRIBUTION WIDTH 17.4 % (11.5-14.5); WHITE BLOOD COUNT 14.1 K/uL (4.8-10.8)
[2018-09-24 05:45] LABS: INR 1.1; PROTHROMBIN TIME 12.4 SECONDS (9.7-12.2)
[2018-09-24 05:59] LABS: BLOOD UREA NITROGEN 17 mg/dL (7-17); CALCIUM 8.9 mg/dl (8.6-10.4); GFR NON-AFRICAN AMERICAN > 60
--- NOTE | 2018-09-24 06:13 | OP ---
PROCEDURE DATE: 09/23/2018 PREOPERATIVE DIAGNOSIS: Thrombosis, left popliteal artery. POSTOPERATIVE DIAGNOSIS: Thrombosis, left popliteal artery. PROCEDURE CARRIED OUT: Left femoral angiogram; mechanical thrombolysis using the PowerPulse AngioJet device of the popliteal and tibial vessels, we used two sizes of 6 and 4, then Pathway atherectomy of the posterior tibial and peroneal arteries; and then balloon angioplasty of the posterior tibial and peroneal arteries using 2.5 balloon. SURGEON: Zak Pichardo Jr., MD IT DISASTER RECOVERY MANAGER: Rita Strickland DO ANESTHESIOLOGIST: Mr. Morton INDICATION FOR PROCEDURE: The patient is a 72-year-old woman with a history of coagulopathy, previous interventions on right leg many years ago, recent interventions a few days ago on both groins. She now has increasing pain in the leg and there was of a popliteal pulse that had been achieved after the previous embolectomy. OPERATIVE FINDINGS: Initial angiogram showed an abrupt cut off in the distal popliteal artery, approximately at the same location in the previous thrombosis. Below this, we can only see remnants of the posterior tibial artery and anterior tibial artery at the ankle as well as severely diseased peroneal artery. After the diagnostic angiogram had been carried out, a 7-[place] sheath was seated percutaneously via the previous cut down in the groin, and then a Glidewire was used to go through the peroneal artery. We initially used the PowerPulse AngioJet device andlysed slowly for appropriate period of time, fully heparinized the patient and used this number of times. This resulted in marked improvement in flow in the popliteal region and flow down at the peroneal. We then took a smaller PowerPulse device before and went down into the vessels with this. The final result, however, was not satisfactory as there still was impairment in flow and only through the peroneal. We then made multiple attempts to cannulate the anterior tibial artery which was unsuccessful. We were able to cannulate the posterior tibial artery with an 0.014 wire, passed this down to the ankle and then go over this with the atherectomy device, and then went also into the peroneal. We theninflated the balloon. I was quite happy with the result of this which showed flow into all these vessels. We then took additional films proximally. These showed that there is no thrombosis or clot formation proximally. At the end of the procedure, we did not have flow into the foot yet that we can hear with a Doppler, but we had a easily palpable popliteal pulse. The arteriotomy was closed with a suture, and the groin was closed with sutures. Blood loss for the procedure was approximately 250 to 300 mL. No transfusion were given. OPERATION: Angiogram, mechanical thrombolysis using the PowerPulse AngioJet device with the popliteal and peroneal arteries. Then, we used an atherectomy of the posterior tibial and peroneal arteries and balloon angioplasty in the same manner. Zak Pichardo Jr., MD MTDD
[2018-09-24 06:23] LABS: BANDS 1 % (0-2); EOSINOPHIL 1 % (0-4); LYMPHOCYTE 9 % (20-40); MONOCYTE 5 % (0-10); NEUTROPHIL 84 % (50-75); PLATELET ESTIMATE NORMAL (NORMAL); TOTAL CELLS COUNTED 100
[2018-09-24] MEDS: Mag&Al/Simet/Diphen/Lido 237 ML KIT PO SCH ×3 (09:37→19:50)
--- NOTE | 2018-09-24 11:23 | CP.PCM.PN ---
Subjective - Date & Time of Evaluation Date of Evaluation: 09/24/18 Time of Evaluation: 11:22 - Subjective Subjective: No new complaints Objective - Vital Signs/Intake and Output Vital Signs (last 24 hours): Temp Pulse Resp BP Pulse Ox 98.1 F 95 H 14 163/73 H 95 09/24/18 08:00 09/24/18 11:01 09/24/18 11:01 09/24/18 11:01 09/24/18 11:01 Intake and Output: 09/24/18 09/24/18 06:59 18:59 Intake Total 343.0 296.5 Output Total 750 270 Balance -407.0 26.5 - Medications Medications: Current Medications Amlodipine Besylate (Norvasc) 5 mg PO DAILY [facility] Last Admin: 09/24/18 09:36 Dose: 5 mg Docusate Sodium (Colace) 100 mg PO BID [facility] Last Admin: 09/24/18 09:36 Dose: 100 mg Folic Acid (Folic Acid) 1 mg PO DAILY [facility] Last Admin: 09/24/18 09:36 Dose: 1 mg Hydromorphone HCl (Dilaudid) 0.5 mg IVP Q10M PRN PRN Reason: Pain, moderate (4-7) Last Admin: 09/23/18 19:20 Dose: 0.5 mg Heparin Sodium/Sodium Chloride (Heparin 78466 Units/250ml 1/2 Normal Saline) 25,000 units in 250 mls @ 11.186 mls/hr IV .[id number] PRN; Protocol PRN Reason: ADJUST RATE PER PROTOCOL Last Titration: 09/23/18 21:30 Dose: 15 units/kg/hr, 9.321 mls/hr Losartan Potassium (Cozaar) 25 mg PO DAILY [facility] Last Admin: 09/24/18 09:36 Dose: 25 mg Morphine Sulfate (Morphine) 2 mg IVP Q4 PRN PRN Reason: Pain, severe (8-10) Last Admin: 09/24/18 10:21 Dose: 2 mg Oxycodone/Acetaminophen (Percocet 5/325 Mg Tab) 1 tab PO Q4H PRN PRN Reason: Pain, moderate (4-7) Stop: 09/26/18 17:22 Last Admin: 09/24/18 03:31 Dose: 1 tab Polyethylene Glycol (Miralax) 17 gm PO HS PRN PRN Reason: Constipation Saliva Substitute (First Magic Mouthwash) 5 ml PO TID [facility] Last Admin: 09/24/18 09:37 Dose: Not Given Trazodone HCl (Desyrel) 50 mg PO [facility] Last Admin: 09/23/18 22:23 Dose: 50 mg - Labs Labs: 09/24/18 05:34 09/24/18 05:34 PT 12.4 SECONDS (9.7-12.2) H 09/24/18 05:36 INR 1.1 09/24/18 05:36 APTT 45 SECONDS (21-34) H D 09/24/18 05:36 - Constitutional Appears: No Acute Distress - Head Exam Head Exam: ATRAUMATIC, NORMOCEPHALIC - Respiratory Exam Respiratory Exam: NORMAL BREATHING PATTERN - Cardiovascular Exam Cardiovascular Exam: REGULAR RHYTHM, +S1 - GI/Abdominal Exam GI & Abdominal Exam: Soft, Normal Bowel Sounds. absent: Tenderness, Mass, Rebound Assessment and Plan (1) Reflux esophagitis Assessment & Plan: Continue PPI or H2B Status: Acute (2) Dilated pancreatic duct Status: Acute (3) Constipation Assessment & Plan: Continue supportive care Status: Acute
--- NOTE | 2018-09-24 13:02 | CP.PCM.PN ---
Subjective - Date & Time of Evaluation Date of Evaluation: 09/24/18 Time of Evaluation: 12:59 - Subjective Subjective: detailed discussion with patient , son, and daughter regarding condition of left leg- now overtly ischemic and painful. Option of emergency bypass reviewed. Unlikely to be successful give present circumstances of coagulopathy, multiple thrombotic events. likelihood of amputation is known by all follow and allow for demarcation Objective - Vital Signs/Intake and Output Vital Signs (last 24 hours): Temp Pulse Resp BP Pulse Ox 99.2 F 101 H 47 H 138/81 100 09/24/18 12:00 09/24/18 12:02 09/24/18 12:02 09/24/18 12:02 09/24/18 12:02 Intake and Output: 09/24/18 09/24/18 06:59 18:59 Intake Total 343.0 305.8 Output Total 750 320 Balance -407.0 -14.2 - Medications Medications: Current Medications Amlodipine Besylate (Norvasc) 5 mg PO DAILY [facility] Last Admin: 09/24/18 09:36 Dose: 5 mg Docusate Sodium (Colace) 100 mg PO BID [facility] Last Admin: 09/24/18 09:36 Dose: 100 mg Folic Acid (Folic Acid) 1 mg PO DAILY [facility] Last Admin: 09/24/18 09:36 Dose: 1 mg Hydromorphone HCl (Dilaudid) 0.5 mg IVP Q10M PRN PRN Reason: Pain, moderate (4-7) Last Admin: 09/23/18 19:20 Dose: 0.5 mg Hydromorphone HCl (Dilaudid) 2 mg IVP Q2H PRN PRN Reason: Severe pain 7-10 Last Admin: 09/24/18 12:01 Dose: 2 mg Heparin Sodium/Sodium Chloride (Heparin 15553 Units/250ml 1/2 Normal Saline) 25,000 units in 250 mls @ 11.186 mls/hr IV .[id number] PRN; Protocol PRN Reason: ADJUST RATE PER PROTOCOL Last Titration: 09/23/18 21:30 Dose: 15 units/kg/hr, 9.321 mls/hr Losartan Potassium (Cozaar) 25 mg PO DAILY [facility] Last Admin: 09/24/18 09:36 Dose: 25 mg Oxycodone/Acetaminophen (Percocet 5/325 Mg Tab) 1 tab PO Q4H PRN PRN Reason: Pain, moderate (4-7) Stop: 09/26/18 17:22 Last Admin: 09/24/18 11:23 Dose: 1 tab Polyethylene Glycol (Miralax) 17 gm PO HS PRN PRN Reason: Constipation Saliva Substitute (First Magic Mouthwash) 5 ml PO TID [facility] Last Admin: 09/24/18 09:37 Dose: Not Given Trazodone HCl (Desyrel) 50 mg PO [facility] Last Admin: 09/23/18 22:23 Dose: 50 mg - Labs Labs: 09/24/18 05:34 09/24/18 05:34 PT 12.4 SECONDS (9.7-12.2) H 09/24/18 05:36 INR 1.1 09/24/18 05:36 APTT 45 SECONDS (21-34) H D 09/24/18 05:36
--- NOTE | 2018-09-24 13:06 | CP.PCM.PN ---
Subjective - Date & Time of Evaluation Date of Evaluation: 09/24/18 Time of Evaluation: 06:30 - Subjective Subjective: Vascular Surgery: Dr. Pichardo Pt seen and examined. s/p angio with mechanical thrombolysis and angioplasty; POD#1. States she feels ok but has pain Objective - Vital Signs/Intake and Output Vital Signs (last 24 hours): Temp Pulse Resp BP Pulse Ox 99.2 F 101 H 47 H 138/81 100 09/24/18 12:00 09/24/18 12:02 09/24/18 12:02 09/24/18 12:02 09/24/18 12:02 Intake and Output: 09/24/18 09/24/18 06:59 18:59 Intake Total 343.0 305.8 Output Total 750 320 Balance -407.0 -14.2 - Medications Medications: Current Medications Amlodipine Besylate (Norvasc) 5 mg PO DAILY [facility] Last Admin: 09/24/18 09:36 Dose: 5 mg Docusate Sodium (Colace) 100 mg PO BID [facility] Last Admin: 09/24/18 09:36 Dose: 100 mg Folic Acid (Folic Acid) 1 mg PO DAILY [facility] Last Admin: 09/24/18 09:36 Dose: 1 mg Hydromorphone HCl (Dilaudid) 0.5 mg IVP Q10M PRN PRN Reason: Pain, moderate (4-7) Last Admin: 09/23/18 19:20 Dose: 0.5 mg Hydromorphone HCl (Dilaudid) 2 mg IVP Q2H PRN PRN Reason: Severe pain 7-10 Last Admin: 09/24/18 12:01 Dose: 2 mg Heparin Sodium/Sodium Chloride (Heparin 00065 Units/250ml 1/2 Normal Saline) 25,000 units in 250 mls @ 11.186 mls/hr IV .[id number] PRN; Protocol PRN Reason: ADJUST RATE PER PROTOCOL Last Titration: 09/23/18 21:30 Dose: 15 units/kg/hr, 9.321 mls/hr Losartan Potassium (Cozaar) 25 mg PO DAILY [facility] Last Admin: 09/24/18 09:36 Dose: 25 mg Oxycodone/Acetaminophen (Percocet 5/325 Mg Tab) 1 tab PO Q4H PRN PRN Reason: Pain, moderate (4-7) Stop: 09/26/18 17:22 Last Admin: 09/24/18 11:23 Dose: 1 tab Polyethylene Glycol (Miralax) 17 gm PO HS PRN PRN Reason: Constipation Saliva Substitute (First Magic Mouthwash) 5 ml PO TID [facility] Last Admin: 09/24/18 09:37 Dose: Not Given Trazodone HCl (Desyrel) 50 mg PO HS [facility] Last Admin: 09/23/18 22:23 Dose: 50 mg - Labs Labs: 09/24/18 05:34 09/24/18 05:34 PT 12.4 SECONDS (9.7-12.2) H 09/24/18 05:36 INR 1.1 09/24/18 05:36 APTT 45 SECONDS (21-34) H D 09/24/18 05:36
--- NOTE | 2018-09-24 13:15 | CP.PCM.PN ---
Subjective - Date & Time of Evaluation Date of Evaluation: 09/24/18 Time of Evaluation: 13:12 - Subjective Subjective: Patient required repeat LE angiogram, atherectomy and TPA yesterday 09/23/18 but again loss of L. 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 Maintained on heparin GTT Loss of L. foot DP and PT, + L. politeal doppler Apeearance patchy hyperemic changes and mottled coloration R. foot + AT doppler, absent DP + doppler popliteal BP remains high Objective - Vital Signs/Intake and Output Vital Signs (last 24 hours): Temp Pulse Resp BP Pulse Ox 99.2 F 101 H 47 H 138/81 100 09/24/18 12:00 09/24/18 12:02 09/24/18 12:02 09/24/18 12:02 09/24/18 12:02 Intake and Output: 09/24/18 09/24/18 06:59 18:59 Intake Total 343.0 315.1 Output Total 750 380 Balance -407.0 -64.9 - Medications Medications: Current Medications Amlodipine Besylate (Norvasc) 5 mg PO DAILY [facility] Last Admin: 09/24/18 09:36 Dose: 5 mg Docusate Sodium (Colace) 100 mg PO BID [facility] Last Admin: 09/24/18 09:36 Dose: 100 mg Folic Acid (Folic Acid) 1 mg PO DAILY [facility] Last Admin: 09/24/18 09:36 Dose: 1 mg Hydromorphone HCl (Dilaudid) 0.5 mg IVP Q10M PRN PRN Reason: Pain, moderate (4-7) Last Admin: 09/23/18 19:20 Dose: 0.5 mg Hydromorphone HCl (Dilaudid) 2 mg IVP Q2H PRN PRN Reason: Severe pain 7-10 Last Admin: 09/24/18 12:01 Dose: 2 mg Heparin Sodium/Sodium Chloride (Heparin 24669 Units/250ml 1/2 Normal Saline) 25,000 units in 250 mls @ 11.186 mls/hr IV .[id number] PRN; Protocol PRN Reason: ADJUST RATE PER PROTOCOL Last Titration: 09/23/18 21:30 Dose: 15 units/kg/hr, 9.321 mls/hr Losartan Potassium (Cozaar) 25 mg PO DAILY [facility] Last Admin: 09/24/18 09:36 Dose: 25 mg Oxycodone/Acetaminophen (Percocet 5/325 Mg Tab) 1 tab PO Q4H PRN PRN Reason: Pain, moderate (4-7) Stop: 09/26/18 17:22 Last Admin: 09/24/18 11:23 Dose: 1 tab Polyethylene Glycol (Miralax) 17 gm PO HS PRN PRN Reason: Constipation Saliva Substitute (First Magic Mouthwash) 5 ml PO TID [facility] Last Admin: 09/24/18 09:37 Dose: Not Given Trazodone HCl (Desyrel) 50 mg PO HS [facility] Last Admin: 09/23/18 22:23 Dose: 50 mg - Labs Labs: 09/24/18 05:34 09/24/18 05:34 PT 12.4 SECONDS (9.7-12.2) H 09/24/18 05:36 INR 1.1 09/24/18 05:36 APTT 45 SECONDS (21-34) H D 09/24/18 05:36 - Constitutional Appears: No Acute Distress - Head Exam Head Exam: ATRAUMATIC, NORMAL INSPECTION, NORMOCEPHALIC - Eye Exam Eye Exam: EOMI, Normal appearance - ENT Exam ENT Exam: Mucous Membranes Moist, Normal Oropharynx - Respiratory Exam Respiratory Exam: Clear to Ausculation Bilateral. absent: Rhonchi, Wheezes - Cardiovascular Exam Cardiovascular Exam: REGULAR RHYTHM, +S1, +S2. absent: Murmur - GI/Abdominal Exam GI & Abdominal Exam: Soft. absent: Tenderness - Extremities Exam Extremities Exam: absent: Normal Inspection (warm feet B/L : see HP for details) - Neurological Exam Neurological Exam: Alert, Awake, Oriented x3 - Skin Skin Exam: Warm. absent: Normal Color Assessment and Plan - Assessment and Plan (Free Text) Assessment: Patient with hx of RSFA acute trombotic occlusion in 2008 RX with embolectomy and since has been on antiplatelet and coumadin. > Recent need for cessation of anticoagulation due to retroperitoneal bleed and right adrenal hemmorhage Aug 2018 complicated by recurrence of thrombotic occlusion in the LE's. Now s/p Bilateral Transfemoral Embolectomy. Patch closure Right Common Femoral. Balloon Angioplasty Left Anterior Tibial and Left Peroneal. Thrombolysis Left Anterior Tibial and Left Peroneal. Repeat atherectomy and TPA 09/23/18 ---> again loss of L. foot DP and AT pulse for earthmoving labourer again by vascular to re-eval Additional suspicion of pancreatic duct dilation and possibility of renal and splenic infarcts on CT/abdominal imaging Heme w/u done [thrombocytosis, work up showing JEANNINE-2 mutation positive] may be starting Hydrea Rx Plan: Cont heparin GTT -> H/H stable 9.4, PLT 609 Eventual will need to transition into a NOAC or coumadin per HEME/ONC suggestion Monitor for any recurrence of retroperotoneal blled or GI/Abd sx's BP is elevated ECHO: normal LVEF and wall motion On norvasc and cozaar additional norvasc 5 po Hydralazine 25mg PRN for SBP >160 [id number]
[2018-09-24] MEDS ORDERED: Iodixanol 320 mg/ml 150 ml Bottle IV ONE (14:44)
[2018-09-24] MEDS ORDERED: Labetalol 5mg/ml (4ml) IVP STA (15:57)
--- NOTE | 2018-09-24 16:07 | CP.CCUPN ---
CCU Subjective - Physician Review Subjective (Free Text): PGY-1 ICU consult note for Dr Chandler jasso Patient is seen and examined at bedside today. Patient complains of severe pain (8/10) in left lower extremity. Patient states the pain in right leg has improved. Patient states she is very sleepy; patient did not sleep well last night due to pain. Patient denies chest pain, abdominal pain, shortness of breath, nausea or vomiting. Critical Care Time Spent (in minutes): 40 CCU Objective - Vital Signs / Intake & Output Vital Signs (Last 4 hours): Vital Signs Pulse Resp BP Pulse Ox 09/24/18 15:23 90 09/24/18 14:48 101 H 12 179/77 H 99 09/24/18 14:10 96 H 12 184/82 H 100 09/24/18 14:09 105 H 15 185/122 H 100 09/24/18 14:01 108 H 18 184/117 H 100 09/24/18 14:00 98 H 11 L 100 09/24/18 13:34 96 H 13 181/80 H 99 09/24/18 13:09 88 13 189/79 H 96 09/24/18 13:06 89 11 L 192/80 H 99 09/24/18 13:00 89 14 99 Intake and Output (Last 8hrs): Intake & Output 09/24/18 09/24/18 09/24/18 06:59 14:59 22:59 Intake Total 74.4 324.4 9.3 Output Total 400 420 40 Balance -325.6 -95.6 -30.7 Weight 138 lb 12.8 oz Intake: Intake, IV Amount 74.4 74.4 9.3 Left Distal Port Forearm 74.4 Left Forearm 74.4 9.3 Right Wrist 0 0 Oral 250 0 Output: Urine 400 420 40 Urethral (Funez) 400 420 40 Urine, Voided 0 Other: # Bowel Movements 0 0 - Physical Exam Head: Positive for: Atraumatic, Normocephalic Pupils: Positive for: PERRL Extroacular Muscles: Positive for: EOMI Conjunctiva: Positive for: Normal Mouth: Positive for: Moist Mucous Membranes Neck: Positive for: Normal Range of Motion Respiratory/Chest: Positive for: Clear to Auscultation Cardiovascular: Positive for: Regular Rate and Rhythm, Normal S1, S2 Abdomen: Positive for: Normal Bowel Sounds Upper Extremity: Positive for: Normal Inspection. Negative for: Edema Lower Extremity: Positive for: Tenderness (LEft LE ), Other (Doppler pulses noted right DP, PT, no doppler pulses noted on left DP, PT, molten cold left LE) Neurological: Positive for: CN II-XII Intact Skin: Positive for: Warm, Dry Psychiatric: Positive for: Alert, Oriented x 3 - Medications Active Medications: Active Medications Generic Name Dose Route Start Last Admin Trade Name Freq PRN Reason Stop Dose Admin Amlodipine Besylate 5 mg 09/18/18 10:00 09/24/18 09:36 Norvasc PO 5 mg DAILY [facility] Administration Docusate Sodium 100 mg 09/21/18 10:00 09/24/18 09:36 Colace PO 100 mg BID [facility] Administration Folic Acid 1 mg 09/19/18 10:00 09/24/18 09:36 Folic Acid PO 1 mg DAILY [facility] Administration Hydralazine HCl 25 mg 09/24/18 13:18 09/24/18 13:34 Apresoline PO 25 mg Q6H PRN Administration for SBP >160 Hydromorphone HCl 0.5 mg 09/23/18 17:17 09/23/18 19:20 Dilaudid IVP 0.5 mg Q10M PRN Administration Pain, moderate (4-7) Hydromorphone HCl 2 mg 09/24/18 11:51 09/24/18 12:01 Dilaudid IVP 2 mg Q2H PRN Administration Severe pain 7-10 Heparin Sodium/Sodium Chloride 25,000 units in 250 mls @ 11.186 mls/hr 09/22/18 13:29 09/23/18 21:30 Heparin 17999 Units/250ml 1/2 Normal Saline IV 15 units/kg/hr .[id number] PRN 9.321 mls/hr ADJUST RATE PER PROTOCOL Titration Protocol 18 UNITS/KG/HR Losartan Potassium 25 mg 09/18/18 10:00 09/24/18 09:36 Cozaar PO 25 mg DAILY [facility] Administration Oxycodone/Acetaminophen 1 tab 09/23/18 17:21 09/24/18 11:23 Percocet 5/325 Mg Tab PO 09/26/18 17:22 1 tab Q4H PRN Administration Pain, moderate (4-7) Pantoprazole Sodium 40 mg 09/25/18 10:00 Protonix Inj IVP DAILY [facility] Polyethylene Glycol 17 gm 09/23/18 11:12 Miralax PO HS PRN Constipation Saliva Substitute 5 ml 09/21/18 10:00 09/24/18 13:15 First Magic Mouthwash PO Not Given TID [facility] Trazodone HCl 50 mg 09/18/18 22:00 09/23/18 22:23 Desyrel PO 50 mg HS [facility] Administration - Patient Studies Lab Studies: Lab Studies 09/24/18 09/24/18 09/24/18 Range/Units 06:26 05:36 05:34 WBC (4.8-10.8) K/uL RBC (3.80-5.20) Mil/uL Hgb (11.0-16.0) g/dL Hct (34.0-47.0) % MCV (81.0-99.0) fL MCH (27.0-31.0) pg MCHC (33.0-37.0) g/dL RDW (11.5-14.5) % Plt Count (130-400) K/uL MPV (7.2-11.7) fL Neut % (Auto) (50.0-75.0) % Lymph % (Auto) (20.0-40.0) % [place] % (Auto) (0.0-10.0) % Eos % (Auto) (0.0-4.0) % Baso % (Auto) (0.0-2.0) % Neut # (Auto) (1.8-7.0) K/uL Lymph # (Auto) (1.0-4.3) K/uL [place] # (Auto) (0.0-0.8) K/uL Eos # (Auto) (0.0-0.7) K/uL Baso # (Auto) (0.0-0.2) K/uL Neutrophils % (Manual) (50-75) % Band Neutrophils % (0-2) % Lymphocytes % (Manual) (20-40) % Monocytes % (Manual) (0-10) % Eosinophils % (Manual) (0-4) % Platelet Estimate (NORMAL) PT 12.4 H (9.7-12.2) SECONDS INR 1.1 APTT 45 H D (21-34) SECONDS Sodium 136 (132-148) mmol/L Potassium 4.4 (3.6-5.2) mmol/L Chloride 104 (98-107) mmol/L Carbon Dioxide 29 (22-30) mmol/L Anion Gap 7 L (10-20) BUN 17 (7-17) mg/dL Creatinine 0.7 (0.7-1.2) mg/dL Est GFR ( Amer) > 60 Est GFR (Non-Af Amer) > 60 POC Glucose (mg/dL) 146 H (65-110) mg/dL Random Glucose 135 H (65-105) mg/dL Calcium 8.9 (8.6-10.4) mg/dl 09/24/18 09/24/18 09/23/18 Range/Units 05:34 01:25 23:39 WBC 14.1 H D (4.8-10.8) K/uL RBC 3.40 L (3.80-5.20) Mil/uL Hgb 9.4 L (11.0-16.0) g/dL Hct 28.4 L (34.0-47.0) % MCV 83.5 (81.0-99.0) fL MCH 27.7 (27.0-31.0) pg MCHC 33.2 (33.0-37.0) g/dL RDW 17.4 H (11.5-14.5) % Plt Count 609 H (130-400) K/uL MPV 7.6 (7.2-11.7) fL Neut % (Auto) 81.9 H (50.0-75.0) % Lymph % (Auto) 8.4 L (20.0-40.0) % [place] % (Auto) 8.4 (0.0-10.0) % Eos % (Auto) 0.6 (0.0-4.0) % Baso % (Auto) 0.7 (0.0-2.0) % Neut # (Auto) 11.5 H (1.8-7.0) K/uL Lymph # (Auto) 1.2 (1.0-4.3) K/uL [place] # (Auto) 1.2 H (0.0-0.8) K/uL Eos # (Auto) 0.1 (0.0-0.7) K/uL Baso # (Auto) 0.1 (0.0-0.2) K/uL Neutrophils % (Manual) 84 H (50-75) % Band Neutrophils % 1 (0-2) % Lymphocytes % (Manual) 9 L (20-40) % Monocytes % (Manual) 5 (0-10) % Eosinophils % (Manual) 1 (0-4) % Platelet Estimate Normal (NORMAL) PT (9.7-12.2) SECONDS INR APTT 55 H D (21-34) SECONDS Sodium (132-148) mmol/L Potassium (3.6-5.2) mmol/L Chloride (98-107) mmol/L Carbon Dioxide (22-30) mmol/L Anion Gap (10-20) BUN (7-17) mg/dL Creatinine (0.7-1.2) mg/dL Est GFR ( Amer) Est GFR (Non-Af Amer) POC Glucose (mg/dL) 259 H (65-110) mg/dL Random Glucose (65-105) mg/dL Calcium (8.6-10.4) mg/dl 09/23/18 Range/Units 18:18 WBC (4.8-10.8) K/uL RBC (3.80-5.20) Mil/uL Hgb (11.0-16.0) g/dL Hct (34.0-47.0) % MCV (81.0-99.0) fL MCH (27.0-31.0) pg MCHC (33.0-37.0) g/dL RDW (11.5-14.5) % Plt Count (130-400) K/uL MPV (7.2-11.7) fL Neut % (Auto) (50.0-75.0) % Lymph % (Auto) (20.0-40.0) % [place] % (Auto) (0.0-10.0) % Eos % (Auto) (0.0-4.0) % Baso % (Auto) (0.0-2.0) % Neut # (Auto) (1.8-7.0) K/uL Lymph # (Auto) (1.0-4.3) K/uL [place] # (Auto) (0.0-0.8) K/uL Eos # (Auto) (0.0-0.7) K/uL Baso # (Auto) (0.0-0.2) K/uL Neutrophils % (Manual) (50-75) % Band Neutrophils % (0-2) % Lymphocytes % (Manual) (20-40) % Monocytes % (Manual) (0-10) % Eosinophils % (Manual) (0-4) % Platelet Estimate (NORMAL) PT 12.9 H (9.7-12.2) SECONDS INR 1.2 APTT 112 H* D (21-34) SECONDS Sodium (132-148) mmol/L Potassium (3.6-5.2) mmol/L Chloride (98-107) mmol/L Carbon Dioxide (22-30) mmol/L Anion Gap (10-20) BUN (7-17) mg/dL Creatinine (0.7-1.2) mg/dL Est GFR ( Amer) Est GFR (Non-Af Amer) POC Glucose (mg/dL) (65-110) mg/dL Random Glucose (65-105) mg/dL Calcium (8.6-10.4) mg/dl Laboratory Results - last 24 hr 09/23/18 09/23/18 09/24/18 18:18 23:39 01:25 WBC RBC Hgb Hct MCV MCH MCHC RDW Plt Count MPV Neut % (Auto) Lymph % (Auto) [place] % (Auto) Eos % (Auto) Baso % (Auto) Neut # (Auto) Lymph # (Auto) [place] # (Auto) Eos # (Auto) Baso # (Auto) Neutrophils % (Manual) Band Neutrophils % Lymphocytes % (Manual) Monocytes % (Manual) Eosinophils % (Manual) Platelet Estimate PT 12.9 H INR 1.2 APTT 112 H* D 55 H D Sodium Potassium Chloride Carbon Dioxide Anion Gap BUN Creatinine Est GFR ( Amer) Est GFR (Non-Af Amer) POC Glucose (mg/dL) 259 H Random Glucose Calcium 09/24/18 09/24/18 09/24/18 05:34 05:34 05:36 WBC 14.1 H D RBC 3.40 L Hgb 9.4 L Hct 28.4 L MCV 83.5 MCH 27.7 MCHC 33.2 RDW 17.4 H Plt Count 609 H MPV 7.6 Neut % (Auto) 81.9 H Lymph % (Auto) 8.4 L [place] % (Auto) 8.4 Eos % (Auto) 0.6 Baso % (Auto) 0.7 Neut # (Auto) 11.5 H Lymph # (Auto) 1.2 [place] # (Auto) 1.2 H Eos # (Auto) 0.1 Baso # (Auto) 0.1 Neutrophils % (Manual) 84 H Band Neutrophils % 1 Lymphocytes % (Manual) 9 L Monocytes % (Manual) 5 Eosinophils % (Manual) 1 Platelet Estimate Normal PT 12.4 H INR 1.1 APTT 45 H D Sodium 136 Potassium 4.4 Chloride 104 Carbon Dioxide 29 Anion Gap 7 L BUN 17 Creatinine 0.7 Est GFR ( Amer) > 60 Est GFR (Non-Af Amer) > 60 POC Glucose (mg/dL) Random Glucose 135 H Calcium 8.9 09/24/18 06:26 WBC RBC Hgb Hct MCV MCH MCHC RDW Plt Count MPV Neut % (Auto) Lymph % (Auto) [place] % (Auto) Eos % (Auto) Baso % (Auto) Neut # (Auto) Lymph # (Auto) [place] # (Auto) Eos # (Auto) Baso # (Auto) Neutrophils % (Manual) Band Neutrophils % Lymphocytes % (Manual) Monocytes % (Manual) Eosinophils % (Manual) Platelet Estimate PT INR APTT Sodium Potassium Chloride Carbon Dioxide Anion Gap BUN Creatinine Est GFR ( Amer) Est GFR (Non-Af Amer) POC Glucose (mg/dL) 146 H Random Glucose Calcium Critical Care Progress Note - Nutrition Nutrition: Nutrition Category Date Time Status Heart Healthy Diet [DIET] Diets 09/23/18 Dinner Active Assessment/Plan - Assessment and Plan (Free Text) Plan: Patient is a 72 year old female with PMHx of HTN, GERD, HLD, RLE DVT s/p embolectomy in 2008, retroperitoneal bleed, admitted to hospital for occlusion of left popliteal artery. Vascular surgery on case performed b/l femoral embolectomy with patch closure right common fem and balloon angioplasty left ant tibial and left peroneal with thrombolysis left ant tibial and left peroneal, continued on heparin drip transferred to ICU for further management. Further surgical intervention on 09/23 for left popliteal thrombectomy with angiojet. Patient has pulses by doppler in right DP and PT; currently no palpable or dopplerable pulses in left DP or PT. Patient left lower extremity is cold and molten in appearance. Neuro - AAOx3 - no acute issues Cardiac - Continue Heparin dripDVT protocol per surgery - Coag today: 12.4, 1.1, 45 - Hx of HTNcontinue Norvasc and Cozaar - Hydralazine 25mg PRN for HTN Pulm - O2 99% on NC GI - continue colace and Miralax - Heart Healthy Diet - Reflex Esophagitis start Protinix - f/u GI recs Renal - BUN/Cr 17/0.7, continue to monitor - no acute issues Heme - H/H today 9.4/28.4 - plt count 609 - monitor CBC ID - Afebrile - WBC 14.1 today - continue to monitor CBC Vascular - POD #1 s/p Left popliteal thrombectomy - POD #5 s/p b/l femoral embolectomy/thrombectomy 09/19 - Possible amputation per surgery recs - continue Heparin Drip - neurovascular check Q2H - f/u angiography - F/u Surgery recs - Dr Pichardo - possible left leg amputation PPx - Percocet and Dilaudidppx for pain - DVT ppxon heparin drip - GI ppx- on Protonix Plan discussed with Dr. Chandler Teixeira, PGY-1 - Date & Time Date: 09/24/18 Time: 10:35
--- NOTE | 2018-09-24 16:17 | RAD ---
PROCEDURE: HISTORY: As above COMPARISON: None TECHNIQUE: Total fluoroscopic time utilized during the procedure: 1487.2 seconds ; 69.18 mGy FINDINGS: Submitted images from the current procedure: 61 Please refer to the physician's notes performing the procedure. IMPRESSION: Less than 1 hour fluoroscopic time utilized during performance of the procedure
[2018-09-24] MEDS: Heparin25000 units/250ml 1/2NS 25,000 UNITS/250 ML BAG IV PRN (23:10)
[2018-09-25 06:14] LABS: BASO # 0.1 K/uL (0.0-0.2); BASO % 0.9 % (0.0-2.0); EOS # 0.2 K/uL (0.0-0.7); EOS % 1.6 % (0.0-4.0); HEMOGLOBIN 10.2 g/dL (11.0-16.0); LYMPH # 1.3 K/uL (1.0-4.3); LYMPH % 9.6 % (20.0-40.0); MEAN CELL VOLUME 85.1 fL (81.0-99.0); MEAN CORPUSCULAR HEMOGLOBIN 28.1 pg (27.0-31.0); MEAN CORPUSCULAR HGB CONC 33.1 g/dL (33.0-37.0); MEAN PLATELET VOLUME 7.5 fL (7.2-11.7); MONO # 0.9 K/uL (0.0-0.8); MONO % 6.7 % (0.0-10.0); NEUT # 10.9 K/uL (1.8-7.0); NEUT % 81.2 % (50.0-75.0); NRBC % 0.1 % (0.0-2.0); PLATELET COUNT 622 K/uL (130-400); RBC 3.64 Mil/uL (3.80-5.20); RED CELL DISTRIBUTION WIDTH 17.7 % (11.5-14.5); WHITE BLOOD COUNT 13.5 K/uL (4.8-10.8)
[2018-09-25 06:25] LABS: INR 1.2; PROTHROMBIN TIME 12.6 SECONDS (9.7-12.2)
[2018-09-25 06:32] LABS: ALB/GLOB RATIO 1.2 (1.0-2.1); ALBUMIN 3.6 g/dL (3.5-5.0); ALT/SGPT 29 U/L (9-52); AST/SGOT 42 U/L (14-36); BLOOD UREA NITROGEN 14 mg/dL (7-17); CALCIUM 8.8 mg/dl (8.6-10.4); GFR NON-AFRICAN AMERICAN > 60
--- NOTE | 2018-09-25 09:38 | CP.PCM.PN ---
Subjective - Date & Time of Evaluation Date of Evaluation: 09/25/18 Time of Evaluation: 09:37 - Subjective Subjective: Events related to LE's noted. Pain persists. No abdominal c/o Objective - Vital Signs/Intake and Output Vital Signs (last 24 hours): Temp Pulse Resp BP Pulse Ox 98.8 F 100 H 20 166/69 H 98 09/25/18 04:00 09/25/18 07:01 09/25/18 07:01 09/25/18 07:01 09/25/18 07:01 Intake and Output: 09/25/18 09/25/18 06:59 18:59 Intake Total 581.6 9.3 Output Total 655 45 Balance -73.4 -35.7 - Medications Medications: Current Medications Amlodipine Besylate (Norvasc) 5 mg PO DAILY [facility] Last Admin: 09/24/18 09:36 Dose: 5 mg Docusate Sodium (Colace) 100 mg PO BID [facility] Last Admin: 09/24/18 17:46 Dose: 100 mg Folic Acid (Folic Acid) 1 mg PO DAILY [facility] Last Admin: 09/24/18 09:36 Dose: 1 mg Hydralazine HCl (Apresoline) 25 mg PO Q6H PRN PRN Reason: for SBP >160 Last Admin: 09/24/18 21:24 Dose: 25 mg Hydromorphone HCl (Dilaudid) 0.5 mg IVP Q10M PRN PRN Reason: Pain, moderate (4-7) Last Admin: 09/23/18 19:20 Dose: 0.5 mg Hydromorphone HCl (Dilaudid) 2 mg IVP Q2H PRN PRN Reason: Severe pain 7-10 Last Admin: 09/25/18 04:30 Dose: 2 mg Heparin Sodium/Sodium Chloride (Heparin 98186 Units/250ml 1/2 Normal Saline) 25,000 units in 250 mls @ 11.186 mls/hr IV .[id number] PRN; Protocol PRN Reason: ADJUST RATE PER PROTOCOL Last Admin: 09/24/18 23:10 Dose: 15 units/kg/hr, 9.321 mls/hr Losartan Potassium (Cozaar) 25 mg PO DAILY [facility] Last Admin: 09/24/18 09:36 Dose: 25 mg Ondansetron HCl (Zofran Inj) 4 mg IVP Q6H PRN PRN Reason: Nausea/Vomiting Last Admin: 09/25/18 04:36 Dose: 4 mg Oxycodone/Acetaminophen (Percocet 5/325 Mg Tab) 1 tab PO Q4H PRN PRN Reason: Pain, moderate (4-7) Stop: 09/26/18 17:22 Last Admin: 09/24/18 11:23 Dose: 1 tab Pantoprazole Sodium (Protonix Inj) 40 mg IVP DAILY [facility] Polyethylene Glycol (Miralax) 17 gm PO HS PRN PRN Reason: Constipation Saliva Substitute (First Magic Mouthwash) 5 ml PO TID [facility] Last Admin: 09/24/18 19:50 Dose: Not Given Trazodone HCl (Desyrel) 50 mg PO HS [facility] Last Admin: 09/24/18 21:24 Dose: 50 mg - Labs Labs: 09/25/18 06:08 09/25/18 06:07 PT 12.6 SECONDS (9.7-12.2) H 09/25/18 06:08 INR 1.2 09/25/18 06:08 APTT 50 SECONDS (21-34) H D 09/25/18 06:08 - Constitutional Appears: No Acute Distress - Head Exam Head Exam: ATRAUMATIC, NORMOCEPHALIC - Respiratory Exam Respiratory Exam: NORMAL BREATHING PATTERN - Cardiovascular Exam Cardiovascular Exam: REGULAR RHYTHM, +S1 - GI/Abdominal Exam GI & Abdominal Exam: Soft, Normal Bowel Sounds. absent: Tenderness Assessment and Plan (1) Reflux esophagitis Status: Chronic (2) Dilated pancreatic duct Assessment & Plan: Further work up when stable as recommended. No active acute pancreatic pathology Status: Acute (3) Constipation Assessment & Plan: Continue supportive care. Will follow with you as needed. Status: Acute
--- NOTE | 2018-09-25 09:43 | CP.PCM.PN ---
Subjective - Date & Time of Evaluation Date of Evaluation: 09/25/18 Time of Evaluation: 09:40 - Subjective Subjective: + pain L. foot starting to inc mottling and demarcation Mild pain related HTN no CP, fevers or chills Objective - Vital Signs/Intake and Output Vital Signs (last 24 hours): Temp Pulse Resp BP Pulse Ox 98.8 F 100 H 20 166/69 H 98 09/25/18 04:00 09/25/18 07:01 09/25/18 07:01 09/25/18 07:01 09/25/18 07:01 Intake and Output: 09/25/18 09/25/18 06:59 18:59 Intake Total 581.6 9.3 Output Total 655 45 Balance -73.4 -35.7 - Medications Medications: Current Medications Amlodipine Besylate (Norvasc) 5 mg PO DAILY [facility] Last Admin: 09/24/18 09:36 Dose: 5 mg Docusate Sodium (Colace) 100 mg PO BID [facility] Last Admin: 09/24/18 17:46 Dose: 100 mg Folic Acid (Folic Acid) 1 mg PO DAILY [facility] Last Admin: 09/24/18 09:36 Dose: 1 mg Hydralazine HCl (Apresoline) 25 mg PO Q6H PRN PRN Reason: for SBP >160 Last Admin: 09/24/18 21:24 Dose: 25 mg Hydromorphone HCl (Dilaudid) 0.5 mg IVP Q10M PRN PRN Reason: Pain, moderate (4-7) Last Admin: 09/23/18 19:20 Dose: 0.5 mg Hydromorphone HCl (Dilaudid) 2 mg IVP Q2H PRN PRN Reason: Severe pain 7-10 Last Admin: 09/25/18 04:30 Dose: 2 mg Heparin Sodium/Sodium Chloride (Heparin 31158 Units/250ml 1/2 Normal Saline) 25,000 units in 250 mls @ 11.186 mls/hr IV .[id number] PRN; Protocol PRN Reason: ADJUST RATE PER PROTOCOL Last Admin: 09/24/18 23:10 Dose: 15 units/kg/hr, 9.321 mls/hr Losartan Potassium (Cozaar) 25 mg PO DAILY [facility] Last Admin: 09/24/18 09:36 Dose: 25 mg Ondansetron HCl (Zofran Inj) 4 mg IVP Q6H PRN PRN Reason: Nausea/Vomiting Last Admin: 09/25/18 04:36 Dose: 4 mg Oxycodone/Acetaminophen (Percocet 5/325 Mg Tab) 1 tab PO Q4H PRN PRN Reason: Pain, moderate (4-7) Stop: 09/26/18 17:22 Last Admin: 09/24/18 11:23 Dose: 1 tab Pantoprazole Sodium (Protonix Inj) 40 mg IVP DAILY [facility] Polyethylene Glycol (Miralax) 17 gm PO HS PRN PRN Reason: Constipation Saliva Substitute (First Magic Mouthwash) 5 ml PO TID [facility] Last Admin: 09/24/18 19:50 Dose: Not Given Trazodone HCl (Desyrel) 50 mg PO HS [facility] Last Admin: 09/24/18 21:24 Dose: 50 mg - Labs Labs: 09/25/18 06:08 09/25/18 06:07 PT 12.6 SECONDS (9.7-12.2) H 09/25/18 06:08 INR 1.2 09/25/18 06:08 APTT 50 SECONDS (21-34) H D 09/25/18 06:08 - Constitutional Appears: Non-toxic - Head Exam Head Exam: ATRAUMATIC, NORMAL INSPECTION, NORMOCEPHALIC - Eye Exam Eye Exam: EOMI, Normal appearance - ENT Exam ENT Exam: Mucous Membranes Moist, Normal Oropharynx - Neck Exam Neck Exam: Full ROM, Normal Inspection - Respiratory Exam Respiratory Exam: Clear to Ausculation Bilateral. absent: Rhonchi - Cardiovascular Exam Cardiovascular Exam: REGULAR RHYTHM, +S1, +S2. absent: Murmur - GI/Abdominal Exam GI & Abdominal Exam: Soft. absent: Tenderness - Extremities Exam Extremities Exam: absent: Normal Inspection (L. foot mottling, absent pulses, starting to demarkate at ankle) Assessment and Plan - Assessment and Plan (Free Text) Assessment: Patient with hx of RSFA acute trombotic occlusion in 2008 RX with embolectomy and since has been on antiplatelet and coumadin. > Recent need for cessation of anticoagulation due to retroperitoneal bleed and right adrenal hemmorhage Aug 2018 complicated by recurrence of thrombotic occlusion in the LE's. Now s/p Bilateral Transfemoral Embolectomy. Patch closure Right Common Femoral. Balloon Angioplasty Left Anterior Tibial and Left Peroneal. Thrombolysis Left Anterior Tibial and Left Peroneal. Repeat atherectomy and TPA 09/23/18 ---> again loss of L. foot DP and AT pulse had re-eval in animal laboratory helper yesterday * Amputation riks is high and probable Additional suspicion of pancreatic duct dilation and possibility of renal and splenic infarcts on CT/abdominal imaging Heme w/u done [thrombocytosis, work up showing JEANNINE-2 mutation positive] may be starting Hydrea Rx Plan: Cont heparin GTT -> H/H stable 9.4, PLT 609 Eventual will need to transition into a NOAC or coumadin per HEME/ONC suggestion Monitor for any recurrence of retroperotoneal blled or GI/Abd sx's BP is elevated ECHO: normal LVEF and wall motion On norvasc and cozaar additional norvasc 5 po Hydralazine 25mg PRN for SBP >160 [id number] pain management
[2018-09-25 09:55] LABS: ANISOCYTOSIS SLIGHT; EOSINOPHIL 2 % (0-4); HYPOCHROMIC SLIGHT; LYMPHOCYTE 8 % (20-40); MONOCYTE 3 % (0-10); MYELOCYTE 1 % (0-0); NEUTROPHIL 86 % (50-75); PLATELET ESTIMATE INCREASED (NORMAL); POIKILOCYTOSIS SLIGHT; TOTAL CELLS COUNTED 100
[2018-09-25 09:56] LABS: BURR CELLS SLIGHT; LARGE PLATELETS PRESENT; OVALOCYTES SLIGHT; STOMATOCYTES SLIGHT
[2018-09-25] MEDS: Mag&Al/Simet/Diphen/Lido 237 ML KIT PO SCH ×2 (10:12→18:44)
--- NOTE | 2018-09-25 13:13 | CP.PCM.PN ---
Subjective - Date & Time of Evaluation Date of Evaluation: 09/25/18 Time of Evaluation: 07:00 - Subjective Subjective: Vascular Surgery: Dr. Pichardo Pt seen and examined. No acute overnight events. States she continues to have pain in her Left foot/leg. Denies pain elsewhere. Denies fevers/chills. Objective - Vital Signs/Intake and Output Vital Signs (last 24 hours): Temp Pulse Resp BP Pulse Ox 98.8 F 102 H 11 L 161/60 H 93 L 09/25/18 04:00 09/25/18 12:01 09/25/18 12:01 09/25/18 12:01 09/25/18 12:01 Intake and Output: 09/25/18 09/25/18 06:59 18:59 Intake Total 581.6 9.3 Output Total 655 45 Balance -73.4 -35.7 - Medications Medications: Current Medications Amlodipine Besylate (Norvasc) 5 mg PO DAILY [facility] Last Admin: 09/25/18 10:11 Dose: 5 mg Docusate Sodium (Colace) 100 mg PO BID [facility] Last Admin: 09/25/18 10:11 Dose: 100 mg Folic Acid (Folic Acid) 1 mg PO DAILY [facility] Last Admin: 09/25/18 10:12 Dose: 1 mg Hydralazine HCl (Apresoline) 25 mg PO Q6H PRN PRN Reason: for SBP >160 Last Admin: 09/24/18 21:24 Dose: 25 mg Hydromorphone HCl (Dilaudid) 0.5 mg IVP Q10M PRN PRN Reason: Pain, moderate (4-7) Last Admin: 09/23/18 19:20 Dose: 0.5 mg Hydromorphone HCl (Dilaudid) 2 mg IVP Q2H PRN PRN Reason: Severe pain 7-10 Last Admin: 09/25/18 10:11 Dose: 2 mg Heparin Sodium/Sodium Chloride (Heparin 03578 Units/250ml 1/2 Normal Saline) 25,000 units in 250 mls @ 11.186 mls/hr IV .[id number] PRN; Protocol PRN Reason: ADJUST RATE PER PROTOCOL Last Admin: 09/24/18 23:10 Dose: 15 units/kg/hr, 9.321 mls/hr Losartan Potassium (Cozaar) 25 mg PO DAILY [facility] Last Admin: 09/25/18 10:11 Dose: 25 mg Ondansetron HCl (Zofran Inj) 4 mg IVP Q6H PRN PRN Reason: Nausea/Vomiting Last Admin: 09/25/18 04:36 Dose: 4 mg Oxycodone/Acetaminophen (Percocet 5/325 Mg Tab) 1 tab PO Q4H PRN PRN Reason: Pain, moderate (4-7) Stop: 09/26/18 17:22 Last Admin: 09/24/18 11:23 Dose: 1 tab Pantoprazole Sodium (Protonix Inj) 40 mg IVP DAILY [facility] Last Admin: 09/25/18 10:12 Dose: 40 mg Polyethylene Glycol (Miralax) 17 gm PO HS PRN PRN Reason: Constipation Saliva Substitute (First Magic Mouthwash) 5 ml PO TID [facility] Last Admin: 09/25/18 10:12 Dose: Not Given Trazodone HCl (Desyrel) 50 mg PO HS [facility] Last Admin: 09/24/18 21:24 Dose: 50 mg - Labs Labs: 09/25/18 06:08 09/25/18 06:07 PT 12.6 SECONDS (9.7-12.2) H 09/25/18 06:08 INR 1.2 09/25/18 06:08 APTT 50 SECONDS (21-34) H D 09/25/18 06:08 - Constitutional Appears: Well, No Acute Distress - Head Exam Head Exam: ATRAUMATIC, NORMOCEPHALIC - Eye Exam Eye Exam: Normal appearance - ENT Exam ENT Exam: Mucous Membranes Moist - Respiratory Exam Respiratory Exam: NORMAL BREATHING PATTERN - Cardiovascular Exam Cardiovascular Exam: RRR - GI/Abdominal Exam GI & Abdominal Exam: Soft. absent: Tenderness - Extremities Exam Additional comments: LLE with mottling seen on foot up to the mid calf, cool to touch. 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 Kylee Strickland
--- NOTE | 2018-09-25 14:38 | CT ---
Date of service: 09/24/2018 PROCEDURE: CT Angiography Abdomen, Pelvis and Lower Extremity with Contrast HISTORY: Arterial occlusion, loss of pulses L DP/PT; s/p thrombolysis. COMPARISON: None available. TECHNIQUE: Technique: CT angiography of the abdomen, pelvis and bilateral lower extremities performed in the arterial phase of enhancement. Coronal and sagittal reformats, and well as rotating MIP images of the vessels generated at the workstation. Intravenous contrast dose: 150 milliliters Visipaque 320 Radiation dose: Total exam DLP = 1747.8 mGy-cm. This CT exam was performed using one or more of the following dose reduction techniques: Automated exposure control, adjustment of the mA and/or kV according to patient size, and/or use of iterative reconstruction technique. FINDINGS: CT ANGIOGRAPHY: Thrombus seen within the posterior lower thoracic abdominal aorta. ABDOMINAL AORTA:: Moderate calcific plaque in the abdominal aorta without aneurysm or stenosis. MAJOR AORTIC BRANCHES: Celiac [place]: Unremarkable. Superior mesenteric artery: Unremarkable. Inferior mesenteric artery: Unremarkable. Renal arteries: Unremarkable. PELVIC ARTERIES: Right Common Iliac: Thrombus within the posterior aspect of the proximal right common iliac artery. Right External Iliac: Unremarkable. Right Internal Iliac: Unremarkable. Left Common Iliac: Unremarkable. Left External Iliac: Unremarkable. Left Internal Iliac: Within the left internal iliac artery. RIGHT LOWER EXTREMITY ARTERIES: Right Common Femoral: Unremarkable. Right Superficial Femoral: Occlusion of SFA without reconstitution. Right Profunda Femoris: Unremarkable. Right Popliteal:Occluded. Right Anterior Tibial: Unremarkable. Right Tibioperoneal Trunk: Unremarkable. Right Posterior Tibial: Unremarkable. Right Peroneal: Unremarkable. Right dorsalis pedis : Unremarkable. LEFT LOWER EXTREMITY ARTERIES: Left Common Femoral: Unremarkable. Left Superficial Femoral: Occlusion of the mid SFA without reconstitution. Left Profunda Femoris: Unremarkable. Left Popliteal: Occluded. Left Anterior Tibial: Proximally occluded. Some flow is noted within the mid and distal anterior tibial artery. Left Tibioperoneal Trunk: Unremarkable. Left Posterior Tibial: No flow pretreated. Left Peroneal: Flow appreciated. Left Dorsalis pedis: Unremarkable. NON-ANGIOGRAPHIC ASPECT OF THE EXAM: LOWER THORAX: Unremarkable. LIVER: Unremarkable. No gross lesion or ductal dilatation. GALLBLADDER AND BILE DUCTS: Unremarkable. PANCREAS: Unremarkable. No gross lesion or ductal dilatation. SPLEEN: Unremarkable. ADRENALS: Unremarkable. No mass. KIDNEYS AND URETERS: Area of decreased attenuation seen within the posterior midpole of the right kidney. Is difficult to characterize on this single-phase study. STOMACH AND BOWEL: Evaluation without PO contrast. No obstruction. No gross mural thickening. APPENDIX: Not visualized. PERITONEUM: Unremarkable. No free fluid. No free air. LYMPH NODES: Unremarkable. No enlarged lymph nodes. BLADDER: Unremarkable. REPRODUCTIVE: Unremarkable. BONES: No acute fracture. OTHER FINDINGS: Small hematoma right groin IMPRESSION: CT ANGIOGRAM LUMEN/PELVIS: 1. Moderate calcific plaque in the abdominal aorta without aneurysm or stenosis. Aortic branches are unremarkable 2. There is persistent thrombus in the posterior right common iliac artery. Left common iliac artery is normal. There is thrombus within the right internal iliac artery. RIGHT LOWER EXTREMITY CT ANGIOGRAM: 1. Common femoral artery and profunda femoral artery normal. 2. There occlusion of the SFA beginning the origin with no reconstitution. The popliteal artery is also occluded. The right SFA was patent on most recent CT of 09/18/2017. 3. Runoff shows flow in the anterior tibial artery, tibioperoneal artery in both the posterior tibial artery and peroneal artery. LEFT LOWER EXTREMITY CT ANGIOGRAM: 1. The common femoral artery profunda femoral artery normal. 2. There occlusion of the SFA in the mid segment with no reconstitution. The popliteal artery is occluded. 3. Runoff shows filling of the anterior tibial artery beginning in the mid segment. The proximal AT is occluded. The peroneal artery and posterior tibial artery are occluded.
--- NOTE | 2018-09-25 15:53 | CP.CCUPN ---
<Niranjan Arteaga S - Last Filed: 09/25/18 17:24> CCU Subjective - Physician Review Critical Care Time Spent (in minutes): 30 CCU Objective - Vital Signs / Intake & Output Vital Signs (Last 4 hours): Vital Signs Pulse Resp BP Pulse Ox 09/25/18 15:01 87 14 150/64 09/25/18 15:00 95 H 16 09/25/18 14:01 83 14 165/74 H 100 09/25/18 14:00 84 8 L 99 Intake and Output (Last 8hrs): Intake & Output 09/25/18 09/25/18 09/25/18 06:59 14:59 22:59 Intake Total 424.4 224.4 9.3 Output Total 350 120 Balance 74.4 104.4 9.3 Weight 138 lb Intake: IV 250 Intake, IV Amount 74.4 74.4 9.3 Left Forearm 74.4 74.4 9.3 Right Wrist 0 0 Oral 100 150 Output: Urine 350 120 Urethral (Funez) 350 120 Other: # Bowel Movements 0 0 - Medications Active Medications: Active Medications Generic Name Dose Route Start Last Admin Trade Name Freq PRN Reason Stop Dose Admin Amlodipine Besylate 5 mg 09/18/18 10:00 09/25/18 10:11 Norvasc PO 5 mg DAILY VIVIAN Administration Docusate Sodium 100 mg 09/21/18 10:00 09/25/18 10:11 Colace PO 100 mg BID VIVIAN Administration Folic Acid 1 mg 09/19/18 10:00 09/25/18 10:12 Folic Acid PO 1 mg DAILY VIVIAN Administration Hydralazine HCl 25 mg 09/24/18 13:18 09/24/18 21:24 Apresoline PO 25 mg Q6H PRN Administration for SBP >160 Hydromorphone HCl 0.5 mg 09/23/18 17:17 09/23/18 19:20 Dilaudid IVP 0.5 mg Q10M PRN Administration Pain, moderate (4-7) Hydromorphone HCl 2 mg 09/24/18 11:51 09/25/18 15:34 Dilaudid IVP 2 mg Q2H PRN Administration Severe pain 7-10 Heparin Sodium/Sodium Chloride 25,000 units in 250 mls @ 11.267 mls/hr 09/25/18 17:18 Heparin 72568 Units/250ml 1/2 Normal Saline IV .[id number] PRN ADJUST RATE PER PROTOCOL Protocol 18 UNITS/KG/HR Losartan Potassium 25 mg 09/18/18 10:00 09/25/18 10:11 Cozaar PO 25 mg DAILY VIVIAN Administration Ondansetron HCl 4 mg 09/24/18 20:33 09/25/18 15:32 Zofran Inj IVP 4 mg Q6H PRN Administration Nausea/Vomiting Oxycodone/Acetaminophen 1 tab 09/23/18 17:21 09/24/18 11:23 Percocet 5/325 Mg Tab PO 09/26/18 17:22 1 tab Q4H PRN Administration Pain, moderate (4-7) Pantoprazole Sodium 40 mg 09/25/18 10:00 09/25/18 10:12 Protonix Inj IVP 40 mg DAILY VIVIAN Administration Polyethylene Glycol 17 gm 09/23/18 11:12 Miralax PO HS PRN Constipation Saliva Substitute 5 ml 09/21/18 10:00 09/25/18 10:12 First Magic Mouthwash PO Not Given TID VIVIAN Trazodone HCl 50 mg 09/18/18 22:00 09/24/18 21:24 Desyrel PO 50 mg HS VIVIAN Administration - Patient Studies Lab Studies: Microbiology Studies 09/24/18 00:24 MRSA Culture (Admit) - Final Naris MRSA NOT DETECTED Lab Studies 09/25/18 09/25/18 09/25/18 Range/Units 06:08 06:08 06:07 WBC 13.5 H (4.8-10.8) K/uL RBC 3.64 L (3.80-5.20) Mil/uL Hgb 10.2 L (11.0-16.0) g/dL Hct 31.0 L (34.0-47.0) % MCV 85.1 (81.0-99.0) fL MCH 28.1 (27.0-31.0) pg MCHC 33.1 (33.0-37.0) g/dL RDW 17.7 H (11.5-14.5) % Plt Count 622 H (130-400) K/uL MPV 7.5 (7.2-11.7) fL Neut % (Auto) 81.2 H (50.0-75.0) % Lymph % (Auto) 9.6 L (20.0-40.0) % [place] % (Auto) 6.7 (0.0-10.0) % Eos % (Auto) 1.6 (0.0-4.0) % Baso % (Auto) 0.9 (0.0-2.0) % Neut # (Auto) 10.9 H (1.8-7.0) K/uL Lymph # (Auto) 1.3 (1.0-4.3) K/uL [place] # (Auto) 0.9 H (0.0-0.8) K/uL Eos # (Auto) 0.2 (0.0-0.7) K/uL Baso # (Auto) 0.1 (0.0-0.2) K/uL Neutrophils % (Manual) 86 H (50-75) % Lymphocytes % (Manual) 8 L (20-40) % Monocytes % (Manual) 3 (0-10) % Eosinophils % (Manual) 2 (0-4) % Myelocytes % 1 H (0-0) % Platelet Estimate Increased H (NORMAL) Large Platelets Present Hypochromasia (manual) Slight Poikilocytosis (manual Slight Anisocytosis (manual) Slight Macrocytosis (manual) Slight Ovalocytes Slight Stomatocytes Slight Paul Cells Slight PT 12.6 H (9.7-12.2) SECONDS INR 1.2 APTT 50 H D (21-34) SECONDS Sodium 133 (132-148) mmol/L Potassium 4.6 (3.6-5.2) mmol/L Chloride 98 (98-107) mmol/L Carbon Dioxide 30 (22-30) mmol/L Anion Gap 10 (10-20) BUN 14 (7-17) mg/dL Creatinine 0.7 (0.7-1.2) mg/dL Est GFR ( Amer) > 60 Est GFR (Non-Af Amer) > 60 Random Glucose 131 H (65-105) mg/dL Calcium 8.8 (8.6-10.4) mg/dl Phosphorus 4.1 (2.5-4.5) mg/dL Magnesium 2.2 (1.6-2.3) mg/dL Total Bilirubin 0.3 (0.2-1.3) mg/dL AST 42 H (14-36) U/L ALT 29 (9-52) U/L Alkaline Phosphatase 75 (38-126) U/L Total Protein 6.5 (6.3-8.3) g/dL Albumin 3.6 (3.5-5.0) g/dL Globulin 3.0 (2.2-3.9) gm/dL Albumin/Globulin Ratio 1.2 (1.0-2.1) Laboratory Results - last 24 hr 09/25/18 09/25/18 09/25/18 06:07 06:08 06:08 WBC 13.5 H RBC 3.64 L Hgb 10.2 L Hct 31.0 L MCV 85.1 MCH 28.1 MCHC 33.1 RDW 17.7 H Plt Count 622 H MPV 7.5 Neut % (Auto) 81.2 H Lymph % (Auto) 9.6 L [place] % (Auto) 6.7 Eos % (Auto) 1.6 Baso % (Auto) 0.9 Neut # (Auto) 10.9 H Lymph # (Auto) 1.3 [place] # (Auto) 0.9 H Eos # (Auto) 0.2 Baso # (Auto) 0.1 Neutrophils % (Manual) 86 H Lymphocytes % (Manual) 8 L Monocytes % (Manual) 3 Eosinophils % (Manual) 2 Myelocytes % 1 H Platelet Estimate Increased H Large Platelets Present Hypochromasia (manual) Slight Poikilocytosis (manual Slight Anisocytosis (manual) Slight Macrocytosis (manual) Slight Ovalocytes Slight Stomatocytes Slight Paul Cells Slight PT 12.6 H INR 1.2 APTT 50 H D Sodium 133 Potassium 4.6 Chloride 98 Carbon Dioxide 30 Anion Gap 10 BUN 14 Creatinine 0.7 Est GFR ( Amer) > 60 Est GFR (Non-Af Amer) > 60 Random Glucose 131 H Calcium 8.8 Phosphorus 4.1 Magnesium 2.2 Total Bilirubin 0.3 AST 42 H ALT 29 Alkaline Phosphatase 75 Total Protein 6.5 Albumin 3.6 Globulin 3.0 Albumin/Globulin Ratio 1.2 Radiology Impressions: Radiology Impressions Abdominal Angiography 09/24/18 15:28 IMPRESSION: CT ANGIOGRAM LUMEN/PELVIS: 1. Moderate calcific plaque in the abdominal aorta without aneurysm or stenosis. Aortic branches are unremarkable 2. There is persistent thrombus in the posterior right common iliac artery. Left common iliac artery is normal. There is thrombus within the right internal iliac artery. RIGHT LOWER EXTREMITY CT ANGIOGRAM: 1. Common femoral artery and profunda femoral artery normal. 2. There occlusion of the SFA beginning the origin with no reconstitution. The popliteal artery is also occluded. The right SFA was patent on most recent CT of 09/18/2017. 3. Runoff shows flow in the anterior tibial artery, tibioperoneal artery in both the posterior tibial artery and peroneal artery. LEFT LOWER EXTREMITY CT ANGIOGRAM: 1. The common femoral artery profunda femoral artery normal. 2. There occlusion of the SFA in the mid segment with no reconstitution. The popliteal artery is occluded. 3. Runoff shows filling of the anterior tibial artery beginning in the mid segment. The proximal AT is occluded. The peroneal artery and posterior tibial artery are occluded. Critical Care Progress Note - Nutrition Nutrition: Nutrition Category Date Time Status Heart Healthy Diet [DIET] Diets 09/23/18 Dinner Active Attending/Attestation - Attestation I have personally seen and examined this patient.: Yes I have fully participated in the care of the patient.: Yes I have reviewed all pertinent clinical information: Yes Notes (Text): 09/25/18 17:24 Patient seen and examined in the intensive care unit. complaining of pain in the left lower extremity and foot Possible AKA or BKA depending on the demarcation Continue heparin drip as per surgery Antibiotics Analgesics <Chung Teixeira - Last Filed: 09/25/18 22:10> CCU Subjective - Physician Review Subjective (Free Text): PGY-1 ICU consult note for Dr Arteaga service Patient is seen and examined at bedside today. Patient continues to complain of pain in Left LE. Patient denies fever, chills chest pain, abdominal pain, shortness of breath, nausea or vomiting. CCU Objective - Vital Signs / Intake & Output Vital Signs (Last 4 hours): Vital Signs Pulse Resp BP Pulse Ox 09/25/18 12:01 102 H 11 L 161/60 H 93 L 09/25/18 12:00 87 15 100 Intake and Output (Last 8hrs): Intake & Output 09/25/18 09/25/18 09/25/18 06:59 14:59 22:59 Intake Total 424.4 205.8 Output Total 350 120 Balance 74.4 85.8 Weight 138 lb Intake: IV 250 Intake, IV Amount 74.4 55.8 Left Forearm 74.4 55.8 Right Wrist 0 0 Oral 100 150 Output: Urine 350 120 Urethral (Funez) 350 120 Other: # Bowel Movements 0 0 - Physical Exam Head: Positive for: Atraumatic, Normocephalic Pupils: Positive for: PERRL Extroacular Muscles: Positive for: EOMI Conjunctiva: Positive for: Normal Mouth: Positive for: Moist Mucous Membranes Neck: Positive for: Normal Range of Motion Respiratory/Chest: Positive for: Clear to Auscultation Cardiovascular: Positive for: Regular Rate and Rhythm, Normal S1, S2 Abdomen: Positive for: Normal Bowel Sounds Upper Extremity: Positive for: Normal Inspection. Negative for: Edema Lower Extremity: Positive for: Tenderness (LEft LE ), Other (Doppler pulses noted right DP, PT, no doppler pulses noted on left DP, PT, molten cold left LE) Neurological: Positive for: CN II-XII Intact Skin: Positive for: Warm, Dry Psychiatric: Positive for: Alert, Oriented x 3 - Medications Active Medications: Active Medications Generic Name Dose Route Start Last Admin Trade Name Freq PRN Reason Stop Dose Admin Amlodipine Besylate 5 mg 09/18/18 10:00 09/25/18 10:11 Norvasc PO 5 mg DAILY VIVIAN Administration Docusate Sodium 100 mg 09/21/18 10:00 09/25/18 10:11 Colace PO 100 mg BID VIVIAN Administration Folic Acid 1 mg 09/19/18 10:00 09/25/18 10:12 Folic Acid PO 1 mg DAILY VIVIAN Administration Hydralazine HCl 25 mg 09/24/18 13:18 09/24/18 21:24 Apresoline PO 25 mg Q6H PRN Administration for SBP >160 Hydromorphone HCl 0.5 mg 09/23/18 17:17 09/23/18 19:20 Dilaudid IVP 0.5 mg Q10M PRN Administration Pain, moderate (4-7) Hydromorphone HCl 2 mg 09/24/18 11:51 09/25/18 15:34 Dilaudid IVP 2 mg Q2H PRN Administration Severe pain 7-10 Losartan Potassium 25 mg 09/18/18 10:00 09/25/18 10:11 Cozaar PO 25 mg DAILY VIVIAN Administration Ondansetron HCl 4 mg 09/24/18 20:33 09/25/18 15:32 Zofran Inj IVP 4 mg Q6H PRN Administration Nausea/Vomiting Oxycodone/Acetaminophen 1 tab 09/23/18 17:21 09/24/18 11:23 Percocet 5/325 Mg Tab PO 09/26/18 17:22 1 tab Q4H PRN Administration Pain, moderate (4-7) Pantoprazole Sodium 40 mg 09/25/18 10:00 09/25/18 10:12 Protonix Inj IVP 40 mg DAILY VIVIAN Administration Polyethylene Glycol 17 gm 09/23/18 11:12 Miralax PO HS PRN Constipation Saliva Substitute 5 ml 09/21/18 10:00 09/25/18 10:12 First Magic Mouthwash PO Not Given TID VIVIAN Trazodone HCl 50 mg 09/18/18 22:00 09/24/18 21:24 Desyrel PO 50 mg HS VIVIAN Administration - Patient Studies Lab Studies: Microbiology Studies 09/24/18 00:24 MRSA Culture (Admit) - Final Naris MRSA NOT DETECTED Lab Studies 09/25/18 09/25/18 09/25/18 Range/Units 06:08 06:08 06:07 WBC 13.5 H (4.8-10.8) K/uL RBC 3.64 L (3.80-5.20) Mil/uL Hgb 10.2 L (11.0-16.0) g/dL Hct 31.0 L (34.0-47.0) % MCV 85.1 (81.0-99.0) fL MCH 28.1 (27.0-31.0) pg MCHC 33.1 (33.0-37.0) g/dL RDW 17.7 H (11.5-14.5) % Plt Count 622 H (130-400) K/uL MPV 7.5 (7.2-11.7) fL Neut % (Auto) 81.2 H (50.0-75.0) % Lymph % (Auto) 9.6 L (20.0-40.0) % [place] % (Auto) 6.7 (0.0-10.0) % Eos % (Auto) 1.6 (0.0-4.0) % Baso % (Auto) 0.9 (0.0-2.0) % Neut # (Auto) 10.9 H (1.8-7.0) K/uL Lymph # (Auto) 1.3 (1.0-4.3) K/uL [place] # (Auto) 0.9 H (0.0-0.8) K/uL Eos # (Auto) 0.2 (0.0-0.7) K/uL Baso # (Auto) 0.1 (0.0-0.2) K/uL Neutrophils % (Manual) 86 H (50-75) % Lymphocytes % (Manual) 8 L (20-40) % Monocytes % (Manual) 3 (0-10) % Eosinophils % (Manual) 2 (0-4) % Myelocytes % 1 H (0-0) % Platelet Estimate Increased H (NORMAL) Large Platelets Present Hypochromasia (manual) Slight Poikilocytosis (manual Slight Anisocytosis (manual) Slight Macrocytosis (manual) Slight Ovalocytes Slight Stomatocytes Slight Paul Cells Slight PT 12.6 H (9.7-12.2) SECONDS INR 1.2 APTT 50 H D (21-34) SECONDS Sodium 133 (132-148) mmol/L Potassium 4.6 (3.6-5.2) mmol/L Chloride 98 (98-107) mmol/L Carbon Dioxide 30 (22-30) mmol/L Anion Gap 10 (10-20) BUN 14 (7-17) mg/dL Creatinine 0.7 (0.7-1.2) mg/dL Est GFR ( Amer) > 60 Est GFR (Non-Af Amer) > 60 Random Glucose 131 H (65-105) mg/dL Calcium 8.8 (8.6-10.4) mg/dl Phosphorus 4.1 (2.5-4.5) mg/dL Magnesium 2.2 (1.6-2.3) mg/dL Total Bilirubin 0.3 (0.2-1.3) mg/dL AST 42 H (14-36) U/L ALT 29 (9-52) U/L Alkaline Phosphatase 75 (38-126) U/L Total Protein 6.5 (6.3-8.3) g/dL Albumin 3.6 (3.5-5.0) g/dL Globulin 3.0 (2.2-3.9) gm/dL Albumin/Globulin Ratio 1.2 (1.0-2.1) Laboratory Results - last 24 hr 09/25/18 09/25/18 09/25/18 06:07 06:08 06:08 WBC 13.5 H RBC 3.64 L Hgb 10.2 L Hct 31.0 L MCV 85.1 MCH 28.1 MCHC 33.1 RDW 17.7 H Plt Count 622 H MPV 7.5 Neut % (Auto) 81.2 H Lymph % (Auto) 9.6 L [place] % (Auto) 6.7 Eos % (Auto) 1.6 Baso % (Auto) 0.9 Neut # (Auto) 10.9 H Lymph # (Auto) 1.3 [place] # (Auto) 0.9 H Eos # (Auto) 0.2 Baso # (Auto) 0.1 Neutrophils % (Manual) 86 H Lymphocytes % (Manual) 8 L Monocytes % (Manual) 3 Eosinophils % (Manual) 2 Myelocytes % 1 H Platelet Estimate Increased H Large Platelets Present Hypochromasia (manual) Slight Poikilocytosis (manual Slight Anisocytosis (manual) Slight Macrocytosis (manual) Slight Ovalocytes Slight Stomatocytes Slight [place] Cells Slight PT 12.6 H INR 1.2 APTT 50 H D Sodium 133 Potassium 4.6 Chloride 98 Carbon Dioxide 30 Anion Gap 10 BUN 14 Creatinine 0.7 Est GFR ( Amer) > 60 Est GFR (Non-Af Amer) > 60 Random Glucose 131 H Calcium 8.8 Phosphorus 4.1 Magnesium 2.2 Total Bilirubin 0.3 AST 42 H ALT 29 Alkaline Phosphatase 75 Total Protein 6.5 Albumin 3.6 Globulin 3.0 Albumin/Globulin Ratio 1.2 Radiology Impressions: Radiology Impressions Fluoroscopy 09/23/18 17:00 IMPRESSION: Less than 1 hour fluoroscopic time utilized during performance of the procedure Abdominal Angiography 09/24/18 15:28 IMPRESSION: CT ANGIOGRAM LUMEN/PELVIS: 1. Moderate calcific plaque in the abdominal aorta without aneurysm or stenosis. Aortic branches are unremarkable 2. There is persistent thrombus in the posterior right common iliac artery. Left common iliac artery is normal. There is thrombus within the right internal iliac artery. RIGHT LOWER EXTREMITY CT ANGIOGRAM: 1. Common femoral artery and profunda femoral artery normal. 2. There occlusion of the SFA beginning the origin with no reconstitution. The popliteal artery is also occluded. The right SFA was patent on most recent CT of 09/18/2017. 3. Runoff shows flow in the anterior tibial artery, tibioperoneal artery in both the posterior tibial artery and peroneal artery. LEFT LOWER EXTREMITY CT ANGIOGRAM: 1. The common femoral artery profunda femoral artery normal. 2. There occlusion of the SFA in the mid segment with no reconstitution. The popliteal artery is occluded. 3. Runoff shows filling of the anterior tibial artery beginning in the mid segment. The proximal AT is occluded. The peroneal artery and posterior tibial artery are occluded. Critical Care Progress Note - Nutrition Nutrition: Nutrition Category Date Time Status Heart Healthy Diet [DIET] Diets 09/23/18 Dinner Active Assessment/Plan - Assessment and Plan (Free Text) Plan: Patient is a 72 year old female with PMHx of HTN, GERD, HLD, RLE DVT s/p embolectomy in 2008, retroperitoneal bleed, admitted to hospital for occlusion of left popliteal artery. Vascular surgery on case performed b/l femoral embolectomy with patch closure right common fem and balloon angioplasty left ant tibial and left peroneal with thrombolysis left ant tibial and left peroneal, continued on heparin drip transferred to ICU for further management. Further surgical intervention on 09/23 for left popliteal thrombectomy with angiojet. Patient has pulses by doppler in right DP and PT; currently no palpable or dopplerable pulses in left DP or PT. Patient left lower extremity is cold and molten in appearance. will follow up with surgery for BKA vs AKA based on demarcation. Neuro - AAOx3 - no acute issues Cardiac - Continue Heparin dripDVT protocol per surgery - Coag today: 12.6, 1.2, 50 - Hx of HTNcontinue Norvasc and Cozaar - Hydralazine 25mg PRN for HTN Pulm - O2 99% on NC GI - continue colace and Miralax - Heart Healthy Diet - Reflex Esophagitis start Protonix - Zofran PRN for nausea - f/u GI recs Renal - BUN/Cr 14/0.7, continue to monitor - no acute issues Heme - H/H today - plt count 609 - monitor CBC ID - Afebrile - WBC 13.5 today - continue to monitor CBC Vascular - s/p Left popliteal thrombectomy and s/p b/l femoral embolectomy/thrombectomy - Per surgery, plan for amputation of LLE once the disease demarcates itself; will decide on BKA vs AKA depending on demarcation - continue Heparin Drip - neurovascular check Q2H PPx - Percocet and Dilaudidppx for pain - DVT ppxon heparin drip - GI ppx- on Protonix Plan discussed with Dr Chandler Teixeira, PGY-1 - Date & Time Date: 09/25/18 Time: 09:30
[2018-09-25] MEDS ORDERED: Heparin25000 units/250ml 1/2NS 25,000 UNITS/250 ML BAG IV PRN (17:18)
[2018-09-26] MEDS: Heparin25000 units/250ml 1/2NS 25,000 UNITS/250 ML BAG IV PRN (00:57)
[2018-09-26 06:02] LABS: BASO # 0.1 K/uL (0.0-0.2); BASO % 0.9 % (0.0-2.0); EOS # 0.2 K/uL (0.0-0.7); EOS % 1.3 % (0.0-4.0); HEMOGLOBIN 10.7 g/dL (11.0-16.0); LYMPH # 1.1 K/uL (1.0-4.3); LYMPH % 7.7 % (20.0-40.0); MEAN CELL VOLUME 85.6 fL (81.0-99.0); MEAN CORPUSCULAR HEMOGLOBIN 27.9 pg (27.0-31.0); MEAN CORPUSCULAR HGB CONC 32.6 g/dL (33.0-37.0); MEAN PLATELET VOLUME 7.5 fL (7.2-11.7); MONO % 7.2 % (0.0-10.0); NEUT # 11.8 K/uL (1.8-7.0); NEUT % 82.9 % (50.0-75.0); PLATELET COUNT 502 K/uL (130-400); RBC 3.83 Mil/uL (3.80-5.20); RED CELL DISTRIBUTION WIDTH 17.2 % (11.5-14.5); WHITE BLOOD COUNT 14.2 K/uL (4.8-10.8)
[2018-09-26 06:05] LABS: INR 1.1; PROTHROMBIN TIME 11.7 SECONDS (9.7-12.2)
[2018-09-26 06:11] LABS: ALB/GLOB RATIO 1.3 (1.0-2.1); ALBUMIN 3.8 g/dL (3.5-5.0); ALT/SGPT 40 U/L (9-52); AST/SGOT 140 U/L (14-36); BLOOD UREA NITROGEN 15 mg/dL (7-17); CALCIUM 9.4 mg/dl (8.6-10.4); GFR NON-AFRICAN AMERICAN > 60
[2018-09-26 08:51] LABS: EOSINOPHIL 2 % (0-4); LYMPHOCYTE 6 % (20-40); MONOCYTE 9 % (0-10); NEUTROPHIL 81 % (50-75); PLATELET ESTIMATE INCREASED (NORMAL); REACTIVE LYMPHOCYTES 2 % (0-0); TOTAL CELLS COUNTED 100
[2018-09-26 08:52] LABS: ANISOCYTOSIS SLIGHT; LARGE PLATELETS PRESENT; OVALOCYTES SLIGHT
--- NOTE | 2018-09-26 10:21 | CP.PCM.PN ---
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 No cardiac complaints NSR BP satisfactory Objective - Vital Signs/Intake and Output Vital Signs (last 24 hours): Temp Pulse Resp BP Pulse Ox 98.5 F 103 H 12 132/79 98 09/26/18 08:00 09/26/18 09:01 09/26/18 09:01 09/26/18 09:01 09/26/18 09:01 Intake and Output: 09/26/18 09/26/18 06:59 18:59 Intake Total 915.4 31.5 Output Total 1900 Balance -984.6 31.5 - Medications Medications: Current Medications Amlodipine Besylate (Norvasc) 5 mg PO DAILY [facility] Last Admin: 09/25/18 10:11 Dose: 5 mg Docusate Sodium (Colace) 100 mg PO BID [facility] Last Admin: 09/25/18 18:44 Dose: 100 mg Folic Acid (Folic Acid) 1 mg PO DAILY [facility] Last Admin: 09/25/18 10:12 Dose: 1 mg Hydralazine HCl (Apresoline) 25 mg PO Q6H PRN PRN Reason: for SBP >160 Last Admin: 09/26/18 02:10 Dose: 25 mg Hydromorphone HCl (Dilaudid) 0.5 mg IVP Q10M PRN PRN Reason: Pain, moderate (4-7) Last Admin: 09/23/18 19:20 Dose: 0.5 mg Hydromorphone HCl (Dilaudid) 2 mg IVP Q2H PRN PRN Reason: Severe pain 7-10 Last Admin: 09/26/18 08:02 Dose: 2 mg Heparin Sodium/Sodium Chloride (Heparin 03941 Units/250ml 1/2 Normal Saline) 25,000 units in 250 mls @ 9.389 mls/hr IV .Q24H PRN; Protocol PRN Reason: PROTOCOL Last Titration: 09/26/18 06:57 Dose: 17 units/kg/hr, 10.641 mls/hr Losartan Potassium (Cozaar) 25 mg PO DAILY [facility] Last Admin: 09/25/18 10:11 Dose: 25 mg Ondansetron HCl (Zofran Inj) 4 mg IVP Q6H PRN PRN Reason: Nausea/Vomiting Last Admin: 09/25/18 15:32 Dose: 4 mg Oxycodone/Acetaminophen (Percocet 5/325 Mg Tab) 1 tab PO Q4H PRN PRN Reason: Pain, moderate (4-7) Stop: 09/26/18 17:22 Last Admin: 09/24/18 11:23 Dose: 1 tab Pantoprazole Sodium (Protonix Inj) 40 mg IVP DAILY [facility] Last Admin: 09/25/18 10:12 Dose: 40 mg Polyethylene Glycol (Miralax) 17 gm PO HS PRN PRN Reason: Constipation Saliva Substitute (First Magic Mouthwash) 5 ml PO TID [facility] Last Admin: 09/25/18 18:44 Dose: Not Given Trazodone HCl (Desyrel) 50 mg PO HS [facility] Last Admin: 09/25/18 22:00 Dose: 50 mg - Labs Labs: 09/26/18 05:49 09/26/18 05:47 PT 11.7 SECONDS (9.7-12.2) 09/26/18 05:49 INR 1.1 09/26/18 05:49 APTT 43 SECONDS (21-34) H D 09/26/18 05:49 - Constitutional Appears: No Acute Distress - Head Exam Head Exam: ATRAUMATIC, NORMAL INSPECTION, NORMOCEPHALIC - Eye Exam Eye Exam: EOMI, Normal appearance. absent: Scleral icterus - ENT Exam ENT Exam: Mucous Membranes Moist, Normal Oropharynx - Respiratory Exam Respiratory Exam: Clear to Ausculation Bilateral, NORMAL BREATHING PATTERN. absent: Rhonchi, Wheezes - Cardiovascular Exam Cardiovascular Exam: REGULAR RHYTHM, +S1, +S2. absent: +S4, Murmur - Extremities Exam Extremities Exam: absent: Normal Inspection (Arterial cyanosis, discoloration and demarcation to mid calf LLE loss of B/L DP) - Psychiatric Exam Psychiatric exam: Normal Affect, Normal Mood Assessment and Plan - Assessment and Plan (Free Text) Assessment: Patient with hx of RSFA acute trombotic occlusion in 2008 RX with embolectomy and since has been on antiplatelet and coumadin. > Recent need for cessation of anticoagulation due to retroperitoneal bleed and right adrenal hemmorhage Aug 2018 complicated by recurrence of thrombotic oc clusion in the LE's. Now s/p Bilateral Transfemoral Embolectomy. Patch closure Right Common Femoral. Balloon Angioplasty Left Anterior Tibial and Left Peroneal. Thrombolysis Left Anterior Tibial and Left Peroneal. Repeat atherectomy and TPA 09/23/18 ---> again loss of L. foot DP and AT pulse had re-eval in can labeler yesterday * Amputation is now planned BKA versus AKA for 09/27/18 Additional suspicion of pancreatic duct dilation (seen by GI: no need for intervention) and possibility of renal and splenic infarcts on CT/abdominal imaging Heme w/u done [thrombocytosis, work up showing JEANNINE-2 mutation positive] may be starting Hydrea Rx Plan: Cont heparin GTT -> H/H stable 10.7, PLT 502 Eventual will need to transition into a NOAC or coumadin per HEME/ONC suggestion Monitor for any recurrence of retroperotoneal bleed or GI/Abd sx's BP is elevated ECHO: normal LVEF and wall motion On norvasc and cozaar additional norvasc 5 po Hydralazine 25mg PRN for SBP >160 [id number] pain management
[2018-09-26] MEDS: Mag&Al/Simet/Diphen/Lido 237 ML KIT PO SCH ×3 (11:18→18:08)
--- NOTE | 2018-09-26 11:59 | CP.PCM.PN ---
Subjective - Date & Time of Evaluation Date of Evaluation: 09/26/18 Time of Evaluation: 07:15 - Subjective Subjective: General Surgery Dr. Pichardo Pt seen and examined @bedside. No acute events overnight. pt c/o pain and numbness in her LLE, from knee down to foot. pain controlled w/ meds. Objective - Vital Signs/Intake and Output Vital Signs (last 24 hours): Temp Pulse Resp BP Pulse Ox 98.5 F 103 H 12 132/79 98 09/26/18 08:00 09/26/18 09:01 09/26/18 09:01 09/26/18 09:01 09/26/18 09:01 Intake and Output: 09/26/18 09/26/18 06:59 18:59 Intake Total 915.4 31.5 Output Total 1900 Balance -984.6 31.5 - Medications Medications: Current Medications Amlodipine Besylate (Norvasc) 5 mg PO DAILY [facility] Last Admin: 09/26/18 11:17 Dose: 5 mg Docusate Sodium (Colace) 100 mg PO BID [facility] Last Admin: 09/26/18 11:18 Dose: 100 mg Folic Acid (Folic Acid) 1 mg PO DAILY [facility] Last Admin: 09/26/18 11:17 Dose: 1 mg Hydralazine HCl (Apresoline) 25 mg PO Q6H PRN PRN Reason: for SBP >160 Last Admin: 09/26/18 11:17 Dose: 25 mg Hydromorphone HCl (Dilaudid) 0.5 mg IVP Q10M PRN PRN Reason: Pain, moderate (4-7) Last Admin: 09/23/18 19:20 Dose: 0.5 mg Hydromorphone HCl (Dilaudid) 2 mg IVP Q2H PRN PRN Reason: Severe pain 7-10 Last Admin: 09/26/18 11:18 Dose: 2 mg Heparin Sodium/Sodium Chloride (Heparin 48648 Units/250ml 1/2 Normal Saline) 25,000 units in 250 mls @ 9.389 mls/hr IV .Q24H PRN; Protocol PRN Reason: PROTOCOL Last Titration: 09/26/18 06:57 Dose: 17 units/kg/hr, 10.641 mls/hr Losartan Potassium (Cozaar) 25 mg PO DAILY [facility] Last Admin: 09/26/18 11:17 Dose: 25 mg Ondansetron HCl (Zofran Inj) 4 mg IVP Q6H PRN PRN Reason: Nausea/Vomiting Last Admin: 09/26/18 11:17 Dose: 4 mg Oxycodone/Acetaminophen (Percocet 5/325 Mg Tab) 1 tab PO Q4H PRN PRN Reason: Pain, moderate (4-7) Stop: 09/26/18 17:22 Last Admin: 09/24/18 11:23 Dose: 1 tab Pantoprazole Sodium (Protonix Inj) 40 mg IVP DAILY [facility] Last Admin: 09/26/18 11:17 Dose: 40 mg Polyethylene Glycol (Miralax) 17 gm PO HS PRN PRN Reason: Constipation Saliva Substitute (First Magic Mouthwash) 5 ml PO TID [facility] Last Admin: 09/26/18 11:18 Dose: Not Given Trazodone HCl (Desyrel) 50 mg PO HS [facility] Last Admin: 09/25/18 22:00 Dose: 50 mg - Labs Labs: 09/26/18 05:49 09/26/18 05:47 PT 11.7 SECONDS (9.7-12.2) 09/26/18 05:49 INR 1.1 09/26/18 05:49 APTT 43 SECONDS (21-34) H D 09/26/18 05:49 - Constitutional Appears: Non-toxic, No Acute Distress - Head Exam Head Exam: NORMAL INSPECTION - Eye Exam Eye Exam: Normal appearance - ENT Exam ENT Exam: Mucous Membranes Moist - Respiratory Exam Respiratory Exam: absent: Accessory Muscle Use, Respiratory Distress, NORMAL BREATHING PATTERN - Cardiovascular Exam Cardiovascular Exam: REGULAR RHYTHM. absent: Bradycardia, Tachycardia - GI/Abdominal Exam GI & Abdominal Exam: Soft. absent: Distended, Tenderness - Extremities Exam Additional comments: L foot cool, dusky, TTP RLE w/ dopplerable DP/PT - Neurological Exam Neurological Exam: Alert, Awake - Psychiatric Exam Psychiatric exam: Normal Affect, Normal Mood - Skin Skin Exam: Dry, Intact, Warm Assessment and Plan - Assessment and Plan (Free Text) Assessment: 72 y/o F w/ thromboembolic disease POD#6 s/p LLE angio with mechanical thrombolysis & angioplasty of L posterior tibial/peroneal arteries Plan: - plan for BKA tomorrow - NPO @[place] - type and cross 2 units pRBC - consent to be obtained - cont pain management and supportive care Pt discussed w/ Dr. Kylee Cox DO PGY3
[2018-09-26] MEDS ORDERED: Docusate-Senna 50 mg-8.6 mg Tab PO SCH (14:00)
[2018-09-26] MEDS: Acetaminophen IV 1,000 MG in Premixed IV 1 EA IV SCH ×2 (15:22→21:37)
[2018-09-26] MEDS: Docusate-Senna 50 mg-8.6 mg Tab PO SCH ×2 (15:22→18:08)
--- NOTE | 2018-09-26 15:33 | CP.CCUPN ---
<Chung Teixeira - Last Filed: 09/26/18 15:33> CCU Subjective - Physician Review Subjective (Free Text): PGY-1 ICU consult note for Dr Arteaga service Patient is seen and examined at bedside today. Patient continues to complain of pain in Left LE. Patient denies fever, chills chest pain, abdominal pain, shortness of breath, nausea or vomiting. CCU Objective - Vital Signs / Intake & Output Intake and Output (Last 8hrs): Intake & Output 09/26/18 09/26/18 09/26/18 06:59 14:59 22:59 Intake Total 397.5 31.5 Output Total 1900 Balance -1502.5 31.5 Weight 136 lb 14.4 oz Intake: IV 53.8 Intake, IV Amount 93.7 31.5 Left Forearm 83.7 31.5 Right Wrist 10 Oral 250 Output: Urine 1900 Urethral (Funez) 1900 - Physical Exam Head: Positive for: Atraumatic, Normocephalic Pupils: Positive for: PERRL Extroacular Muscles: Positive for: EOMI Conjunctiva: Positive for: Normal Mouth: Positive for: Moist Mucous Membranes Neck: Positive for: Normal Range of Motion Respiratory/Chest: Positive for: Clear to Auscultation Cardiovascular: Positive for: Regular Rate and Rhythm, Normal S1, S2 Abdomen: Positive for: Normal Bowel Sounds Upper Extremity: Positive for: Normal Inspection. Negative for: Edema Lower Extremity: Positive for: Tenderness (LEft LE ), Other (Doppler pulses noted right DP, PT, no doppler pulses noted on left DP, PT, molten cold left LE) Neurological: Positive for: CN II-XII Intact Skin: Positive for: Warm, Dry Psychiatric: Positive for: Alert, Oriented x 3 - Medications Active Medications: Active Medications Generic Name Dose Route Start Last Admin Trade Name Freq PRN Reason Stop Dose Admin Amlodipine Besylate 5 mg 09/18/18 10:00 09/26/18 11:17 Norvasc PO 5 mg DAILY [facility] Administration Docusate Sodium 100 mg 09/21/18 10:00 09/26/18 11:18 Colace PO 100 mg BID [facility] Administration Folic Acid 1 mg 09/19/18 10:00 09/26/18 11:17 Folic Acid PO 1 mg DAILY [facility] Administration Hydralazine HCl 25 mg 09/24/18 13:18 09/26/18 11:17 Apresoline PO 25 mg Q6H PRN Administration for SBP >160 Heparin Sodium/Sodium Chloride 25,000 units in 250 mls @ 9.389 mls/hr 09/26/18 00:30 09/26/18 06:57 Heparin 20008 Units/250ml 1/2 Normal Saline IV 17 units/kg/hr .Q24H PRN 10.641 mls/hr PROTOCOL Titration Protocol 15 UNITS/KG/HR Acetaminophen 1,000 mg/ 100 mls @ 400 mls/hr 09/26/18 16:00 09/26/18 15:22 Miscellaneous IV 09/27/18 16:01 400 mls/hr Q6H [facility] Administration Ketorolac Tromethamine 30 mg 09/26/18 14:00 Toradol IVP Q6 PRN Pain, severe (8-10) Losartan Potassium 25 mg 09/18/18 10:00 09/26/18 11:17 Cozaar PO 25 mg DAILY [facility] Administration Ondansetron HCl 4 mg 09/24/18 20:33 09/26/18 11:17 Zofran Inj IVP 4 mg Q6H PRN Administration Nausea/Vomiting Pantoprazole Sodium 40 mg 09/25/18 10:00 09/26/18 11:17 Protonix Inj IVP 40 mg DAILY [facility] Administration Polyethylene Glycol 17 gm 09/23/18 11:12 Miralax PO HS PRN Constipation Saliva Substitute 5 ml 09/21/18 10:00 09/26/18 15:23 First Magic Mouthwash PO Not Given TID [facility] Senna/Docusate Sodium 2 tab 09/26/18 14:00 09/26/18 15:22 Senokot S 50 Mg-8.6 Mg PO 2 tab TID [facility] Administration Trazodone HCl 50 mg 09/18/18 22:00 09/25/18 22:00 Desyrel PO 50 mg HS [facility] Administration - Patient Studies Lab Studies: Microbiology Studies 09/24/18 00:24 MRSA Culture (Admit) - Final Naris MRSA NOT DETECTED Lab Studies 09/26/18 09/26/18 09/26/18 Range/Units 05:49 05:49 05:47 WBC 14.2 H (4.8-10.8) K/uL RBC 3.83 (3.80-5.20) Mil/uL Hgb 10.7 L (11.0-16.0) g/dL Hct 32.8 L (34.0-47.0) % MCV 85.6 (81.0-99.0) fL MCH 27.9 (27.0-31.0) pg MCHC 32.6 L (33.0-37.0) g/dL RDW 17.2 H (11.5-14.5) % Plt Count 502 H D (130-400) K/uL MPV 7.5 (7.2-11.7) fL Neut % (Auto) 82.9 H (50.0-75.0) % Lymph % (Auto) 7.7 L (20.0-40.0) % Starr % (Auto) 7.2 (0.0-10.0) % Eos % (Auto) 1.3 (0.0-4.0) % Baso % (Auto) 0.9 (0.0-2.0) % Neut # (Auto) 11.8 H (1.8-7.0) K/uL Lymph # (Auto) 1.1 (1.0-4.3) K/uL Starr # (Auto) 1.0 H (0.0-0.8) K/uL Eos # (Auto) 0.2 (0.0-0.7) K/uL Baso # (Auto) 0.1 (0.0-0.2) K/uL Neutrophils % (Manual) 81 H (50-75) % Lymphocytes % (Manual) 6 L (20-40) % Reactive Lymphs % 2 H (0-0) % Monocytes % (Manual) 9 (0-10) % Eosinophils % (Manual) 2 (0-4) % Platelet Estimate Increased H (NORMAL) Large Platelets Present Anisocytosis (manual) Slight Ovalocytes Slight PT 11.7 (9.7-12.2) SECONDS INR 1.1 APTT 43 H D (21-34) SECONDS Sodium 134 (132-148) mmol/L Potassium 5.1 (3.6-5.2) mmol/L Chloride 99 (98-107) mmol/L Carbon Dioxide 31 H (22-30) mmol/L Anion Gap 9 L (10-20) BUN 15 (7-17) mg/dL Creatinine 0.7 (0.7-1.2) mg/dL Est GFR ( Amer) > 60 Est GFR (Non-Af Amer) > 60 Random Glucose 143 H (65-105) mg/dL Calcium 9.4 (8.6-10.4) mg/dl Phosphorus 3.3 (2.5-4.5) mg/dL Magnesium 2.3 (1.6-2.3) mg/dL Total Bilirubin 0.4 (0.2-1.3) mg/dL AST 140 H D (14-36) U/L ALT 40 (9-52) U/L Alkaline Phosphatase 82 (38-126) U/L Total Protein 6.7 (6.3-8.3) g/dL Albumin 3.8 (3.5-5.0) g/dL Globulin 2.9 (2.2-3.9) gm/dL Albumin/Globulin Ratio 1.3 (1.0-2.1) Laboratory Results - last 24 hr 09/26/18 09/26/18 09/26/18 05:47 05:49 05:49 WBC 14.2 H RBC 3.83 Hgb 10.7 L Hct 32.8 L MCV 85.6 MCH 27.9 MCHC 32.6 L RDW 17.2 H Plt Count 502 H D MPV 7.5 Neut % (Auto) 82.9 H Lymph % (Auto) 7.7 L Starr % (Auto) 7.2 Eos % (Auto) 1.3 Baso % (Auto) 0.9 Neut # (Auto) 11.8 H Lymph # (Auto) 1.1 Starr # (Auto) 1.0 H Eos # (Auto) 0.2 Baso # (Auto) 0.1 Neutrophils % (Manual) 81 H Lymphocytes % (Manual) 6 L Reactive Lymphs % 2 H Monocytes % (Manual) 9 Eosinophils % (Manual) 2 Platelet Estimate Increased H Large Platelets Present Anisocytosis (manual) Slight Ovalocytes Slight PT 11.7 INR 1.1 APTT 43 H D Sodium 134 Potassium 5.1 Chloride 99 Carbon Dioxide 31 H Anion Gap 9 L BUN 15 Creatinine 0.7 Est GFR ( Amer) > 60 Est GFR (Non-Af Amer) > 60 Random Glucose 143 H Calcium 9.4 Phosphorus 3.3 Magnesium 2.3 Total Bilirubin 0.4 AST 140 H D ALT 40 Alkaline Phosphatase 82 Total Protein 6.7 Albumin 3.8 Globulin 2.9 Albumin/Globulin Ratio 1.3 Critical Care Progress Note - Nutrition Nutrition: Nutrition Category Date Time Status Heart Healthy Diet [DIET] Diets 09/23/18 Dinner Active NPO Diet [DIET] Diets 09/27/18 Breakfast Active <[email or web address] - Last Filed: 09/26/18 19:06> CCU Objective - Vital Signs / Intake & Output Vital Signs (Last 4 hours): Vital Signs Temp Pulse Resp BP Pulse Ox 09/26/18 18:29 101 H 16 170/74 H 09/26/18 18:00 110 H 16 09/26/18 17:01 111 H 13 148/76 09/26/18 17:00 107 H 15 09/26/18 16:01 105 H 17 139/70 09/26/18 16:00 98.7 F 103 H 18 100 Intake and Output (Last 8hrs): Intake & Output 09/26/18 09/26/18 09/26/18 06:59 14:59 22:59 Intake Total 397.5 84.0 381.5 Output Total 1900 800 Balance -1502.5 84.0 -418.5 Weight 136 lb 14.4 oz Intake: IV 53.8 Intake, IV Amount 93.7 84.0 131.5 Left Forearm 83.7 84.0 31.5 Right Wrist 10 100 Oral 250 250 Output: Urine 1900 800 Urethral (Funez) 1900 800 - Medications Active Medications: Active Medications Generic Name Dose Route Start Last Admin Trade Name Keanu PRN Reason Stop Dose Admin Amlodipine Besylate 5 mg 09/18/18 10:00 09/26/18 11:17 Norvasc PO 5 mg DAILY [facility] Administration Docusate Sodium 100 mg 09/21/18 10:00 09/26/18 18:07 Colace PO 100 mg BID [facility] Administration Folic Acid 1 mg 09/19/18 10:00 09/26/18 11:17 Folic Acid PO 1 mg DAILY [facility] Administration Hydralazine HCl 25 mg 09/24/18 13:18 09/26/18 11:17 Apresoline PO 25 mg Q6H PRN Administration for SBP >160 Heparin Sodium/Sodium Chloride 25,000 units in 250 mls @ 9.389 mls/hr 09/26/18 00:30 09/26/18 06:57 Heparin 80488 Units/250ml 1/2 Normal Saline IV 17 units/kg/hr .Q24H PRN 10.641 mls/hr PROTOCOL Titration Protocol 15 UNITS/KG/HR Acetaminophen 1,000 mg/ 100 mls @ 400 mls/hr 09/26/18 16:00 09/26/18 15:22 Miscellaneous IV 09/27/18 16:01 400 mls/hr Q6H [facility] Administration Ketorolac Tromethamine 30 mg 09/26/18 14:00 09/26/18 18:29 Toradol IVP 30 mg Q6 PRN Administration Pain, severe (8-10) Losartan Potassium 25 mg 09/18/18 10:00 09/26/18 11:17 Cozaar PO 25 mg DAILY [facility] Administration Ondansetron HCl 4 mg 09/24/18 20:33 09/26/18 11:17 Zofran Inj IVP 4 mg Q6H PRN Administration Nausea/Vomiting Pantoprazole Sodium 40 mg 09/25/18 10:00 09/26/18 11:17 Protonix Inj IVP 40 mg DAILY [facility] Administration Polyethylene Glycol 17 gm 09/23/18 11:12 Miralax PO HS PRN Constipation Saliva Substitute 5 ml 09/21/18 10:00 09/26/18 18:08 First Magic Mouthwash PO Not Given TID [facility] Senna/Docusate Sodium 2 tab 09/26/18 14:00 09/26/18 18:08 Senokot S 50 Mg-8.6 Mg PO 2 tab TID [facility] Administration Trazodone HCl 50 mg 09/18/18 22:00 09/25/18 22:00 Desyrel PO 50 mg HS [facility] Administration - Patient Studies Lab Studies: Lab Studies 09/26/18 09/26/18 09/26/18 Range/Units 17:33 05:49 05:49 WBC 14.2 H (4.8-10.8) K/uL RBC 3.83 (3.80-5.20) Mil/uL Hgb 10.7 L (11.0-16.0) g/dL Hct 32.8 L (34.0-47.0) % MCV 85.6 (81.0-99.0) fL MCH 27.9 (27.0-31.0) pg MCHC 32.6 L (33.0-37.0) g/dL RDW 17.2 H (11.5-14.5) % Plt Count 502 H D (130-400) K/uL MPV 7.5 (7.2-11.7) fL Neut % (Auto) 82.9 H (50.0-75.0) % Lymph % (Auto) 7.7 L (20.0-40.0) % Starr % (Auto) 7.2 (0.0-10.0) % Eos % (Auto) 1.3 (0.0-4.0) % Baso % (Auto) 0.9 (0.0-2.0) % Neut # (Auto) 11.8 H (1.8-7.0) K/uL Lymph # (Auto) 1.1 (1.0-4.3) K/uL Starr # (Auto) 1.0 H (0.0-0.8) K/uL Eos # (Auto) 0.2 (0.0-0.7) K/uL Baso # (Auto) 0.1 (0.0-0.2) K/uL Neutrophils % (Manual) 81 H (50-75) % Lymphocytes % (Manual) 6 L (20-40) % Reactive Lymphs % 2 H (0-0) % Monocytes % (Manual) 9 (0-10) % Eosinophils % (Manual) 2 (0-4) % Platelet Estimate Increased H (NORMAL) Large Platelets Present Anisocytosis (manual) Slight Ovalocytes Slight PT 11.7 (9.7-12.2) SECONDS INR 1.1 APTT 68 H D 43 H D (21-34) SECONDS Sodium (132-148) mmol/L Potassium (3.6-5.2) mmol/L Chloride (98-107) mmol/L Carbon Dioxide (22-30) mmol/L Anion Gap (10-20) BUN (7-17) mg/dL Creatinine (0.7-1.2) mg/dL Est GFR ( Amer) Est GFR (Non-Af Amer) Random Glucose (65-105) mg/dL Calcium (8.6-10.4) mg/dl Phosphorus (2.5-4.5) mg/dL Magnesium (1.6-2.3) mg/dL Total Bilirubin (0.2-1.3) mg/dL AST (14-36) U/L ALT (9-52) U/L Alkaline Phosphatase (38-126) U/L Total Protein (6.3-8.3) g/dL Albumin (3.5-5.0) g/dL Globulin (2.2-3.9) gm/dL Albumin/Globulin Ratio (1.0-2.1) 09/26/18 Range/Units 05:47 WBC (4.8-10.8) K/uL RBC (3.80-5.20) Mil/uL Hgb (11.0-16.0) g/dL Hct (34.0-47.0) % MCV (81.0-99.0) fL MCH (27.0-31.0) pg MCHC (33.0-37.0) g/dL RDW (11.5-14.5) % Plt Count (130-400) K/uL MPV (7.2-11.7) fL Neut % (Auto) (50.0-75.0) % Lymph % (Auto) (20.0-40.0) % Starr % (Auto) (0.0-10.0) % Eos % (Auto) (0.0-4.0) % Baso % (Auto) (0.0-2.0) % Neut # (Auto) (1.8-7.0) K/uL Lymph # (Auto) (1.0-4.3) K/uL Starr # (Auto) (0.0-0.8) K/uL Eos # (Auto) (0.0-0.7) K/uL Baso # (Auto) (0.0-0.2) K/uL Neutrophils % (Manual) (50-75) % Lymphocytes % (Manual) (20-40) % Reactive Lymphs % (0-0) % Monocytes % (Manual) (0-10) % Eosinophils % (Manual) (0-4) % Platelet Estimate (NORMAL) Large Platelets Anisocytosis (manual) Ovalocytes PT (9.7-12.2) SECONDS INR APTT (21-34) SECONDS Sodium 134 (132-148) mmol/L Potassium 5.1 (3.6-5.2) mmol/L Chloride 99 (98-107) mmol/L Carbon Dioxide 31 H (22-30) mmol/L Anion Gap 9 L (10-20) BUN 15 (7-17) mg/dL Creatinine 0.7 (0.7-1.2) mg/dL Est GFR ( Amer) > 60 Est GFR (Non-Af Amer) > 60 Random Glucose 143 H (65-105) mg/dL Calcium 9.4 (8.6-10.4) mg/dl Phosphorus 3.3 (2.5-4.5) mg/dL Magnesium 2.3 (1.6-2.3) mg/dL Total Bilirubin 0.4 (0.2-1.3) mg/dL AST 140 H D (14-36) U/L ALT 40 (9-52) U/L Alkaline Phosphatase 82 (38-126) U/L Total Protein 6.7 (6.3-8.3) g/dL Albumin 3.8 (3.5-5.0) g/dL Globulin 2.9 (2.2-3.9) gm/dL Albumin/Globulin Ratio 1.3 (1.0-2.1) Laboratory Results - last 24 hr 09/26/18 09/26/18 09/26/18 05:47 05:49 05:49 WBC 14.2 H RBC 3.83 Hgb 10.7 L Hct 32.8 L MCV 85.6 MCH 27.9 MCHC 32.6 L RDW 17.2 H Plt Count 502 H D MPV 7.5 Neut % (Auto) 82.9 H Lymph % (Auto) 7.7 L Starr % (Auto) 7.2 Eos % (Auto) 1.3 Baso % (Auto) 0.9 Neut # (Auto) 11.8 H Lymph # (Auto) 1.1 Starr # (Auto) 1.0 H Eos # (Auto) 0.2 Baso # (Auto) 0.1 Neutrophils % (Manual) 81 H Lymphocytes % (Manual) 6 L Reactive Lymphs % 2 H Monocytes % (Manual) 9 Eosinophils % (Manual) 2 Platelet Estimate Increased H Large Platelets Present Anisocytosis (manual) Slight Ovalocytes Slight PT 11.7 INR 1.1 APTT 43 H D Sodium 134 Potassium 5.1 Chloride 99 Carbon Dioxide 31 H Anion Gap 9 L BUN 15 Creatinine 0.7 Est GFR ( Amer) > 60 Est GFR (Non-Af Amer) > 60 Random Glucose 143 H Calcium 9.4 Phosphorus 3.3 Magnesium 2.3 Total Bilirubin 0.4 AST 140 H D ALT 40 Alkaline Phosphatase 82 Total Protein 6.7 Albumin 3.8 Globulin 2.9 Albumin/Globulin Ratio 1.3 09/26/18 17:33 WBC RBC Hgb Hct MCV MCH MCHC RDW Plt Count MPV Neut % (Auto) Lymph % (Auto) Starr % (Auto) Eos % (Auto) Baso % (Auto) Neut # (Auto) Lymph # (Auto) Starr # (Auto) Eos # (Auto) Baso # (Auto) Neutrophils % (Manual) Lymphocytes % (Manual) Reactive Lymphs % Monocytes % (Manual) Eosinophils % (Manual) Platelet Estimate Large Platelets Anisocytosis (manual) Ovalocytes PT INR APTT 68 H D Sodium Potassium Chloride Carbon Dioxide Anion Gap BUN Creatinine Est GFR ( Amer) Est GFR (Non-Af Amer) Random Glucose Calcium Phosphorus Magnesium Total Bilirubin AST ALT Alkaline Phosphatase Total Protein Albumin Globulin Albumin/Globulin Ratio Critical Care Progress Note - Nutrition Nutrition: Nutrition Category Date Time Status Heart Healthy Diet [DIET] Diets 09/23/18 Dinner Active NPO Diet [DIET] Diets 09/27/18 Breakfast Active Attending/Attestation - Attestation I have personally seen and examined this patient.: Yes I have fully participated in the care of the patient.: Yes I have reviewed all pertinent clinical information: Yes Notes (Text): 09/26/18 19:02 I have seen and examined the patient. Medical records, lab studies, and imaging were reviewed by me and a management plan was formulated on multidisciplinary rounds with resident Dr. Teixeira. I agree with their documented assessment and plan. Patient's pain controlled with IV Tylenol RTC and prn toradol. Stopping opioids because of constipation, started senokot. Patient going for AKA tomorrow. Critical Care Time 35 minutes. Multi-disciplinary rounds were performed with house staff, nursing, speech therapy, respiratory therapy, pharmacy and nutrition with integrated input from the primary team/attending and other consulting services. The documented time is cumulative and includes review of patient data/exams/labs/chart review and examination of the patient on rounds and throughout the day; time is exclusive of any procedures or teaching time.
[2018-09-26] MEDS ORDERED: Acetaminophen IV 1,000 MG in Premixed IV 1 EA IV SCH (18:00)
[2018-09-26] MEDS: Lidocaine 5% Patch TD SCH (20:13)
[2018-09-27] MEDS: Heparin25000 units/250ml 1/2NS 25,000 UNITS/250 ML BAG IV PRN ×2 (02:02→22:15)
[2018-09-27] MEDS: Acetaminophen IV 1,000 MG in Premixed IV 1 EA IV SCH ×3 (05:18→17:24)
[2018-09-27 06:18] LABS: BASO # 0.1 K/uL (0.0-0.2); BASO % 0.4 % (0.0-2.0); EOS # 0.2 K/uL (0.0-0.7); EOS % 1.6 % (0.0-4.0); HEMOGLOBIN 10.2 g/dL (11.0-16.0); LYMPH # 0.7 K/uL (1.0-4.3); LYMPH % 5.2 % (20.0-40.0); MEAN CELL VOLUME 84.8 fL (81.0-99.0); MEAN CORPUSCULAR HEMOGLOBIN 27.3 pg (27.0-31.0); MEAN CORPUSCULAR HGB CONC 32.2 g/dL (33.0-37.0); MEAN PLATELET VOLUME 7.8 fL (7.2-11.7); MONO % 6.9 % (0.0-10.0); NEUT # 12.2 K/uL (1.8-7.0); NEUT % 85.9 % (50.0-75.0); NRBC % 0.1 % (0.0-2.0); PLATELET COUNT 597 K/uL (130-400); RBC 3.72 Mil/uL (3.80-5.20); WHITE BLOOD COUNT 14.3 K/uL (4.8-10.8)
[2018-09-27 06:30] LABS: ALB/GLOB RATIO 1.2 (1.0-2.1); ALBUMIN 3.3 g/dL (3.5-5.0); ALT/SGPT 47 U/L (9-52); AST/SGOT 160 U/L (14-36); BLOOD UREA NITROGEN 17 mg/dL (7-17); CALCIUM 8.8 mg/dl (8.6-10.4); GFR NON-AFRICAN AMERICAN > 60
[2018-09-27 08:36] LABS: BANDS 5 % (0-2); EOSINOPHIL 1 % (0-4); LYMPHOCYTE 6 % (20-40); MONOCYTE 10 % (0-10); MYELOCYTE 2 % (0-0); NEUTROPHIL 76 % (50-75); TOTAL CELLS COUNTED 100
[2018-09-27 08:37] LABS: ANISOCYTOSIS SLIGHT; PLATELET ESTIMATE INCREASED (NORMAL); POIKILOCYTOSIS SLIGHT
[2018-09-27 08:38] LABS: GIANT PLATELETS PRESENT; HYPOCHROMIC SLIGHT; LARGE PLATELETS PRESENT; MICROCYTOSIS SLIGHT; OVALOCYTES SLIGHT; TARGET CELLS SLIGHT
[2018-09-27 08:39] LABS: ACANTHOCYTES SLIGHT; BURR CELLS SLIGHT
[2018-09-27] MEDS: Lidocaine 5% Patch TD SCH (09:00)
[2018-09-27] MEDS: Docusate-Senna 50 mg-8.6 mg Tab PO SCH ×3 (09:00→17:23)
[2018-09-27] MEDS: Mag&Al/Simet/Diphen/Lido 237 ML KIT PO SCH ×3 (09:01→17:23)
[2018-09-27] MEDS ORDERED: Lidocaine 5% Patch TD SCH ×2 (10:00→20:00)
--- NOTE | 2018-09-27 13:20 | CP.CCUPN ---
<Chung Teixeira - Last Filed: 09/27/18 18:49> CCU Subjective - Physician Review Subjective (Free Text): PGY-1 ICU consult note for Dr Coello service Patient is seen and examined at bedside today. Patient appears comfortable surrounded by members of her family. Patient states she currently does not have any pain. Patient remains NPO for OR today. Patient had a large, loose bowel movement this am. Patient denies chest pain, abdominal pain, shortness of breath, nausea or vomiting. Critical Care Time Spent (in minutes): 40 CCU Objective - Vital Signs / Intake & Output Vital Signs (Last 4 hours): Vital Signs Temp Pulse Resp BP Pulse Ox 09/27/18 12:01 92 H 18 153/74 H 98 09/27/18 12:00 98.6 F 16 09/27/18 11:01 99 H 20 162/75 H 99 09/27/18 10:01 92 H 10 L 159/99 H 94 L Intake and Output (Last 8hrs): Intake & Output 09/26/18 09/27/18 09/27/18 22:59 06:59 14:59 Intake Total 663.5 330.2 100 Output Total 1100 725 390 Balance -436.5 -394.8 -290 Weight 134 lb 9.6 oz Intake: IV 246.2 Intake, IV Amount 173.5 84.0 100 Left Forearm 73.5 84.0 100 Right Wrist 100 Oral 490 Output: Urine 1100 725 390 Urethral (Funez) 1100 725 390 - Physical Exam Head: Positive for: Atraumatic, Normocephalic Pupils: Positive for: PERRL Extroacular Muscles: Positive for: EOMI Conjunctiva: Positive for: Normal Mouth: Positive for: Moist Mucous Membranes Neck: Positive for: Normal Range of Motion Respiratory/Chest: Positive for: Clear to Auscultation Cardiovascular: Positive for: Regular Rate and Rhythm, Normal S1, S2 Abdomen: Positive for: Normal Bowel Sounds Upper Extremity: Positive for: Normal Inspection. Negative for: Edema Lower Extremity: Positive for: Tenderness (LEft LE ), Other (Doppler pulses noted right DP, PT, no doppler pulses noted on left DP, PT, molten cold left LE) Neurological: Positive for: CN II-XII Intact Skin: Positive for: Warm, Dry Psychiatric: Positive for: Alert, Oriented x 3 - Medications Active Medications: Active Medications Generic Name Dose Route Start Last Admin Trade Name Freq PRN Reason Stop Dose Admin Amlodipine Besylate 5 mg 09/18/18 10:00 09/27/18 09:00 Norvasc PO 5 mg DAILY VIVIAN Administration Docusate Sodium 100 mg 09/21/18 10:00 09/27/18 09:01 Colace PO 100 mg BID VIVIAN Administration Folic Acid 1 mg 09/19/18 10:00 09/27/18 09:00 Folic Acid PO 1 mg DAILY VIVIAN Administration Hydralazine HCl 25 mg 09/24/18 13:18 09/26/18 21:37 Apresoline PO 25 mg Q6H PRN Administration for SBP >160 Heparin Sodium/Sodium Chloride 25,000 units in 250 mls @ 9.389 mls/hr 09/26/18 00:30 09/27/18 06:00 Heparin 91050 Units/250ml 1/2 Normal Saline IV 0 units/kg/hr .Q24H PRN 0 mls/hr PROTOCOL Titration Protocol 15 UNITS/KG/HR Acetaminophen 1,000 mg/ 100 mls @ 400 mls/hr 09/26/18 16:00 09/27/18 09:54 Miscellaneous IV 09/27/18 16:01 400 mls/hr Q6H VIVIAN Administration Ketorolac Tromethamine 30 mg 09/26/18 14:00 09/26/18 18:29 Toradol IVP 30 mg Q6 PRN Administration Pain, severe (8-10) Lidocaine 1 ea 09/26/18 20:00 09/27/18 09:00 Lidoderm TD Not Given DAILY VIVIAN Losartan Potassium 25 mg 09/18/18 10:00 09/27/18 09:00 Cozaar PO 25 mg DAILY VIVIAN Administration Ondansetron HCl 4 mg 09/24/18 20:33 09/26/18 11:17 Zofran Inj IVP 4 mg Q6H PRN Administration Nausea/Vomiting Pantoprazole Sodium 40 mg 09/25/18 10:00 09/27/18 09:00 Protonix Inj IVP 40 mg DAILY VIVIAN Administration Polyethylene Glycol 17 gm 09/23/18 11:12 09/26/18 21:48 Miralax PO 17 gm HS PRN Administration Constipation Saliva Substitute 5 ml 09/21/18 10:00 09/27/18 09:01 First Magic Mouthwash PO 5 ml TID VIVIAN Administration Senna/Docusate Sodium 2 tab 09/26/18 14:00 09/27/18 09:00 Senokot S 50 Mg-8.6 Mg PO 2 tab TID VIVIAN Administration Trazodone HCl 50 mg 09/18/18 22:00 09/26/18 21:37 Desyrel PO 50 mg HS VIVIAN Administration - Patient Studies Lab Studies: Lab Studies 09/27/18 09/27/18 09/27/18 Range/Units 08:13 06:08 06:08 WBC 14.3 H (4.8-10.8) K/uL RBC 3.72 L (3.80-5.20) Mil/uL Hgb 10.2 L (11.0-16.0) g/dL Hct 31.5 L (34.0-47.0) % MCV 84.8 (81.0-99.0) fL MCH 27.3 (27.0-31.0) pg MCHC 32.2 L (33.0-37.0) g/dL RDW 18.0 H (11.5-14.5) % Plt Count 597 H (130-400) K/uL MPV 7.8 (7.2-11.7) fL Neut % (Auto) 85.9 H (50.0-75.0) % Lymph % (Auto) 5.2 L (20.0-40.0) % Jackson % (Auto) 6.9 (0.0-10.0) % Eos % (Auto) 1.6 (0.0-4.0) % Baso % (Auto) 0.4 (0.0-2.0) % Neut # (Auto) 12.2 H (1.8-7.0) K/uL Lymph # (Auto) 0.7 L (1.0-4.3) K/uL Jackson # (Auto) 1.0 H (0.0-0.8) K/uL Eos # (Auto) 0.2 (0.0-0.7) K/uL Baso # (Auto) 0.1 (0.0-0.2) K/uL Neutrophils % (Manual) 76 H (50-75) % Band Neutrophils % 5 H (0-2) % Lymphocytes % (Manual) 6 L (20-40) % Monocytes % (Manual) 10 (0-10) % Eosinophils % (Manual) 1 (0-4) % Myelocytes % 2 H (0-0) % Platelet Estimate Increased H (NORMAL) Large Platelets Present Giant Platelets Present Hypochromasia (manual) Slight Poikilocytosis (manual Slight Anisocytosis (manual) Slight Microcytosis (manual) Slight Macrocytosis (manual) Slight Target Cells Slight Ovalocytes Slight Paul Cells Slight Acanthocytes (Spur) Slight APTT 55 H (21-34) SECONDS Sodium (132-148) mmol/L Potassium (3.6-5.2) mmol/L Chloride (98-107) mmol/L Carbon Dioxide (22-30) mmol/L Anion Gap (10-20) BUN (7-17) mg/dL Creatinine (0.7-1.2) mg/dL Est GFR ( Amer) Est GFR (Non-Af Amer) Random Glucose (65-105) mg/dL Calcium (8.6-10.4) mg/dl Phosphorus (2.5-4.5) mg/dL Magnesium (1.6-2.3) mg/dL Total Bilirubin (0.2-1.3) mg/dL AST (14-36) U/L ALT (9-52) U/L Alkaline Phosphatase (38-126) U/L Total Protein (6.3-8.3) g/dL Albumin (3.5-5.0) g/dL Globulin (2.2-3.9) gm/dL Albumin/Globulin Ratio (1.0-2.1) Blood Type A POSITIVE Antibody Screen Negative 09/27/18 09/26/18 09/26/18 Range/Units 06:00 21:33 17:33 WBC (4.8-10.8) K/uL RBC (3.80-5.20) Mil/uL Hgb (11.0-16.0) g/dL Hct (34.0-47.0) % MCV (81.0-99.0) fL MCH (27.0-31.0) pg MCHC (33.0-37.0) g/dL RDW (11.5-14.5) % Plt Count (130-400) K/uL MPV (7.2-11.7) fL Neut % (Auto) (50.0-75.0) % Lymph % (Auto) (20.0-40.0) % Jackson % (Auto) (0.0-10.0) % Eos % (Auto) (0.0-4.0) % Baso % (Auto) (0.0-2.0) % Neut # (Auto) (1.8-7.0) K/uL Lymph # (Auto) (1.0-4.3) K/uL Jackson # (Auto) (0.0-0.8) K/uL Eos # (Auto) (0.0-0.7) K/uL Baso # (Auto) (0.0-0.2) K/uL Neutrophils % (Manual) (50-75) % Band Neutrophils % (0-2) % Lymphocytes % (Manual) (20-40) % Monocytes % (Manual) (0-10) % Eosinophils % (Manual) (0-4) % Myelocytes % (0-0) % Platelet Estimate (NORMAL) Large Platelets Giant Platelets Hypochromasia (manual) Poikilocytosis (manual Anisocytosis (manual) Microcytosis (manual) Macrocytosis (manual) Target Cells Ovalocytes Hackberry Cells Acanthocytes (Spur) APTT 57 H D 68 H D (21-34) SECONDS Sodium 130 L (132-148) mmol/L Potassium 4.6 (3.6-5.2) mmol/L Chloride 97 L (98-107) mmol/L Carbon Dioxide 29 (22-30) mmol/L Anion Gap 9 L (10-20) BUN 17 (7-17) mg/dL Creatinine 0.7 (0.7-1.2) mg/dL Est GFR ( Amer) > 60 Est GFR (Non-Af Amer) > 60 Random Glucose 151 H (65-105) mg/dL Calcium 8.8 (8.6-10.4) mg/dl Phosphorus 3.1 (2.5-4.5) mg/dL Magnesium 2.6 H (1.6-2.3) mg/dL Total Bilirubin 0.4 (0.2-1.3) mg/dL AST 160 H (14-36) U/L ALT 47 (9-52) U/L Alkaline Phosphatase 83 (38-126) U/L Total Protein 6.1 L (6.3-8.3) g/dL Albumin 3.3 L (3.5-5.0) g/dL Globulin 2.7 (2.2-3.9) gm/dL Albumin/Globulin Ratio 1.2 (1.0-2.1) Blood Type Antibody Screen Laboratory Results - last 24 hr 09/26/18 09/26/18 09/27/18 17:33 21:33 06:00 WBC RBC Hgb Hct MCV MCH MCHC RDW Plt Count MPV Neut % (Auto) Lymph % (Auto) Jackson % (Auto) Eos % (Auto) Baso % (Auto) Neut # (Auto) Lymph # (Auto) Jackson # (Auto) Eos # (Auto) Baso # (Auto) Neutrophils % (Manual) Band Neutrophils % Lymphocytes % (Manual) Monocytes % (Manual) Eosinophils % (Manual) Myelocytes % Platelet Estimate Large Platelets Giant Platelets Hypochromasia (manual) Poikilocytosis (manual Anisocytosis (manual) Microcytosis (manual) Macrocytosis (manual) Target Cells Ovalocytes Hackberry Cells Acanthocytes (Spur) APTT 68 H D 57 H D Sodium 130 L Potassium 4.6 Chloride 97 L Carbon Dioxide 29 Anion Gap 9 L BUN 17 Creatinine 0.7 Est GFR ( Amer) > 60 Est GFR (Non-Af Amer) > 60 Random Glucose 151 H Calcium 8.8 Phosphorus 3.1 Magnesium 2.6 H Total Bilirubin 0.4 AST 160 H ALT 47 Alkaline Phosphatase 83 Total Protein 6.1 L Albumin 3.3 L Globulin 2.7 Albumin/Globulin Ratio 1.2 Blood Type Antibody Screen 09/27/18 09/27/18 09/27/18 06:08 06:08 08:13 WBC 14.3 H RBC 3.72 L Hgb 10.2 L Hct 31.5 L MCV 84.8 MCH 27.3 MCHC 32.2 L RDW 18.0 H Plt Count 597 H MPV 7.8 Neut % (Auto) 85.9 H Lymph % (Auto) 5.2 L Jackson % (Auto) 6.9 Eos % (Auto) 1.6 Baso % (Auto) 0.4 Neut # (Auto) 12.2 H Lymph # (Auto) 0.7 L Jackson # (Auto) 1.0 H Eos # (Auto) 0.2 Baso # (Auto) 0.1 Neutrophils % (Manual) 76 H Band Neutrophils % 5 H Lymphocytes % (Manual) 6 L Monocytes % (Manual) 10 Eosinophils % (Manual) 1 Myelocytes % 2 H Platelet Estimate Increased H Large Platelets Present Giant Platelets Present Hypochromasia (manual) Slight Poikilocytosis (manual Slight Anisocytosis (manual) Slight Microcytosis (manual) Slight Macrocytosis (manual) Slight Target Cells Slight Ovalocytes Slight Hackberry Cells Slight Acanthocytes (Spur) Slight APTT 55 H Sodium Potassium Chloride Carbon Dioxide Anion Gap BUN Creatinine Est GFR ( Amer) Est GFR (Non-Af Amer) Random Glucose Calcium Phosphorus Magnesium Total Bilirubin AST ALT Alkaline Phosphatase Total Protein Albumin Globulin Albumin/Globulin Ratio Blood Type A POSITIVE Antibody Screen Negative Critical Care Progress Note - Nutrition Nutrition: Nutrition Category Date Time Status NPO Diet [DIET] Diets 09/27/18 Breakfast Active Assessment/Plan - Assessment and Plan (Free Text) Plan: Patient is a 72 year old female with PMHx of HTN, GERD, HLD, RLE DVT s/p embolectomy in 2008, retroperitoneal bleed, admitted to hospital for occlusion of left popliteal artery. Vascular surgery on case performed b/l femoral embolectomy with patch closure right common fem and balloon angioplasty left ant tibial and left peroneal with thrombolysis left ant tibial and left peroneal, continued on heparin drip transferred to ICU for further management. Further surgical intervention on 09/23 for left popliteal thrombectomy with angiojet. Patient has pulses by doppler in right DP and PT; currently no palpable or dopplerable pulses in left DP or PT. Patient left lower extremity is cold and molten in appearance. Patient to OR today for left lower extremity amputation, BKA vs AKA. Neuro - AAOx3 - no acute issues Cardiac - Continue Heparin dripDVT protocol per surgery - Coag today: PTT 55 - Hx of HTNcontinue Norvasc and Cozaar - Hydralazine 25mg PRN for HTN Pulm - O2 100% on NC 3L - no acute issues GI - Constipation, improving--- 1 BM today - continue colace, Miralax, Senokot - NPO for OR today - Reflex Esophagitis continue Protonix - Zofran PRN for nausea - f/u GI recs Renal - BUN/Cr 17/0.7, continue to monitor - no acute issues Heme - H/H today 10.2/31.5 - plt count 597 - monitor CBC ID - Afebrile - WBC 14.3 today - continue to monitor CBC Vascular - POD #4 s/p Left popliteal thrombectomy - POD #8 s/p b/l femoral embolectomy/thrombectomy 09/19 - continue Heparin Drip - Per surgery, amputation of LLE today - pain control - neurovascular check Q2H PPx - for pain IV tylenol Q6 VIVIAN and Toradol 30mg IVP Q6 PRN - DVT ppxon heparin drip - GI ppx- on Protonix Plan discussed with Dr. Oumou Teixeira, PGY-1 - Date & Time Date: 09/27/18 Time: 10:00 <Federica Holly - Last Filed: 09/30/18 08:56> Critical Care Progress Note - Nutrition Nutrition: Nutrition Category Date Time Status Heart Healthy Diet [DIET] Diets 09/27/18 Dinner Active Addendum Addendum: pt is managed in ICU post op c/o pain continue to watch pain control <Charlie Coello - Last Filed: 09/30/18 10:01> Critical Care Progress Note - Nutrition Nutrition: Nutrition Category Date Time Status Heart Healthy Diet [DIET] Diets 09/27/18 Dinner Active Attending/Attestation - Attestation I have personally seen and examined this patient.: Yes I have fully participated in the care of the patient.: Yes I have reviewed all pertinent clinical information: Yes Notes (Text): Today: Thursday, September 27, 2018 The Patient was seen and examined at the bedside, Medical records reviewed, and management issues were discussed and formulated with the house staff. I have reviewed all the relevant clinical, laboratory, hemodynamic, radiographic data and medications Events reviewed Pain issues, skin care, head of the bed elevation, glycemic control were addressed. Agree with above resident's assessment and treatment plans of care as transcribed in Dr. Teixeira's note.
--- NOTE | 2018-09-27 14:23 | CP.PCM.PN ---
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 LLE Pending amputation: for OR today No fevers or chills NSR on EKG Objective - Vital Signs/Intake and Output Vital Signs (last 24 hours): Temp Pulse Resp BP Pulse Ox 98.6 F 92 H 18 153/74 H 98 09/27/18 12:00 09/27/18 12:01 09/27/18 12:01 09/27/18 12:01 09/27/18 13:41 Intake and Output: 09/27/18 09/27/18 06:59 18:59 Intake Total 612.2 100 Output Total 1025 390 Balance -412.8 -290 - Medications Medications: Current Medications Amlodipine Besylate (Norvasc) 5 mg PO DAILY [facility] Last Admin: 09/27/18 09:00 Dose: 5 mg Docusate Sodium (Colace) 100 mg PO BID [facility] Last Admin: 09/27/18 09:01 Dose: 100 mg Folic Acid (Folic Acid) 1 mg PO DAILY [facility] Last Admin: 09/27/18 09:00 Dose: 1 mg Hydralazine HCl (Apresoline) 25 mg PO Q6H PRN PRN Reason: for SBP >160 Last Admin: 09/26/18 21:37 Dose: 25 mg Heparin Sodium/Sodium Chloride (Heparin 85677 Units/250ml 1/2 Normal Saline) 25,000 units in 250 mls @ 9.389 mls/hr IV .Q24H PRN; Protocol PRN Reason: PROTOCOL Last Titration: 09/27/18 06:00 Dose: 0 units/kg/hr, 0 mls/hr Acetaminophen 1,000 mg/ (Miscellaneous) 100 mls @ 400 mls/hr IV Q6H [facility] Stop: 09/27/18 16:01 Last Admin: 09/27/18 09:54 Dose: 400 mls/hr Ketorolac Tromethamine (Toradol) 30 mg IVP Q6 PRN PRN Reason: Pain, severe (8-10) Last Admin: 09/26/18 18:29 Dose: 30 mg Lidocaine (Lidoderm) 1 ea TD DAILY [facility] Last Admin: 09/27/18 09:00 Dose: Not Given Losartan Potassium (Cozaar) 25 mg PO DAILY [facility] Last Admin: 09/27/18 09:00 Dose: 25 mg Ondansetron HCl (Zofran Inj) 4 mg IVP Q6H PRN PRN Reason: Nausea/Vomiting Last Admin: 09/26/18 11:17 Dose: 4 mg Pantoprazole Sodium (Protonix Inj) 40 mg IVP DAILY [facility] Last Admin: 09/27/18 09:00 Dose: 40 mg Polyethylene Glycol (Miralax) 17 gm PO HS PRN PRN Reason: Constipation Last Admin: 09/26/18 21:48 Dose: 17 gm Saliva Substitute (First Magic Mouthwash) 5 ml PO TID [facility] Last Admin: 09/27/18 09:01 Dose: 5 ml Senna/Docusate Sodium (Senokot S 50 Mg-8.6 Mg) 2 tab PO TID [facility] Last Admin: 09/27/18 09:00 Dose: 2 tab Trazodone HCl (Desyrel) 50 mg PO HS [facility] Last Admin: 09/26/18 21:37 Dose: 50 mg - Labs Labs: 09/27/18 06:08 09/27/18 06:00 PT 11.7 SECONDS (9.7-12.2) 09/26/18 05:49 INR 1.1 09/26/18 05:49 APTT 55 SECONDS (21-34) H 09/27/18 06:08 - Constitutional Appears: No Acute Distress - Head Exam Head Exam: ATRAUMATIC, NORMAL INSPECTION, NORMOCEPHALIC - Eye Exam Eye Exam: EOMI, Normal appearance. absent: Scleral icterus - ENT Exam ENT Exam: Mucous Membranes Moist, Normal Oropharynx - Neck Exam Neck Exam: Full ROM, Normal Inspection - Respiratory Exam Respiratory Exam: Clear to Ausculation Bilateral. absent: Rhonchi, Wheezes - Cardiovascular Exam Cardiovascular Exam: REGULAR RHYTHM, RRR, +S1, +S2. absent: Gallop, JVD, Rubs, +S4, Murmur - GI/Abdominal Exam GI & Abdominal Exam: Soft, Normal Bowel Sounds. absent: Tenderness - Extremities Exam Extremities Exam: absent: Normal Inspection (LLE: cold limb up to mid calf absent pulses B/L DP/AT and L. POP) - Neurological Exam Neurological Exam: Alert, Awake, Oriented x3 - Psychiatric Exam Psychiatric exam: Normal Affect, Normal Mood Assessment and Plan - Assessment and Plan (Free Text) Assessment: Patient with hx of RSFA acute trombotic occlusion in 2008 RX with embolectomy and since has been on antiplatelet and coumadin. > Recent need for cessation of anticoagulation due to retroperitoneal bleed and right adrenal hemmorhage Aug 2018 > complicated by recurrence of thrombotic occlusion in the LE's. Now s/p Bilateral Transfemoral Embolectomy. Patch closure Right Common Femoral. Balloon Angioplasty Left Anterior Tibial and Left Peroneal. Thrombolysis Left Anterior Tibial and Left Peroneal. Repeat atherectomy and TPA 09/23/18 ---> again loss of L. foot DP and AT pulse had re-eval in collaborating supervising physician yesterday * Amputation is now planned BKA versus AKA for 09/27/18 > Heme w/u done [thrombocytosis, work up showing JEANNINE-2 mutation positive] may be starting Hydrea Rx > Additional suspicion of pancreatic duct dilation (seen by GI: no need for intervention) and possibility of renal and splenic infarcts on CT/abdominal imaging Plan: Cont heparin GTT -> H/H stable 10.2, PLT 597 Eventual will need to transition into a NOAC or coumadin per HEME/ONC suggestion Monitor for any recurrence of retroperotoneal bleed or GI/Abd sx's BP is elevated ECHO: normal LVEF and wall motion On norvasc and cozaar additional norvasc 5 po IF NEEDED Hydralazine 25mg PRN for SBP >160 [id number] pain management FOR aMPUTATION TODAY
[2018-09-27] MEDS ORDERED: Propofol 10 mg/ml Inj (20 ML) ONE (15:09)
[2018-09-27] MEDS ORDERED: Midazolam 2 MG/2 ML VIAL ONE (15:09)
[2018-09-27] MEDS ORDERED: ceFAZolin 1 gm in NS 1 GM/100 ML BAG IVPB ONE (15:22)
--- NOTE | 2018-09-27 15:52 | PCM.SURG1 ---
Surgeon's Initial Post Op Note - Surgeon's Notes Surgeon: norma Ms Sql Dba: 0 Type of Anesthesia: General LMA Anesthesia Administered By: frannie Pre-Operative Diagnosis: gangrene Operative Findings: borderline viability of muscle -but viable. clot in tibial vessels Post-Operative Diagnosis: same Operation Performed: left below knee amputation Specimen/Specimens Removed: leg Estimated Blood Loss: EBL {In ML}: 150 Blood Products Given: N/A Drains Used: No Drains Post-Op Condition: Good Date of Surgery/Procedure: 09/27/18 Time of Surgery/Procedure: 15:52
[2018-09-27] MEDS ORDERED: HYDROmorphone 0.5 mg/0.5 ml ISec ONE (16:06)
[2018-09-27] MEDS: HYDROmorphone 0.5 mg/0.5 ml ISec IVP PRN ×4 (16:07→16:43)
[2018-09-27] MEDS ORDERED: HYDROmorphone 0.5 mg/0.5 ml ISec IVP PRN (16:29)
[2018-09-27] MEDS ORDERED: DiphenhydrAMINE 50 mg/ml Inj IVP STA (18:54)
[2018-09-27] MEDS ORDERED: Enalaprilat 2.5 MG/2 ML IV ONE (21:20)
--- NOTE | 2018-09-28 02:40 | OP ---
PROCEDURE DATE: 09/27/2018 PREOPERATIVE DIAGNOSIS: Gangrene of left foot. POSTOPERATIVE DIAGNOSIS: Gangrene of left foot. PROCEDURE CARRIED OUT: Left below-knee amputation. SURGEON: Zak Pichardo Jr., MD TECHNICAL OPERATIONS SPECIALIST: None. ANESTHESIOLOGIST: Rosa TYPE OF ANESTHESIA: General anesthesia. INDICATIONS: A 72-year-old woman with history of coagulopathy, presented with ischemic left leg, underwent two interventions, which ultimately were unsuccessful. This included thrombolysis, AngioJet, atherectomy, balloon angioplasty, . OPERATIVE FINDINGS: There were residual clots in the arteries that were identified. DESCRIPTION OF PROCEDURE: The patient was given general anesthesia and intravenous antibiotics. The area to be amputated was marked. The leg had been marked previously. We then made an incision with standard below-knee amputation. The flaps appeared viable. There was no pulsatile flow at the knee. After we had done this, we then obtained hemostasis. We then closed the wounds with Monocryl and nylon sutures and closed the skin with 5-0 nylon sutures and skin clips. Blood loss for the procedure was 150 mL. Operation carried out was left below-knee amputation. Circulation to the area is marginal. May require revision to above-knee amputation. At this time, all flaps appeared viable, and all the tissue appeared viable. Zak Pichardo Jr., MD MTDD
[2018-09-28 05:47] LABS: BASO % 0.4 % (0.0-2.0); EOS # 0.2 K/uL (0.0-0.7); EOS % 1.8 % (0.0-4.0); HEMOGLOBIN 9.7 g/dL (11.0-16.0); LYMPH # 1.3 K/uL (1.0-4.3); MEAN CORPUSCULAR HEMOGLOBIN 28.2 pg (27.0-31.0); MEAN CORPUSCULAR HGB CONC 33.1 g/dL (33.0-37.0); MEAN PLATELET VOLUME 7.5 fL (7.2-11.7); MONO # 0.8 K/uL (0.0-0.8); MONO % 7.9 % (0.0-10.0); NEUT # 8.2 K/uL (1.8-7.0); NEUT % 77.9 % (50.0-75.0); NRBC % 0.1 % (0.0-2.0); RBC 3.43 Mil/uL (3.80-5.20); RED CELL DISTRIBUTION WIDTH 18.4 % (11.5-14.5); WHITE BLOOD COUNT 10.5 K/uL (4.8-10.8)
[2018-09-28 06:04] LABS: ALB/GLOB RATIO 1.2 (1.0-2.1); ALBUMIN 3.1 g/dL (3.5-5.0); ALT/SGPT 54 U/L (9-52); AST/SGOT 115 U/L (14-36); BLOOD UREA NITROGEN 14 mg/dL (7-17); CALCIUM 8.7 mg/dl (8.6-10.4); GFR NON-AFRICAN AMERICAN > 60
--- NOTE | 2018-09-28 07:27 | CP.PCM.PN ---
Subjective - Date & Time of Evaluation Date of Evaluation: 09/28/18 Time of Evaluation: 08:00 - Subjective Subjective: POD #1 s/p BKA Objective - Vital Signs/Intake and Output Vital Signs (last 24 hours): Temp Pulse Resp BP Pulse Ox 98.3 F 82 9 L 133/58 L 100 09/28/18 00:00 09/28/18 07:01 09/28/18 07:01 09/28/18 07:01 09/28/18 07:01 Intake and Output: 09/28/18 09/28/18 06:59 18:59 Intake Total 457.3 9.4 Output Total 840 Balance -382.7 9.4 - Medications Medications: Current Medications Amlodipine Besylate (Norvasc) 5 mg PO DAILY [facility] Last Admin: 09/27/18 09:00 Dose: 5 mg Docusate Sodium (Colace) 100 mg PO BID [facility] Last Admin: 09/27/18 17:23 Dose: 100 mg Folic Acid (Folic Acid) 1 mg PO DAILY [facility] Last Admin: 09/27/18 09:00 Dose: 1 mg Hydralazine HCl (Apresoline) 25 mg PO Q6H PRN PRN Reason: for SBP >160 Last Admin: 09/27/18 19:07 Dose: 25 mg Hydromorphone HCl (Dilaudid) 2 mg IVP Q4H [facility] Last Admin: 09/28/18 03:50 Dose: 2 mg Hydromorphone HCl (Dilaudid) 0.5 mg IVP Q5M PRN PRN Reason: Pain, moderate (4-7) Heparin Sodium/Sodium Chloride (Heparin 63814 Units/250ml 1/2 Normal Saline) 25,000 units in 250 mls @ 9.389 mls/hr IV .Q24H PRN; Protocol PRN Reason: PROTOCOL Last Admin: 09/27/18 22:15 Dose: 15 units/kg/hr, 9.389 mls/hr Ketorolac Tromethamine (Toradol) 30 mg IVP Q6 PRN PRN Reason: Pain, severe (8-10) Last Admin: 09/28/18 06:44 Dose: 30 mg Losartan Potassium (Cozaar) 25 mg PO DAILY [facility] Last Admin: 09/27/18 09:00 Dose: 25 mg Ondansetron HCl (Zofran Inj) 4 mg IVP Q6H PRN PRN Reason: Nausea/Vomiting Last Admin: 09/26/18 11:17 Dose: 4 mg Pantoprazole Sodium (Protonix Inj) 40 mg IVP DAILY [facility] Last Admin: 09/27/18 09:00 Dose: 40 mg Polyethylene Glycol (Miralax) 17 gm PO HS PRN PRN Reason: Constipation Last Admin: 09/26/18 21:48 Dose: 17 gm Saliva Substitute (First Magic Mouthwash) 5 ml PO TID [facility] Last Admin: 09/27/18 17:23 Dose: 5 ml Senna/Docusate Sodium (Senokot S 50 Mg-8.6 Mg) 2 tab PO TID [facility] Last Admin: 09/27/18 17:23 Dose: 2 tab Trazodone HCl (Desyrel) 50 mg PO HS [facility] Last Admin: 09/27/18 22:45 Dose: 50 mg - Labs Labs: 09/28/18 05:43 09/28/18 05:43 PT 11.7 SECONDS (9.7-12.2) 09/26/18 05:49 INR 1.1 09/26/18 05:49 APTT 49 SECONDS (21-34) H D 09/28/18 05:43 - Constitutional Appears: Well, Non-toxic - Head Exam Head Exam: ATRAUMATIC, NORMAL INSPECTION - Eye Exam Eye Exam: PERRL. absent: Scleral icterus - ENT Exam ENT Exam: Mucous Membranes Moist, Normal Oropharynx - Neck Exam Neck Exam: Full ROM. absent: Thyromegaly - Respiratory Exam Respiratory Exam: Clear to Ausculation Bilateral, NORMAL BREATHING PATTERN - Cardiovascular Exam Cardiovascular Exam: REGULAR RHYTHM, +S1, +S2, Murmur. absent: JVD - GI/Abdominal Exam GI & Abdominal Exam: Normal Bowel Sounds. absent: Organomegaly - Extremities Exam Extremities Exam: absent: Pedal Edema Additional comments: Left BKA dressing C/D/I - Neurological Exam Neurological Exam: CN II-XII Intact, Oriented x3 - Psychiatric Exam Psychiatric exam: Normal Affect, Normal Mood Assessment and Plan - Assessment and Plan (Free Text) Assessment: 72 year old female with acute limb ischemia s/p mutlipe endovascular attempts at limb salvage now s/p Left BKA, pain management Hypercoagulabe state on iV heparin, Hem onc to determin optimal chemotherapy to reduce further thrombosis risk to other vascular beds.
[2018-09-28] MEDS: Mag&Al/Simet/Diphen/Lido 237 ML KIT PO SCH ×2 (10:55→13:16)
[2018-09-28] MEDS: Docusate-Senna 50 mg-8.6 mg Tab PO SCH ×2 (10:55→13:15)
--- NOTE | 2018-09-28 11:33 | CP.CCUPN ---
CCU Subjective - Physician Review Events Since Last Encounter (Free Text): 09/28/18 11:32 Patient is morning was complaining of more pain. The dressing of the wound is clear. Seen by surgery team already No nausea no vomiting. Patient is otherwise feeling well. No bowel movements today. On examination: 99/min 144-65 100% saturation Chest good air entry regular [place] nontender abdomen. Labs reviewed Currently on heparin drip. We will continue the current treatment. Pain control. Out of bed to chair. Remove the Funez catheter. We will follow the patient CCU Objective - Vital Signs / Intake & Output Intake and Output (Last 8hrs): Intake & Output 09/27/18 09/28/18 09/28/18 22:59 06:59 14:59 Intake Total 862.1 75.2 9.4 Output Total 505 660 Balance 357.1 -584.8 9.4 Weight 133 lb 4.8 oz Intake: IV 550 Intake, IV Amount 107.1 75.2 9.4 Left Forearm 107.1 75.2 9.4 Oral 175 Tube Feeding 30 Output: Urine 505 660 Urethral (Funez) 405 660 Other: # Bowel Movements 0 - Physical Exam Head: Positive for: Atraumatic, Normocephalic Pupils: Positive for: PERRL Extroacular Muscles: Positive for: EOMI Conjunctiva: Positive for: Normal Mouth: Positive for: Moist Mucous Membranes Neck: Positive for: Normal Range of Motion Respiratory/Chest: Positive for: Clear to Auscultation Cardiovascular: Positive for: Regular Rate and Rhythm, Normal S1, S2 Abdomen: Positive for: Normal Bowel Sounds Upper Extremity: Positive for: Normal Inspection. Negative for: Edema Lower Extremity: Positive for: Tenderness (LEft LE ), Other (Doppler pulses noted right DP, PT, no doppler pulses noted on left DP, PT, molten cold left LE) Neurological: Positive for: CN II-XII Intact Skin: Positive for: Warm, Dry Psychiatric: Positive for: Alert, Oriented x 3 - Medications Active Medications: Active Medications Generic Name Dose Route Start Last Admin Trade Name Freq PRN Reason Stop Dose Admin Amlodipine Besylate 5 mg 09/18/18 10:00 09/28/18 10:55 Norvasc PO 5 mg DAILY VIVIAN Administration Docusate Sodium 100 mg 09/21/18 10:00 09/28/18 10:55 Colace PO 100 mg BID VIVIAN Administration Folic Acid 1 mg 09/19/18 10:00 09/28/18 10:55 Folic Acid PO 1 mg DAILY VIVINA Administration Hydralazine HCl 25 mg 09/24/18 13:18 09/27/18 19:07 Apresoline PO 25 mg Q6H PRN Administration for SBP >160 Hydromorphone HCl 2 mg 09/27/18 16:00 09/28/18 11:26 Dilaudid IVP 2 mg Q4H VIVIAN Administration Hydromorphone HCl 0.5 mg 09/27/18 16:29 Dilaudid IVP Q5M PRN Pain, moderate (4-7) Heparin Sodium/Sodium Chloride 25,000 units in 250 mls @ 9.389 mls/hr 09/26/18 00:30 09/27/18 22:15 Heparin 97185 Units/250ml 1/2 Normal Saline IV 15 units/kg/hr .Q24H PRN 9.389 mls/hr PROTOCOL Administration Protocol 15 UNITS/KG/HR Ketorolac Tromethamine 30 mg 09/26/18 14:00 09/28/18 06:44 Toradol IVP 30 mg Q6 PRN Administration Pain, severe (8-10) Losartan Potassium 25 mg 09/18/18 10:00 09/28/18 10:55 Cozaar PO 25 mg DAILY VIVIAN Administration Ondansetron HCl 4 mg 09/24/18 20:33 09/26/18 11:17 Zofran Inj IVP 4 mg Q6H PRN Administration Nausea/Vomiting Pantoprazole Sodium 40 mg 09/25/18 10:00 09/28/18 10:55 Protonix Inj IVP 40 mg DAILY VIVIAN Administration Polyethylene Glycol 17 gm 09/23/18 11:12 09/26/18 21:48 Miralax PO 17 gm HS PRN Administration Constipation Saliva Substitute 5 ml 09/21/18 10:00 09/28/18 10:55 First Magic Mouthwash PO 5 ml TID VIVIAN Administration Senna/Docusate Sodium 2 tab 09/26/18 14:00 09/28/18 10:55 Senokot S 50 Mg-8.6 Mg PO 2 tab TID VIVIAN Administration Trazodone HCl 50 mg 09/18/18 22:00 09/27/18 22:45 Desyrel PO 50 mg HS VIVIAN Administration - Patient Studies Lab Studies: Lab Studies 09/28/18 09/28/18 09/28/18 Range/Units 05:43 05:43 05:43 WBC 10.5 (4.8-10.8) K/uL RBC 3.43 L (3.80-5.20) Mil/uL Hgb 9.7 L (11.0-16.0) g/dL Hct 29.1 L (34.0-47.0) % MCV 85.0 (81.0-99.0) fL MCH 28.2 (27.0-31.0) pg MCHC 33.1 (33.0-37.0) g/dL RDW 18.4 H (11.5-14.5) % Plt Count 509 H (130-400) K/uL MPV 7.5 (7.2-11.7) fL Neut % (Auto) 77.9 H (50.0-75.0) % Lymph % (Auto) 12.0 L (20.0-40.0) % Winn % (Auto) 7.9 (0.0-10.0) % Eos % (Auto) 1.8 (0.0-4.0) % Baso % (Auto) 0.4 (0.0-2.0) % Neut # (Auto) 8.2 H (1.8-7.0) K/uL Lymph # (Auto) 1.3 (1.0-4.3) K/uL Winn # (Auto) 0.8 (0.0-0.8) K/uL Eos # (Auto) 0.2 (0.0-0.7) K/uL Baso # (Auto) 0.0 (0.0-0.2) K/uL APTT 49 H D (21-34) SECONDS Sodium 133 (132-148) mmol/L Potassium 4.4 (3.6-5.2) mmol/L Chloride 100 (98-107) mmol/L Carbon Dioxide 33 H (22-30) mmol/L Anion Gap 5 L (10-20) BUN 14 (7-17) mg/dL Creatinine 0.7 (0.7-1.2) mg/dL Est GFR ( Amer) > 60 Est GFR (Non-Af Amer) > 60 Random Glucose 117 H D (65-105) mg/dL Calcium 8.7 (8.6-10.4) mg/dl Phosphorus 3.6 (2.5-4.5) mg/dL Magnesium 2.4 H (1.6-2.3) mg/dL Total Bilirubin 0.2 (0.2-1.3) mg/dL AST 115 H D (14-36) U/L ALT 54 H (9-52) U/L Alkaline Phosphatase 73 (38-126) U/L Total Protein 5.7 L (6.3-8.3) g/dL Albumin 3.1 L (3.5-5.0) g/dL Globulin 2.6 (2.2-3.9) gm/dL Albumin/Globulin Ratio 1.2 (1.0-2.1) Blood Type Antibody Screen 09/27/18 09/27/18 Range/Units 22:28 08:13 WBC (4.8-10.8) K/uL RBC (3.80-5.20) Mil/uL Hgb (11.0-16.0) g/dL Hct (34.0-47.0) % MCV (81.0-99.0) fL MCH (27.0-31.0) pg MCHC (33.0-37.0) g/dL RDW (11.5-14.5) % Plt Count (130-400) K/uL MPV (7.2-11.7) fL Neut % (Auto) (50.0-75.0) % Lymph % (Auto) (20.0-40.0) % Winn % (Auto) (0.0-10.0) % Eos % (Auto) (0.0-4.0) % Baso % (Auto) (0.0-2.0) % Neut # (Auto) (1.8-7.0) K/uL Lymph # (Auto) (1.0-4.3) K/uL Winn # (Auto) (0.0-0.8) K/uL Eos # (Auto) (0.0-0.7) K/uL Baso # (Auto) (0.0-0.2) K/uL APTT 26 D (21-34) SECONDS Sodium (132-148) mmol/L Potassium (3.6-5.2) mmol/L Chloride (98-107) mmol/L Carbon Dioxide (22-30) mmol/L Anion Gap (10-20) BUN (7-17) mg/dL Creatinine (0.7-1.2) mg/dL Est GFR ( Amer) Est GFR (Non-Af Amer) Random Glucose (65-105) mg/dL Calcium (8.6-10.4) mg/dl Phosphorus (2.5-4.5) mg/dL Magnesium (1.6-2.3) mg/dL Total Bilirubin (0.2-1.3) mg/dL AST (14-36) U/L ALT (9-52) U/L Alkaline Phosphatase (38-126) U/L Total Protein (6.3-8.3) g/dL Albumin (3.5-5.0) g/dL Globulin (2.2-3.9) gm/dL Albumin/Globulin Ratio (1.0-2.1) Blood Type A POSITIVE Antibody Screen Negative Laboratory Results - last 24 hr 09/27/18 09/27/18 09/28/18 08:13 22:28 05:43 WBC 10.5 RBC 3.43 L Hgb 9.7 L Hct 29.1 L MCV 85.0 MCH 28.2 MCHC 33.1 RDW 18.4 H Plt Count 509 H MPV 7.5 Neut % (Auto) 77.9 H Lymph % (Auto) 12.0 L Winn % (Auto) 7.9 Eos % (Auto) 1.8 Baso % (Auto) 0.4 Neut # (Auto) 8.2 H Lymph # (Auto) 1.3 Winn # (Auto) 0.8 Eos # (Auto) 0.2 Baso # (Auto) 0.0 APTT 26 D Sodium Potassium Chloride Carbon Dioxide Anion Gap BUN Creatinine Est GFR ( Amer) Est GFR (Non-Af Amer) Random Glucose Calcium Phosphorus Magnesium Total Bilirubin AST ALT Alkaline Phosphatase Total Protein Albumin Globulin Albumin/Globulin Ratio Blood Type A POSITIVE Antibody Screen Negative 09/28/18 09/28/18 05:43 05:43 WBC RBC Hgb Hct MCV MCH MCHC RDW Plt Count MPV Neut % (Auto) Lymph % (Auto) Winn % (Auto) Eos % (Auto) Baso % (Auto) Neut # (Auto) Lymph # (Auto) Winn # (Auto) Eos # (Auto) Baso # (Auto) APTT 49 H D Sodium 133 Potassium 4.4 Chloride 100 Carbon Dioxide 33 H Anion Gap 5 L BUN 14 Creatinine 0.7 Est GFR ( Amer) > 60 Est GFR (Non-Af Amer) > 60 Random Glucose 117 H D Calcium 8.7 Phosphorus 3.6 Magnesium 2.4 H Total Bilirubin 0.2 AST 115 H D ALT 54 H Alkaline Phosphatase 73 Total Protein 5.7 L Albumin 3.1 L Globulin 2.6 Albumin/Globulin Ratio 1.2 Blood Type Antibody Screen Critical Care Progress Note - Nutrition Nutrition: Nutrition Category Date Time Status Heart Healthy Diet [DIET] Diets 09/27/18 Dinner Active
[2018-09-28] MEDS ORDERED: Oxycodone/Acetaminophen 5/325 mg Tab PO PRN (11:34)
[2018-09-28] MEDS ORDERED: HYDROmorphone 1 mg/ml ISec IVP PRN (11:35)
--- NOTE | 2018-09-28 11:59 | CP.PCM.PN ---
Subjective - Date & Time of Evaluation Date of Evaluation: 09/28/18 Time of Evaluation: 11:58 - Subjective Subjective: stable reviewed rehab plans with patient pain meds adjusted per discussion with nurse Objective - Vital Signs/Intake and Output Vital Signs (last 24 hours): Temp Pulse Resp BP Pulse Ox 98.3 F 82 9 L 133/58 L 100 09/28/18 00:00 09/28/18 07:01 09/28/18 07:01 09/28/18 07:01 09/28/18 07:01 Intake and Output: 09/28/18 09/28/18 06:59 18:59 Intake Total 457.3 9.4 Output Total 840 Balance -382.7 9.4 - Medications Medications: Current Medications Amlodipine Besylate (Norvasc) 5 mg PO DAILY [facility] Last Admin: 09/28/18 10:55 Dose: 5 mg Docusate Sodium (Colace) 100 mg PO BID [facility] Last Admin: 09/28/18 10:55 Dose: 100 mg Folic Acid (Folic Acid) 1 mg PO DAILY [facility] Last Admin: 09/28/18 10:55 Dose: 1 mg Gabapentin (Neurontin) 100 mg PO TID [facility] Hydralazine HCl (Apresoline) 25 mg PO Q6H PRN PRN Reason: for SBP >160 Last Admin: 09/27/18 19:07 Dose: 25 mg Hydromorphone HCl (Dilaudid) 1 mg IVP Q4H PRN PRN Reason: Pain, severe (8-10) Heparin Sodium/Sodium Chloride (Heparin 22999 Units/250ml 1/2 Normal Saline) 25,000 units in 250 mls @ 9.389 mls/hr IV .Q24H PRN; Protocol PRN Reason: PROTOCOL Last Admin: 09/27/18 22:15 Dose: 15 units/kg/hr, 9.389 mls/hr Ketorolac Tromethamine (Toradol) 15 mg IVP Q6 PRN PRN Reason: FOR MILD PAIN Losartan Potassium (Cozaar) 25 mg PO DAILY [facility] Last Admin: 09/28/18 10:55 Dose: 25 mg Ondansetron HCl (Zofran Inj) 4 mg IVP Q6H PRN PRN Reason: Nausea/Vomiting Last Admin: 09/26/18 11:17 Dose: 4 mg Oxycodone/Acetaminophen (Percocet 5/325 Mg Tab) 1 tab PO Q4H PRN PRN Reason: Pain, moderate (4-7) Stop: 10/01/18 11:35 Pantoprazole Sodium (Protonix Inj) 40 mg IVP DAILY [facility] Last Admin: 09/28/18 10:55 Dose: 40 mg Polyethylene Glycol (Miralax) 17 gm PO HS PRN PRN Reason: Constipation Last Admin: 09/26/18 21:48 Dose: 17 gm Saliva Substitute (First Magic Mouthwash) 5 ml PO TID [facility] Last Admin: 09/28/18 10:55 Dose: 5 ml Senna/Docusate Sodium (Senokot S 50 Mg-8.6 Mg) 2 tab PO TID [facility] Last Admin: 09/28/18 10:55 Dose: 2 tab Trazodone HCl (Desyrel) 50 mg PO HS [facility] Last Admin: 09/27/18 22:45 Dose: 50 mg - Labs Labs: 09/28/18 05:43 09/28/18 05:43 PT 11.7 SECONDS (9.7-12.2) 09/26/18 05:49 INR 1.1 09/26/18 05:49 APTT 49 SECONDS (21-34) H D 09/28/18 05:43
[2018-09-28 14:59] LABS: ARTERIAL BLOOD GAS HCO3 19.6 mmol/L (21-28); ARTERIAL BLOOD GAS O2 SAT 13.8 % (95-98); ARTERIAL BLOOD GAS PCO2 80 mm/Hg (35-45); ARTERIAL BLOOD GAS PH 7.14 (7.35-7.45); ARTERIAL BLOOD GAS PO2 14 mm/Hg (80-100); ARTERIAL BLOOD GAS TCO2 29.7 mmol/L (22-28)
[2018-09-28] MEDS ORDERED: Magnesium Sulfate 1 gm/2 ml Inj ONE (15:20)
[2018-09-28] MEDS ORDERED: Sodium Bicarbonate (8.4%) 50 Meq Syringe ONE (15:20)
[2018-09-28] MEDS ORDERED: Calcium Gluconate 4.65 mEq/10 ml Inj ONE (15:20)
[2018-09-28] MEDS ORDERED: Lidocaine 2% MPF (5 ml) Inj ONE (15:47)
[2018-09-28] MEDS ORDERED: Iodixanol 320 MG/ML 200 ML BOTTLE IV ONE (15:48)
--- NOTE | 2018-09-28 16:08 | CP.PCM.PRO ---
Pronouncement of Note - Clinical Findings Physical Exam: No Response Verbal/Painful Stimuli, Absent Peripheral Puls es{Carotid & Femoral}, Absent Heart & Breath Sounds, No Pupillary Light Reflex, Pupils Fixed & Dilated, Absence of Vital Signs - Pronouncement Time Time of Pronouncement of : 15:40 - Notifications Pronouncement Notifications: Family Notified, Atending Notified Certified Meeting Professional Notified: No - Autopsy Autopsy Requested: No - [place] [id number] Additional Comments: Certificate printed and placed in front of physical chart. Maynor Mcduffie D.O.
[2018-09-28 16:16] VITALS: BP 101/49; PULSE 135; RESP 39; O2SAT 72
[2018-09-28 16:17] VITALS: TEMP 97.7
--- NOTE | 2018-09-30 08:58 | CP.PCM.PN ---
Subjective - Date & Time of Evaluation Date of Evaluation: 09/23/18 Time of Evaluation: 18:00 - Subjective Subjective: pt had surgery today left leg thrombolysis post op pt c/o pain she will be managed in ICU pain control heparin drip monitor labs family at bed side Objective - Vital Signs/Intake and Output Vital Signs (last 24 hours): Temp Pulse Resp BP Pulse Ox 97.7 F 135 H 39 H 101/49 L 72 L 09/28/18 12:00 09/28/18 15:37 09/28/18 15:37 09/28/18 15:37 09/28/18 15:30 - Labs Labs: 09/28/18 05:43 09/28/18 05:43 PT 11.7 SECONDS (9.7-12.2) 09/26/18 05:49 INR 1.1 09/26/18 05:49 APTT 43 SECONDS (21-34) H D 09/28/18 12:43
--- NOTE | 2018-09-30 14:33 | CARD ---
APPROVED REPORT Date of service: 09/28/2018 EKG Measurement Heart [id number] <Conclusion> Sinus bradycardia ST elevation, consider inferior injury or acute infarct ST elevation, consider anterior injury or acute infarct ACUTE ID / STEMI Abnormal ECG
[2018-10-02 16:39] LABS: SOURCE Not Given
--- NOTE | 2018-10-04 18:20 | CP.PCM.DIS ---
Provider - Provider Date of Admission: 09/17/18 20:59 Attending physician: Federica Holly MD Consults: 09/18/18 00:25 Physician Consult Routine Comment: Consulting Provider: Zak Pichardo Jr. Consulting Physician: Zak Pichardo Jr. Reason for Consult: Retroperitoneal Bleed 09/18/18 00:27 Physician Consult Routine Comment: Consulting Provider: Nohemy Arriaza Consulting Physician: Nohemy Arriaza Reason for Consult: High Platlet Count 09/19/18 08:58 Gastroenterology Consult Routine Comment: Consulting Provider: Corey Alejo Consulting Physician: Corey Alejo Reason for Consult: pancreatic pathology Time Spent in preparation of Discharge (in minutes): 45 Hospital Course - Lab Results Lab Results: Micro Results 09/24/18 00:24 [facility] MRSA Culture (Admit) - Final MRSA NOT DETECTED 09/21/18 17:48 [facility] MRSA Culture - Final MRSA NOT DETECTED 09/20/18 06:29 [facility] MRSA Culture (Admit) - Final MRSA NOT DETECTED Most Recent Lab Values WBC 10.5 K/uL (4.8-10.8) 09/28/18 05:43 RBC 3.43 Mil/uL (3.80-5.20) L 09/28/18 05:43 Hgb 9.7 g/dL (11.0-16.0) L 09/28/18 05:43 Hct 29.1 % (34.0-47.0) L 09/28/18 05:43 MCV 85.0 fL (81.0-99.0) 09/28/18 05:43 MCH 28.2 pg (27.0-31.0) 09/28/18 05:43 MCHC 33.1 g/dL (33.0-37.0) 09/28/18 05:43 RDW 18.4 % (11.5-14.5) H 09/28/18 05:43 Plt Count 509 K/uL (130-400) H 09/28/18 05:43 MPV 7.5 fL (7.2-11.7) 09/28/18 05:43 Neut % (Auto) 77.9 % (50.0-75.0) H 09/28/18 05:43 Lymph % (Auto) 12.0 % (20.0-40.0) L 09/28/18 05:43 Carter % (Auto) 7.9 % (0.0-10.0) 09/28/18 05:43 Eos % (Auto) 1.8 % (0.0-4.0) 09/28/18 05:43 Baso % (Auto) 0.4 % (0.0-2.0) 09/28/18 05:43 Neut # (Auto) 8.2 K/uL (1.8-7.0) H 09/28/18 05:43 Lymph # (Auto) 1.3 K/uL (1.0-4.3) 09/28/18 05:43 Carter # (Auto) 0.8 K/uL (0.0-0.8) 09/28/18 05:43 Eos # (Auto) 0.2 K/uL (0.0-0.7) 09/28/18 05:43 Baso # (Auto) 0.0 K/uL (0.0-0.2) 09/28/18 05:43 Neutrophils % (Manual) 76 % (50-75) H 09/27/18 06:08 Band Neutrophils % 5 % (0-2) H 09/27/18 06:08 Lymphocytes % (Manual) 6 % (20-40) L 09/27/18 06:08 Reactive Lymphs % 2 % (0-0) H 09/26/18 05:49 Monocytes % (Manual) 10 % (0-10) 09/27/18 06:08 Eosinophils % (Manual) 1 % (0-4) 09/27/18 06:08 Myelocytes % 2 % (0-0) H 09/27/18 06:08 Platelet Estimate Increased (NORMAL) H 09/27/18 06:08 Large Platelets Present 09/27/18 06:08 Giant Platelets Present 09/27/18 06:08 Hypochromasia (manual) Slight 09/27/18 06:08 Poikilocytosis (manual Slight 09/27/18 06:08 Anisocytosis (manual) Slight 09/27/18 06:08 Microcytosis (manual) Slight 09/27/18 06:08 Macrocytosis (manual) Slight 09/27/18 06:08 Target Cells Slight 09/27/18 06:08 Ovalocytes Slight 09/27/18 06:08 Stomatocytes Slight 09/25/18 06:08 [place] Cells Slight 09/27/18 06:08 Acanthocytes (Spur) Slight 09/27/18 06:08 ESR 26 mm/hr (0-20) H 09/19/18 07:18 PT 11.7 SECONDS (9.7-12.2) 09/26/18 05:49 INR 1.1 09/26/18 05:49 APTT 43 SECONDS (21-34) H D 09/28/18 12:43 Hexagonal Phase Confirm Negative (Negative) 09/19/18 07:32 Puncture Site Lf 09/28/18 14:55 pCO2 80 mm/Hg (35-45) H* 09/28/18 14:55 pO2 14 mm/Hg (80-100) L* 09/28/18 14:55 HCO3 19.6 mmol/L (21-28) L 09/28/18 14:55 ABG pH 7.14 (7.35-7.45) L* 09/28/18 14:55 ABG Total CO2 29.7 mmol/L (22-28) H 09/28/18 14:55 ABG O2 Saturation 13.8 % (95-98) L 09/28/18 14:55 ABG Base Excess -3.8 mmol/L (-2.0-3.0) L 09/28/18 14:55 Bryan Test Na 09/28/18 14:55 ABG Potassium 5.8 mmol/L (3.6-5.2) H 09/28/18 14:55 A-a O2 Difference 599.0 mm/Hg 09/28/18 14:55 Respiratory Index 42.8 09/28/18 14:55 Sodium 138.0 mmol/l (132-148) 09/28/18 14:55 Chloride 104.0 mmol/L (98-107) 09/28/18 14:55 Glucose 120 mg/dl (65-105) H 09/28/18 14:55 Lactate 6.8 mmol/L (0.7-2.1) H* 09/28/18 14:55 FiO2 100.0 % 09/28/18 14:55 Tidal Volume 450 09/28/18 14:55 PEEP 5 09/28/18 14:55 Crit Value Called To Dr gaeg 09/28/18 14:55 Crit Value Called By Sourav handy 09/28/18 14:55 Crit Value Read Back Y 09/28/18 14:55 Blood Gas Notified Time 1449 09/28/18 14:55 Sodium 133 mmol/L (132-148) 09/28/18 05:43 Potassium 4.4 mmol/L (3.6-5.2) 09/28/18 05:43 Chloride 100 mmol/L (98-107) 09/28/18 05:43 Carbon Dioxide 33 mmol/L (22-30) H 09/28/18 05:43 Anion Gap 5 (10-20) L 09/28/18 05:43 BUN 14 mg/dL (7-17) 09/28/18 05:43 Creatinine 0.7 mg/dL (0.7-1.2) 09/28/18 05:43 Est GFR ( Amer) > 60 09/28/18 05:43 Est GFR (Non-Af Amer) > 60 09/28/18 05:43 POC Glucose (mg/dL) 147 mg/dL (65-110) H 09/28/18 15:03 Random Glucose 117 mg/dL (65-105) H D 09/28/18 05:43 Calcium 8.7 mg/dl (8.6-10.4) 09/28/18 05:43 Phosphorus 3.6 mg/dL (2.5-4.5) 09/28/18 05:43 Magnesium 2.4 mg/dL (1.6-2.3) H 09/28/18 05:43 Total Bilirubin 0.2 mg/dL (0.2-1.3) 09/28/18 05:43 AST 115 U/L (14-36) H D 09/28/18 05:43 ALT 54 U/L (9-52) H 09/28/18 05:43 Alkaline Phosphatase 73 U/L (38-126) 09/28/18 05:43 Total Creatine Kinase 110 U/L (30-135) 09/19/18 20:47 CK-MB (Mass) 0.57 ng/mL (0.0-3.38) 09/19/18 20:47 Troponin I < 0.0120 ng/mL (0.00-0.120) 09/19/18 20:47 C-Reactive Protein 21.20 mg/L (0.0-9.9) H 09/19/18 07:18 Total Protein 5.7 g/dL (6.3-8.3) L 09/28/18 05:43 Albumin 3.1 g/dL (3.5-5.0) L 09/28/18 05:43 Globulin 2.6 gm/dL (2.2-3.9) 09/28/18 05:43 Albumin/Globulin Ratio 1.2 (1.0-2.1) 09/28/18 05:43 Vitamin B12 557 pg/mL (239-931) 09/19/18 07:18 Arterial Blood Potassium 5.8 mmol/L (3.6-5.2) H 09/28/18 14:55 [id number] Ab <9 KAREN (<=20) 09/18/18 20:16 Beta-2 GPI IgG Ab <9 SGU (<=20) 09/18/18 20:16 Beta-2 GPI IgM Ab <9 SMU (<=20) 09/18/18 20:16 Phosphatidylserine IgG <10 U/mL (<10) 09/18/18 20:16 Phosphatidylserine IgA <20 U/mL (<20) 09/18/18 20:16 Phosphatidylserine IgM <25 U/mL (<25) 09/18/18 20:16 Anti-Phospholipid Intrp see note 09/18/18 20:16 Anti-Cardiolipin IgG Ab <14 GPL (<=14) 09/18/18 20:16 Anti-Cardiolipin IgA Ab <11 APL (<=11) 09/18/18 20:16 Anti-Cardiolipin IgM Ab <12 MPL (<=12) 09/18/18 20:16 MTHFR DNA Mutation Anal see note H 09/19/18 07:32 MTHFR Interpretation see note 09/19/18 07:32 MTHFR Reviewed By see note 09/19/18 07:32 JAK2 Accession Number Not given 09/19/18 07:32 JAK2 [id number] Specimen Not given 09/19/18 07:32 JAK2 [id number] Mut Indic Not provided 09/19/18 07:32 JAK2 V617F Mutation missense 01/31/19 07:32 JAK2 [id number] Mut Reference see note 09/19/18 07:32 JAK2 Mutation 25.4 09/19/18 07:32 JAK2 Ex 12-15 (PCR) 14 09/19/18 07:32 JAK2 12-15 Nucleotide Chg see note 09/19/18 07:32 JAK2 12-15 Amino Acid Chg see note 09/19/18 07:32 JAK2 Interpret/Report see note 09/19/18 07:32 Blood Type A POSITIVE 09/27/18 08:13 Antibody Screen Negative 09/27/18 08:13 - Hospital Course Hospital Course: Chief complaint: Worsening left leg pain. HPI: 72-year-old female with a history of thromboembolism, hypertension, hyperlipidemia, gastroesophageal reflux disease came to the emergency room with increasing pain in the left leg. She was recently hospitalized with a retroperitoneal bleed. Following that episode the patient was not taking the Coumadin as well as a Pletal as per cardiology, vascular surgical and PMD opinion.. Patient went to see PMD. At that time she was complaining of left leg pain. Patient was also seen by explosive man, and then seen by prop making supervisor vascular surgery. Patient was having increasing pain in the left leg. Immediately she had CT angiogram, showing evidence of arterial occlusion of the left leg. I spoke to the vascular surgeon Dr. Pichardo, patient needed hospitalization. She came into the emergency room with worsening pain. She has a cold lower extremity on the left side. Worsening pain even at rest noted. Mild nausea vomiting no abdominal pain. Past medical history: DVT, hypertension, hyperlipidemia, gastroesophageal reflux disease Surgical history: Hysterectomy. CT angiogram of the right leg with thrombolysis for acute thrombotic ectatic of the right leg Family history noncontributory Social history non-smoker nonalcoholic. No known drug allergy Medications reviewed. Review of system: Patient is currently having flank pain. Mild nausea noted. No chest pain or shortness of breath On examination: Vital signs stable otherwise. Chest good air entry no rales noted. Heart sounds are regular Abdomen soft. Tenderness in the left leg noted. Patient has a cold lower extremity in the left side. Labs reviewed Persistent bleeding. Stable. Bleeding in the CT scan of the abdomen showing Otherwise labs are stable. Assessment and recommendation: 72-year-old female with a history of arterial thromboembolism, hypertension, hyperlipidemia, gastroesophageal reflux disease. Patient also has a thrombotic episodes. History of thrombocytosis. Patient now admitted with acute retroperitoneal bleeding on the right side involving the adrenal glands. Patient now admitted with a possible ischemia of the left lower extremity. We will get vascular surgery evaluation. Started on IV heparin. We will closely monitor the retroperitoneal hematoma. Patient is at high risk for bleeding and also high risk for thrombosis. Cardiology, hematology evaluation. Discussed with the family. We will follow the patient Course in the hospital: Patient was initially admitted to the hospital because of the acute ischemic changes in the left leg. She's feeling extremely cold, and the pulses left tibialis posterior and dorsalis pedis not palpable. Seen by one of the surgeon. Patient scheduled to have surgery on 09/19/19 Patient underwent bilateral transfemoral embolectomy, patch closure of the right common femoral, balloon angioplasty left anterior tibial and left peroneal, thrombolyzes of the left anterior tibial and left peroneal. Postoperatively patient was showing some improvement in the beginning, but he again after the 4-48 hours her leg showing worsening pain, and the ischemic changes again. Patient again on 09 23 2018 underwent a similar procedure by Doctor Pichardo. Postoperatively the left leg started becoming mottled, ischemic changes, Cytotec and a gangrenous changes noted. After multiple discussion with the patient family and patient, it was decided that patient will benefit to have left below-knee amputation. On 09 27 2018, patient underwent a left below-knee amputation. And there was a significant clots noted in the distal tibial vessels. Because of that the postoperatively patient started on heparin the pain. But the following day patient was doing well. She was out of bed to chair. After she went back to the bed around 1 p.m. patient suddenly becomes tachycardic. While I was examining patient become suddenly asystolic, and also she become apneic. After immediately on the bagging the patient, she become unresponsive, and the heart rate returned. But she tended to become hypotensive, was complaining of some abdominal pain. While evaluating the patient for that. She become asystolic, and apneic. CT of started. Patient was intubated. Emergency TLC was inserted. After prolonged CPR and further aggressive medications and management. The patient did not regain the pulse. In between. Patient had an ST elevation SD, spoke to the prop making supervisor, as the patient does not become responsive, patient is not in a stable condition to have angiogram. But there was a unsuccessful CPR, and CPR was terminated around 15:40, and the patient was pronounced . Family was at bedside. Explained to the family about the overall condition. Possibly patient has a massive heart attack. Patient has a thromboembolic episode. Peripheral vascular disease. Thrombocytosis. Hypertension. Diabetes and hypercholesteremia. Discharge Exam - Head Exam Head Exam: ATRAUMATIC, NORMAL INSPECTION Discharge Plan - Follow Up Plan Condition: GOOD Disposition: WITH WITHOUT AUTOPSY
--- NOTE | 2018-10-04 18:20 | CP.PCM.PN ---
Subjective - Date & Time of Evaluation Date of Evaluation: 09/24/18 Objective - Vital Signs/Intake and Output Vital Signs (last 24 hours): Temp Pulse Resp BP Pulse Ox 97.7 F 135 H 39 H 101/49 L 72 L 09/28/18 12:00 09/28/18 15:37 09/28/18 15:37 09/28/18 15:37 09/28/18 15:30 - Labs Labs: 09/28/18 05:43 09/28/18 05:43 PT 11.7 SECONDS (9.7-12.2) 09/26/18 05:49 INR 1.1 09/26/18 05:49 APTT 43 SECONDS (21-34) H D 09/28/18 12:43
--- NOTE | 2018-10-04 20:42 | PN ---
DATE: 09/24/2018 SUBJECTIVE: The patient is still in the intensive care unit. The patient's family is at bedside. The patient yesterday had revision of left femoral angiography, mechanical thrombolysis, atherectomy, balloon angioplasty of the posterior tibial and peroneal arteries, but today on 09/24/2018, her left leg is more colder and she is complaining of increasing pain, severe pain noted. PHYSICAL EXAMINATION: VITAL SIGNS: Otherwise stable, but elevated blood pressure is noted. MEDICATIONS: Her medications reviewed, currently receiving hydromorphone to reduce the pain. INR is 1.1. She is on anticoagulation. LABORATORY DATA: Labs reviewed. Hemoglobin 9.4, platelet is 609. ASSESSMENT AND PLAN: Discussed with the family regarding the current condition. Given the changes in the left leg, the patient is more likely that might need surgical intervention including amputation of the left leg. We will continue to monitor the circulation, intensive care unit monitoring. We will follow up the patient. Federica Holly MD
--- NOTE | 2018-10-04 20:44 | PN ---
DATE: 09/27/2018 The patient was seen by me postoperatively on 09/27/2018. The patient underwent left below knee amputation. I spoke to the surgeon. There was concern about multiple clots in the tibial vessels, but there was some discharge noted, some bleeding noted in the stump. Postoperatively, the patient is in pain, receiving pain management. Otherwise clinically stable. We will continue to watch in the intensive care unit. Federica Holly MD
--- NOTE | 2018-10-04 20:47 | PN ---
DATE: 09/25/2018 The patient was seen by me around 8:30 p.m. on 09/25/2018. She is still on the intensive care unit, currently being managed in the ICU closely with ICU team and also surgical team. Less pain than yesterday, but continues to have more pain. Seen by clinical dermatologist. Left leg is increasingly worsening, changes in the discoloration noted. Spoke to the family, agreeing for the surgical intention. We will plan for the surgery possibly tomorrow. Discussed with the Surgery. Federica Holly MD
== END 2018-09-28 15:40 | DRG 270 ==
LOC: C.ER 19:29 → C.9E 20:59 → C.5S 21:48 → C.9I 09-19 09:23 → C.6T 09-21 16:16 → C.9I 09-23 20:56
PROVIDERS: ADMIT Internal Medicine; ATTEND Internal Medicine
PROC: 04CL3ZZ Extirpation of Matter from Left Femoral Artery, Percutaneous Approach (ICD-10-PCS; 2018-09-19)
PROC: 047K3ZZ Dilation of Right Femoral Artery, Percutaneous Approach (ICD-10-PCS; 2018-09-19)
PROC: 04CK3ZZ Extirpation of Matter from Right Femoral Artery, Percutaneous Approach (ICD-10-PCS; 2018-09-19)
PROC: 04CN3ZZ Extirpation of Matter from Left Popliteal Artery, Percutaneous Approach (ICD-10-PCS; 2018-09-19)
PROC: 047S3ZZ Dilation of Left Posterior Tibial Artery, Percutaneous Approach (ICD-10-PCS; 2018-09-19)
PROC: 047Q3ZZ Dilation of Left Anterior Tibial Artery, Percutaneous Approach (ICD-10-PCS; 2018-09-19)
PROC: 047U3ZZ Dilation of Left Peroneal Artery, Percutaneous Approach (ICD-10-PCS; 2018-09-19)
PROC: 3E05317 Introduction of Other Thrombolytic into Peripheral Artery, Percutaneous Approach (ICD-10-PCS; 2018-09-19)
PROC: 0Y6J0Z1 Detachment at Left Lower Leg, High, Open Approach (ICD-10-PCS; principal; 2018-09-27 14:00)
DX: I82.432 Acute embolism and thrombosis of left popliteal vein (principal); K66.1 Hemoperitoneum; I75.022 Atheroembolism of left lower extremity; I96 Gangrene, not elsewhere classified; I74.3 Embolism and thrombosis of arteries of the lower extremities; K59.00 Constipation, unspecified; D73.5 Infarction of spleen; Z79.01 Long term (current) use of anticoagulants; I10 Essential (primary) hypertension; G30.9 Alzheimer's disease, unspecified; E78.5 Hyperlipidemia, unspecified; F02.80 Dementia in other diseases classified elsewhere, unspecified severity, without behavioral disturbance, psychotic disturbance, mood disturbance, and anxiety; I99.8 Other disorder of circulatory system; K86.89 Other specified diseases of pancreas; K29.70 Gastritis, unspecified, without bleeding; I70.203 Unspecified atherosclerosis of native arteries of extremities, bilateral legs; K21.0 Gastro-esophageal reflux disease with esophagitis; D64.9 Anemia, unspecified